=== PATIENT | male | born 1960 | race African-American/Black ===

== ENCOUNTER 2021-08-18 17:19 | Inpatient (IN) ==
[2021-08-18 19:09] LABS: Basophils # 0.1 10*3/uL (0.0-0.2); Basophils % 1.3 % (0.0-0.8); Eosinophils # 0.3 10*3/uL (0.0-0.87); Hematocrit 29.8 VOL% (42.0-52.0); Hemoglobin 9.4 GM/DL (14.0-18.0); Immature Granulocytes % 0.4 %; Immature Granulocytes Absolute 0.03 #; Lymphocytes # 1.5 10*3/uL (1.4-4.0); Lymphocytes % 17.3 % (21.2-54.2); Mean Corpuscular HGB Conc 31.5 GM/DL (32-36); Mean Corpuscular Volume 89.5 FL (87-102); Mean Platelet Volume 10.1 FL (9.6-12.0); Monocytes # 0.4 10*3/uL (0.11-0.8); Monocytes % 4.6 % (1.7-12.7); Neutrophils % 72.4 % (38.7-73.9); Platelet Count 320 T/CUMM (130-400); Red Blood Count 3.33 MC/CUMM (3.8-5.5); Red Cell Distribution Width 13.7 % (9.3-17.3); White Blood Count 8.5 T/CUMM (4-12)
[2021-08-18] MEDS ORDERED: PROMETHAZINE INJ 25 MG in SODIUM CHLORIDE 0.9% 50 ML IV STA (19:12)
[2021-08-18] MEDS ORDERED: SODIUM CHLORIDE 0.9% 1,000 ML IV STA (19:12)
[2021-08-18] MEDS ORDERED: PROMETHAZINE 25 MG/1 ML VIAL ONE (19:12)
[2021-08-18 19:28] LABS: Alanine Aminotransferase 10 U/L (16-61); Albumin 2.9 G/DL (3.4-5.0); Alkaline Phosphatase 57 U/L (45-117); Aspartate Amino Transferase 11 U/L (0-37); Bilirubin,Total < 0.39 MG/DL (0.20-1.00); Blood Urea Nitrogen 91 MG/DL (7-18); Carbon Dioxide 27 MMOL/L (21-32); Chloride 105 MMOL/L (98-107); Estimated Glom Filtration Rate 16 ML/MIN; Glucose 87 MG/DL (74-106); Osmolality,Calculated 303.5 MOS/KG (273-304); Potassium 4.1 MMOL/L (3.5-5.1); Sodium 139 MMOL/L (136-145); Total Protein 6.5 G/DL (6.4-8.2)
[2021-08-18] MEDS ORDERED: ONDANSETRON 4 MG/2 ML VIAL ONE (21:44)
[2021-08-18] MEDS ORDERED: ONDANSETRON 4 MG/2 ML VIAL IV STA (21:44)
[2021-08-18] MEDS ORDERED: ZALEPLON 5 MG CAPSULE PO PRN (22:47)
[2021-08-18] MEDS ORDERED: MORPHINE 2 MG/1 ML SYRINGE IV PRN (22:47)
[2021-08-18] MEDS ORDERED: GLUCAGON 1 MG VIAL IM PRN ×2 (22:47)
[2021-08-18] MEDS ORDERED: guaiFENesin/DM ER 600-30 MG TABLET PO PRN (22:47)
[2021-08-18] MEDS ORDERED: DEXTROSE 10% 250 ML BAG IV PRN (22:47)
[2021-08-18] MEDS ORDERED: diphenhydrAMINE CAP 25 MG CAPSULE PO PRN (22:47)
[2021-08-18] MEDS ORDERED: DEXTROSE 50% 25 GM/50 ML VIAL IV PRN (22:47)
[2021-08-18] MEDS ORDERED: hydrALAZINE 20 MG/1 ML VIAL IV PRN (22:47)
[2021-08-18] MEDS ORDERED: NICOTINE 21 MG/24 HR PATCH TRANSDERM PRN (22:47)
[2021-08-19] MEDS: SODIUM CHLORIDE 0.9% 1,000 ML IV SCH ×2 (00:06→15:38)
[2021-08-19] MEDS: HEPARIN 5,000 UNIT/1 ML VIAL SUBCUT SCH ×3 (00:06→21:33)
[2021-08-19] MEDS: cefTRIAXone 1,000 MG in SODIUM CHLORIDE 0.9% 100 ML IV SCH ×2 (00:07→23:09)
[2021-08-19 03:56] LABS: Hepatitis B Core IgM Quant 0.07 Index; Hepatitis B Surface Ag Quant < 0.10 Index; Hepatitis B Surface Ag Result Non-Reactive (NonReactive); Hepatitis C Virus Ab Quant 0.15 Index; Hepatitis C Virus Ab Result Non-Reactive (NonReactive)
[2021-08-19] MEDS: ONDANSETRON 4 MG/2 ML VIAL IV PRN ×3 (05:23→23:11)
[2021-08-19 05:39] LABS: Basophils # 0.1 10*3/uL (0.0-0.2); Basophils % 0.8 % (0.0-0.8); Eosinophils # 0.3 10*3/uL (0.0-0.87); Eosinophils % 3.3 % (0.00-10.9); Hematocrit 28.8 VOL% (42.0-52.0); Hemoglobin 8.7 GM/DL (14.0-18.0); Immature Granulocytes % 0.5 %; Immature Granulocytes Absolute 0.04 #; Lymphocytes # 1.3 10*3/uL (1.4-4.0); Mean Corpuscular HGB Conc 30.2 GM/DL (32-36); Mean Corpuscular Volume 91.7 FL (87-102); Mean Platelet Volume 10.3 FL (9.6-12.0); Monocytes # 0.3 10*3/uL (0.11-0.8); Monocytes % 4.1 % (1.7-12.7); Neutrophils % 74.3 % (38.7-73.9); Platelet Count 322 T/CUMM (130-400); Red Blood Count 3.14 MC/CUMM (3.8-5.5); Red Cell Distribution Width 13.7 % (9.3-17.3); White Blood Count 7.5 T/CUMM (4-12)
[2021-08-19 05:55] LABS: Alanine Aminotransferase < 9 U/L (16-61); Albumin 2.6 G/DL (3.4-5.0); Alkaline Phosphatase 51 U/L (45-117); Aspartate Amino Transferase 11 U/L (0-37); Bilirubin,Total < 0.39 MG/DL (0.20-1.00); Blood Urea Nitrogen 91 MG/DL (7-18); Calcium 7.8 MG/DL (8.5-10.1); Carbon Dioxide 25 MMOL/L (21-32); Chloride 107 MMOL/L (98-107); Estimated Glom Filtration Rate 17 ML/MIN; Glucose 83 MG/DL (74-106); Osmolality,Calculated 307.3 MOS/KG (273-304); Potassium 3.9 MMOL/L (3.5-5.1); Sodium 141 MMOL/L (136-145); Total Protein 5.9 G/DL (6.4-8.2)
[2021-08-19] MEDS: PANTOPRAZOLE 40 MG TABLET PO SCH (09:10)
[2021-08-19] MEDS ORDERED: ALUMINUM/MAGNES/SIMETH MAX STR 30 ML UDCUP PO PRN (13:18)
[2021-08-20 05:04] LABS: Basophils % 0.4 % (0.0-0.8); Eosinophils # 0.1 10*3/uL (0.0-0.87); Eosinophils % 1.1 % (0.00-10.9); Hematocrit 26.7 VOL% (42.0-52.0); Hemoglobin 8.1 GM/DL (14.0-18.0); Immature Granulocytes % 0.4 %; Immature Granulocytes Absolute 0.04 #; Lymphocytes # 1.4 10*3/uL (1.4-4.0); Lymphocytes % 13.3 % (21.2-54.2); Mean Corpuscular HGB Conc 30.3 GM/DL (32-36); Mean Corpuscular Volume 91.1 FL (87-102); Mean Platelet Volume 10.4 FL (9.6-12.0); Monocytes # 0.5 10*3/uL (0.11-0.8); Monocytes % 4.7 % (1.7-12.7); Neutrophils % 80.1 % (38.7-73.9); Platelet Count 281 T/CUMM (130-400); Red Blood Count 2.93 MC/CUMM (3.8-5.5); Red Cell Distribution Width 13.6 % (9.3-17.3); White Blood Count 10.2 T/CUMM (4-12)
[2021-08-20 05:24] LABS: Alanine Aminotransferase < 9 U/L (16-61); Albumin 2.5 G/DL (3.4-5.0); Alkaline Phosphatase 47 U/L (45-117); Aspartate Amino Transferase 11 U/L (0-37); Bilirubin,Total < 0.39 MG/DL (0.20-1.00); Blood Urea Nitrogen 93 MG/DL (7-18); Calcium 7.4 MG/DL (8.5-10.1); Carbon Dioxide 21 MMOL/L (21-32); Chloride 110 MMOL/L (98-107); Estimated Glom Filtration Rate 15 ML/MIN; Glucose 76 MG/DL (74-106); Osmolality,Calculated 313.8 MOS/KG (273-304); Sodium 144 MMOL/L (136-145); Total Protein 5.6 G/DL (6.4-8.2)
[2021-08-20] MEDS: SODIUM CHLORIDE 0.9% 1,000 ML IV SCH (08:23)
[2021-08-20] MEDS: PANTOPRAZOLE 40 MG TABLET PO SCH ×2 (09:03→20:56)
[2021-08-20] MEDS: HEPARIN 5,000 UNIT/1 ML VIAL SUBCUT SCH ×2 (09:03→20:56)
[2021-08-20 10:10] LABS: INR 1.1; PT Patient Result 12.2 SECS (10.5-12.0)
[2021-08-20] MEDS: ONDANSETRON 4 MG/2 ML VIAL IV PRN (16:44)
[2021-08-20] MEDS: cefTRIAXone 1,000 MG in SODIUM CHLORIDE 0.9% 100 ML IV SCH (22:10)
[2021-08-21] MEDS: SODIUM CHLORIDE 0.9% 1,000 ML IV SCH ×3 (02:26→22:50)
[2021-08-21 06:11] LABS: Basophils # 0.1 10*3/uL (0.0-0.2); Basophils % 0.7 % (0.0-0.8); Eosinophils # 0.2 10*3/uL (0.0-0.87); Eosinophils % 2.3 % (0.00-10.9); Hematocrit 26.5 VOL% (42.0-52.0); Lymphocytes # 1.5 10*3/uL (1.4-4.0); Lymphocytes % 17.1 % (21.2-54.2); Mean Corpuscular HGB Conc 30.2 GM/DL (32-36); Mean Corpuscular Volume 91.1 FL (87-102); Mean Platelet Volume 10.5 FL (9.6-12.0); Monocytes # 0.5 10*3/uL (0.11-0.8); Monocytes % 5.8 % (1.7-12.7); Neutrophils % 73.5 % (38.7-73.9); Platelet Count 282 T/CUMM (130-400); Red Blood Count 2.91 MC/CUMM (3.8-5.5); Red Cell Distribution Width 13.9 % (9.3-17.3); White Blood Count 8.9 T/CUMM (4-12)
[2021-08-21 06:23] LABS: PT Patient Result 11.7 SECS (10.5-12.0)
[2021-08-21 06:35] LABS: Alanine Aminotransferase < 9 U/L (16-61); Albumin 2.4 G/DL (3.4-5.0); Alkaline Phosphatase 44 U/L (45-117); Aspartate Amino Transferase 10 U/L (0-37); Bilirubin,Total < 0.39 MG/DL (0.20-1.00); Blood Urea Nitrogen 92 MG/DL (7-18); Calcium 7.5 MG/DL (8.5-10.1); Carbon Dioxide 22 MMOL/L (21-32); Chloride 112 MMOL/L (98-107); Estimated Glom Filtration Rate 16 ML/MIN; Glucose 75 MG/DL (74-106); Osmolality,Calculated 314.7 MOS/KG (273-304); Sodium 145 MMOL/L (136-145); Total Protein 5.6 G/DL (6.4-8.2)
[2021-08-21] MEDS: HEPARIN 5,000 UNIT/1 ML VIAL SUBCUT SCH ×2 (08:57→21:09)
[2021-08-21] MEDS: PANTOPRAZOLE 40 MG TABLET PO SCH ×2 (09:24→21:08)
[2021-08-21 15:05] LABS: Hematocrit 29.8 VOL% (42.0-52.0)
[2021-08-21] MEDS: cefTRIAXone 1,000 MG in SODIUM CHLORIDE 0.9% 100 ML IV SCH (22:50)
[2021-08-22 05:21] LABS: Basophils # 0.1 10*3/uL (0.0-0.2); Basophils % 0.9 % (0.0-0.8); Eosinophils # 0.4 10*3/uL (0.0-0.87); Eosinophils % 5.3 % (0.00-10.9); Hemoglobin 8.5 GM/DL (14.0-18.0); Immature Granulocytes % 0.4 %; Immature Granulocytes Absolute 0.03 #; Lymphocytes # 1.5 10*3/uL (1.4-4.0); Mean Corpuscular HGB Conc 30.4 GM/DL (32-36); Mean Corpuscular Volume 92.4 FL (87-102); Mean Platelet Volume 10.3 FL (9.6-12.0); Monocytes # 0.4 10*3/uL (0.11-0.8); Monocytes % 5.6 % (1.7-12.7); Neutrophils % 68.8 % (38.7-73.9); Platelet Count 279 T/CUMM (130-400); Red Blood Count 3.03 MC/CUMM (3.8-5.5); Red Cell Distribution Width 13.8 % (9.3-17.3); White Blood Count 7.8 T/CUMM (4-12)
[2021-08-22 05:32] LABS: INR 1.1; PT Patient Result 11.9 SECS (10.5-12.0)
[2021-08-22 05:46] LABS: Alanine Aminotransferase 9 U/L (16-61); Albumin 2.3 G/DL (3.4-5.0); Alkaline Phosphatase 44 U/L (45-117); Aspartate Amino Transferase 9 U/L (0-37); Bilirubin,Total < 0.39 MG/DL (0.20-1.00); Blood Urea Nitrogen 85 MG/DL (7-18); Calcium 7.6 MG/DL (8.5-10.1); Carbon Dioxide 21 MMOL/L (21-32); Chloride 112 MMOL/L (98-107); Estimated Glom Filtration Rate 18 ML/MIN; Glucose 75 MG/DL (74-106); Osmolality,Calculated 312.7 MOS/KG (273-304); Sodium 145 MMOL/L (136-145); Total Protein 5.5 G/DL (6.4-8.2)
[2021-08-22] MEDS: ONDANSETRON 4 MG/2 ML VIAL IV PRN (05:53)
[2021-08-22] MEDS: HEPARIN 5,000 UNIT/1 ML VIAL SUBCUT SCH ×2 (08:09→20:55)
[2021-08-22] MEDS ORDERED: DIAZEPAM 5 MG TABLET PO ONE (13:09)
[2021-08-22] MEDS: PANTOPRAZOLE 40 MG TABLET PO SCH ×2 (13:14→20:55)
[2021-08-22 16:40] LABS: Neutrophils,Peritoneal Fluid 35 %; RBC,Peritoneal Fluid 28 T/CUMM
[2021-08-22] MEDS: SODIUM CHLORIDE 0.9% 1,000 ML IV SCH (18:26)
[2021-08-22] MEDS: cefTRIAXone 1,000 MG in SODIUM CHLORIDE 0.9% 100 ML IV SCH (23:11)
[2021-08-23] MEDS: SODIUM CHLORIDE 0.9% 1,000 ML IV SCH ×2 (04:01→13:33)
[2021-08-23 05:04] LABS: Basophils % 0.5 % (0.0-0.8); Eosinophils # 0.4 10*3/uL (0.0-0.87); Eosinophils % 4.7 % (0.00-10.9); Hemoglobin 8.7 GM/DL (14.0-18.0); Immature Granulocytes % 0.4 %; Immature Granulocytes Absolute 0.03 #; Lymphocytes # 1.4 10*3/uL (1.4-4.0); Lymphocytes % 16.6 % (21.2-54.2); Mean Corpuscular HGB Conc 31.1 GM/DL (32-36); Mean Corpuscular Volume 89.5 FL (87-102); Mean Platelet Volume 9.9 FL (9.6-12.0); Monocytes # 0.5 10*3/uL (0.11-0.8); Monocytes % 5.7 % (1.7-12.7); Neutrophils % 72.1 % (38.7-73.9); Platelet Count 280 T/CUMM (130-400); Red Blood Count 3.13 MC/CUMM (3.8-5.5); Red Cell Distribution Width 13.6 % (9.3-17.3); White Blood Count 8.5 T/CUMM (4-12)
[2021-08-23 05:21] LABS: Calcium 7.3 MG/DL (8.5-10.1); Osmolality,Calculated 311.1 MOS/KG (273-304); Potassium 3.7 MMOL/L (3.5-5.1)
[2021-08-23] MEDS ORDERED: LOPERAMIDE 2 MG CAPSULE PO ONE (05:25)
[2021-08-23] MEDS: HEPARIN 5,000 UNIT/1 ML VIAL SUBCUT SCH (09:39)
[2021-08-23] MEDS: PANTOPRAZOLE 40 MG TABLET PO SCH ×2 (09:39→22:24)
[2021-08-23] MEDS: cefTRIAXone 1,000 MG in SODIUM CHLORIDE 0.9% 100 ML IV SCH (22:25)
[2021-08-24 04:58] LABS: Basophils # 0.1 10*3/uL (0.0-0.2); Basophils % 0.7 % (0.0-0.8); Eosinophils # 0.5 10*3/uL (0.0-0.87); Hematocrit 28.4 VOL% (42.0-52.0); Hemoglobin 8.6 GM/DL (14.0-18.0); Immature Granulocytes % 0.7 %; Immature Granulocytes Absolute 0.05 #; Lymphocytes # 1.8 10*3/uL (1.4-4.0); Mean Corpuscular HGB Conc 30.3 GM/DL (32-36); Mean Platelet Volume 10.3 FL (9.6-12.0); Monocytes # 0.5 10*3/uL (0.11-0.8); Monocytes % 6.4 % (1.7-12.7); Neutrophils % 60.2 % (38.7-73.9); Platelet Count 278 T/CUMM (130-400); Red Blood Count 3.12 MC/CUMM (3.8-5.5); Red Cell Distribution Width 13.8 % (9.3-17.3); White Blood Count 7.3 T/CUMM (4-12)
[2021-08-24 05:19] LABS: Calcium 7.3 MG/DL (8.5-10.1); Osmolality,Calculated 300.4 MOS/KG (273-304); Potassium 3.6 MMOL/L (3.5-5.1)
[2021-08-24] MEDS: LACTATED RINGERS 1,000 ML IV SCH (11:15)
[2021-08-24] MEDS ORDERED: BISACODYL 5 MG TABLET PO ONE (12:00)
[2021-08-24] MEDS: SODIUM CHLORIDE 0.9% 1,000 ML IV SCH ×2 (12:11→13:55)
[2021-08-24] MEDS ORDERED: propofoL 200 MG/20 ML VIAL IV ONE (13:03)
[2021-08-24] MEDS ORDERED: LIDOCAINE 2% 5 ML VIAL ONE (13:03)
[2021-08-24] MEDS: PANTOPRAZOLE 40 MG TABLET PO SCH ×2 (14:00→21:58)
[2021-08-24] MEDS ORDERED: POLYETHYLENE GLYCOL POWDER 255 GM BOTTLE PO ONE (18:00)
[2021-08-24] MEDS ORDERED: MAGNESIUM CITRATE 300 ML BOTTLE PO ONE (21:00)
[2021-08-25] MEDS: cefTRIAXone 1,000 MG in SODIUM CHLORIDE 0.9% 100 ML IV SCH (00:28)
[2021-08-25 04:23] LABS: Basophils # 0.1 10*3/uL (0.0-0.2); Basophils % 1.1 % (0.0-0.8); Eosinophils # 0.5 10*3/uL (0.0-0.87); Eosinophils % 6.3 % (0.00-10.9); Immature Granulocytes % 0.6 %; Immature Granulocytes Absolute 0.04 #; Lymphocytes # 1.8 10*3/uL (1.4-4.0); Lymphocytes % 25.3 % (21.2-54.2); Mean Corpuscular HGB Conc 30.8 GM/DL (32-36); Monocytes # 0.5 10*3/uL (0.11-0.8); Monocytes % 6.3 % (1.7-12.7); Neutrophils % 60.4 % (38.7-73.9); Platelet Count 259 T/CUMM (130-400); Red Blood Count 2.89 MC/CUMM (3.8-5.5); Red Cell Distribution Width 13.7 % (9.3-17.3); White Blood Count 7.3 T/CUMM (4-12)
[2021-08-25 04:36] LABS: Osmolality,Calculated 296.4 MOS/KG (273-304); Potassium 3.9 MMOL/L (3.5-5.1)
[2021-08-25 04:40] LABS: INR 1.1; PT Patient Result 11.8 SECS (10.5-12.0)
[2021-08-25] MEDS ORDERED: LACTATED RINGERS 1,000 ML IV SCH (08:00)
[2021-08-25] MEDS: PANTOPRAZOLE 40 MG TABLET PO SCH (09:37)
[2021-08-25] MEDS: LACTATED RINGERS 1,000 ML IV SCH (11:25)
[2021-08-25 16:42] VITALS: BP 129/81
== END 2021-08-25 18:31 | disposition home or self-care (01) | DRG 392 ==
LOC: N.ED 17:19 → SUATTDRO 22:47 → N.EDINP 22:47 → N.TELES 08-19 16:18
PROVIDERS: ADMIT Internal Medicine; ATTEND Internal Medicine

== ENCOUNTER 2021-09-13 06:40 | Inpatient (IN) ==
[2021-09-13 08:00] LABS: Basophils % 0.1 % (0.0-0.8); Eosinophils # 0.1 10*3/uL (0.0-0.87); Eosinophils % 0.9 % (0.00-10.9); Hematocrit 31.8 VOL% (42.0-52.0); Hemoglobin 9.6 GM/DL (14.0-18.0); Immature Granulocytes % 0.6 %; Immature Granulocytes Absolute 0.04 #; Lymphocytes # 0.9 10*3/uL (1.4-4.0); Lymphocytes % 13.5 % (21.2-54.2); Mean Corpuscular HGB Conc 30.2 GM/DL (32-36); Mean Corpuscular Volume 91.9 FL (87-102); Monocytes # 0.3 10*3/uL (0.11-0.8); Neutrophils % 79.9 % (38.7-73.9); Platelet Count 401 T/CUMM (130-400); Red Blood Count 3.46 MC/CUMM (3.8-5.5); Red Cell Distribution Width 15.4 % (9.3-17.3); White Blood Count 6.8 T/CUMM (4-12)
[2021-09-13 08:09] LABS: Mucus,Urine Occasional /LPF (Occasional); RBC,Urine 4152 /HPF (0-4)
[2021-09-13 08:10] LABS: Glucose,Urine (UA) Negative (Negative); Protein,Urine 100 mg/dL (Negative); Urine Appearance Cloudy (Clear); Urine Color Brown (Yellow)
[2021-09-13 08:11] LABS: Bilirubin,Urine Moderate mg/dL (Negative); Blood, Urine Large mg/dL (Negative); Ketones,Urine 15 mg/dL (Negative); Nitrite,Urine Negative (Negative); Urine Urobilinogen 0.2 eU/dL (<2.0)
[2021-09-13 08:14] LABS: PT Patient Result 11.4 SECS (10.5-12.0)
[2021-09-13 08:20] LABS: Alanine Aminotransferase < 9 U/L (16-61); Albumin 2.1 G/DL (3.4-5.0); Alkaline Phosphatase 41 U/L (45-117); Aspartate Amino Transferase 11 U/L (0-37); Bilirubin,Total < 0.39 MG/DL (0.20-1.00); Blood Urea Nitrogen 106 MG/DL (7-18); Calcium 7.9 MG/DL (8.5-10.1); Carbon Dioxide 20 MMOL/L (21-32); Chloride 111 MMOL/L (98-107); Estimated Glom Filtration Rate 14 ML/MIN; Glucose 80 MG/DL (74-106); Osmolality,Calculated 314.1 MOS/KG (273-304); Potassium 5.4 MMOL/L (3.5-5.1); Sodium 142 MMOL/L (136-145); Total Protein 5.3 G/DL (6.4-8.2)
[2021-09-13] MEDS ORDERED: SODIUM CHLORIDE 0.9% 500 ML IV STA (09:14)
[2021-09-13] MEDS ORDERED: GLUCAGON 1 MG VIAL IM PRN (10:22)
[2021-09-13] MEDS ORDERED: ACETAMINOPHEN 325 MG TABLET PO PRN (10:22)
[2021-09-13] MEDS ORDERED: DEXTROSE 10% 25 GM/250 ML BAG IV PRN (10:22)
[2021-09-13] MEDS ORDERED: ONDANSETRON 4 MG/2 ML VIAL IV PRN (10:22)
[2021-09-13] MEDS ORDERED: SODIUM CHLORIDE 0.9% 1,000 ML IV STA (10:35)
[2021-09-13] MEDS ORDERED: ALBUMIN 25% 12.5 GM/50 ML VIAL IV ONE ×2 (12:45→12:48)
[2021-09-13] MEDS: INSULIN LISPRO 100 UNIT/ML SUBCUT SCH ×3 (13:47→22:42)
[2021-09-13] MEDS: cefTRIAXone 2,000 MG in SODIUM CHLORIDE 0.9% 100 ML IV SCH (14:16)
[2021-09-13 14:25] LABS: Neutrophils,Peritoneal Fluid 15 %
[2021-09-13] MEDS: SODIUM CHLORIDE 0.9% 1,000 ML IV SCH (14:25)
[2021-09-13 14:33] LABS: RBC,Peritoneal Fluid 1127 T/CUMM
[2021-09-13 17:21] LABS: Hemoglobin 9.7 GM/DL (14.0-18.0)
[2021-09-13 17:45] LABS: Calcium 7.4 MG/DL (8.5-10.1); Osmolality,Calculated 318.8 MOS/KG (273-304); Potassium 5.1 MMOL/L (3.5-5.1)
[2021-09-13 19:00] LABS: Hematocrit 32.6 VOL% (42.0-52.0); Hemoglobin 9.9 GM/DL (14.0-18.0)
[2021-09-13] MEDS: TOPIRAMATE 25 MG TABLET PO SCH (20:44)
[2021-09-13] MEDS: ATORVASTATIN 40 MG TABLET PO SCH (20:44)
[2021-09-14 00:52] LABS: Hematocrit 28.9 VOL% (42.0-52.0); Hemoglobin 8.7 GM/DL (14.0-18.0)
[2021-09-14] MEDS: SODIUM CHLORIDE 0.9% 1,000 ML IV SCH ×2 (01:06→14:25)
[2021-09-14 06:14] LABS: Basophils % 0.1 % (0.0-0.8); Eosinophils # 0.1 10*3/uL (0.0-0.87); Eosinophils % 1.5 % (0.00-10.9); Hematocrit 29.9 VOL% (42.0-52.0); Hemoglobin 9.1 GM/DL (14.0-18.0); Immature Granulocytes % 0.6 %; Immature Granulocytes Absolute 0.04 #; Lymphocytes % 15.2 % (21.2-54.2); Mean Corpuscular HGB Conc 30.4 GM/DL (32-36); Mean Platelet Volume 10.4 FL (9.6-12.0); Monocytes # 0.4 10*3/uL (0.11-0.8); Monocytes % 5.8 % (1.7-12.7); Neutrophils % 76.8 % (38.7-73.9); Platelet Count 351 T/CUMM (130-400); Red Blood Count 3.25 MC/CUMM (3.8-5.5); Red Cell Distribution Width 15.5 % (9.3-17.3); White Blood Count 6.8 T/CUMM (4-12)
[2021-09-14 06:33] LABS: Calcium 7.3 MG/DL (8.5-10.1); Osmolality,Calculated 318.7 MOS/KG (273-304); Potassium 5.3 MMOL/L (3.5-5.1)
[2021-09-14] MEDS: NICOTINE 21 MG/24 HR PATCH TRANSDERM SCH (08:19)
[2021-09-14] MEDS: TOPIRAMATE 25 MG TABLET PO SCH ×3 (08:20→20:35)
[2021-09-14] MEDS: BISACODYL 5 MG TABLET PO SCH (08:20)
[2021-09-14] MEDS: ASCORBIC ACID 500 MG TABLET PO SCH (08:20)
[2021-09-14] MEDS: FERROUS SULFATE 325 MG TABLET PO SCH (08:20)
[2021-09-14] MEDS ORDERED: SODIUM POLYSTYRENE SULFATE 15 GM/60 ML BOTTLE PO STA (08:45)
[2021-09-14] MEDS: INSULIN LISPRO 100 UNIT/ML SUBCUT SCH ×4 (09:06→20:02)
[2021-09-14] MEDS: cefTRIAXone 2,000 MG in SODIUM CHLORIDE 0.9% 100 ML IV SCH (10:35)
[2021-09-14] MEDS: PANTOPRAZOLE 40 MG VIAL IV SCH (10:35)
[2021-09-14] MEDS: ATORVASTATIN 40 MG TABLET PO SCH (20:35)
[2021-09-15] MEDS: SODIUM CHLORIDE 0.9% 1,000 ML IV SCH ×2 (04:09→19:38)
[2021-09-15 05:48] LABS: Basophils % 0.3 % (0.0-0.8); Eosinophils # 0.2 10*3/uL (0.0-0.87); Eosinophils % 1.9 % (0.00-10.9); Hematocrit 30.5 VOL% (42.0-52.0); Hemoglobin 9.3 GM/DL (14.0-18.0); Immature Granulocytes % 0.4 %; Immature Granulocytes Absolute 0.03 #; Lymphocytes # 1.1 10*3/uL (1.4-4.0); Lymphocytes % 13.4 % (21.2-54.2); Mean Corpuscular HGB Conc 30.5 GM/DL (32-36); Mean Corpuscular Volume 92.4 FL (87-102); Mean Platelet Volume 9.9 FL (9.6-12.0); Monocytes # 0.5 10*3/uL (0.11-0.8); Monocytes % 6.2 % (1.7-12.7); Neutrophils % 77.8 % (38.7-73.9); Platelet Count 326 T/CUMM (130-400); Red Cell Distribution Width 15.4 % (9.3-17.3); White Blood Count 7.9 T/CUMM (4-12)
[2021-09-15 06:09] LABS: Alanine Aminotransferase < 9 U/L (16-61); Albumin 1.8 G/DL (3.4-5.0); Alkaline Phosphatase 41 U/L (45-117); Aspartate Amino Transferase 10 U/L (0-37); Bilirubin,Total < 0.39 MG/DL (0.20-1.00); Blood Urea Nitrogen 95 MG/DL (7-18); Calcium 7.5 MG/DL (8.5-10.1); Carbon Dioxide 19 MMOL/L (21-32); Chloride 117 MMOL/L (98-107); Glucose 111 MG/DL (74-106); Osmolality,Calculated 317.7 MOS/KG (273-304); Potassium 4.4 MMOL/L (3.5-5.1); Sodium 145 MMOL/L (136-145); Total Protein 4.5 G/DL (6.4-8.2)
[2021-09-15] MEDS: INSULIN LISPRO 100 UNIT/ML SUBCUT SCH ×4 (07:15→20:25)
[2021-09-15] MEDS ORDERED: fentaNYL 100 MCG/2 ML VIAL ONE (09:03)
[2021-09-15] MEDS ORDERED: LIDOCAINE 1%/EPI INJ 20 ML VIAL ONE (09:06)
[2021-09-15] MEDS ORDERED: BUPIVACAINE MPF 0.25% 30 ML VIAL ONE (09:06)
[2021-09-15] MEDS ORDERED: TISSUE ADHESIVE 1 EACH APPLICATOR TOP ONE (09:06)
[2021-09-15] MEDS: BISACODYL 5 MG TABLET PO SCH (09:20)
[2021-09-15] MEDS: FERROUS SULFATE 325 MG TABLET PO SCH (09:20)
[2021-09-15] MEDS: ASCORBIC ACID 500 MG TABLET PO SCH (09:21)
[2021-09-15] MEDS: TOPIRAMATE 25 MG TABLET PO SCH ×4 (09:21→20:56)
[2021-09-15] MEDS ORDERED: PHENYLEPHRINE 1 MG/10 ML SYRINGE IV ONE (09:43)
[2021-09-15] MEDS ORDERED: PHENYLEPHRINE 10 MG/1 ML VIAL IV ONE (09:53)
[2021-09-15] MEDS ORDERED: INDOCYANINE GREEN 25 MG VIAL IV ONE (10:08)
[2021-09-15] MEDS ORDERED: DESFLURANE 1 UNIT/15 MINUTE INH ONE (10:17)
[2021-09-15] MEDS ORDERED: ROCURONIUM 50 MG/5 ML VIAL IV ONE (10:17)
[2021-09-15] MEDS ORDERED: ETOMIDATE 40 MG/20 ML VIAL IV ONE (10:17)
[2021-09-15] MEDS ORDERED: SUCCINYLCHOLINE 200 MG/10 ML VIAL ONE (10:17)
[2021-09-15] MEDS ORDERED: LIDOCAINE 2% 5 ML VIAL ONE (10:17)
[2021-09-15] MEDS ORDERED: ONDANSETRON 4 MG/2 ML VIAL ONE (10:18)
[2021-09-15] MEDS ORDERED: SUGAMMADEX 200 MG/2 ML VIAL IV ONE (10:37)
[2021-09-15] MEDS ORDERED: HYDROmorphone 1 MG/1 ML SYRINGE ONE (11:46)
[2021-09-15] MEDS ORDERED: ONDANSETRON 4 MG/2 ML VIAL IV PRN (11:46)
[2021-09-15] MEDS ORDERED: HYDROmorphone 1 MG/1 ML SYRINGE IV PRN (11:46)
[2021-09-15] MEDS: cefTRIAXone 2,000 MG in SODIUM CHLORIDE 0.9% 100 ML IV SCH (14:33)
[2021-09-15] MEDS: NICOTINE 21 MG/24 HR PATCH TRANSDERM SCH (14:34)
[2021-09-15] MEDS: PANTOPRAZOLE 40 MG VIAL IV SCH (14:36)
[2021-09-15] MEDS: HYDROmorphone 1 MG/1 ML SYRINGE IV PRN (18:32)
[2021-09-15] MEDS: ATORVASTATIN 40 MG TABLET PO SCH (20:56)
[2021-09-16 05:35] LABS: Basophils % 0.4 % (0.0-0.8); Eosinophils # 0.2 10*3/uL (0.0-0.87); Eosinophils % 1.8 % (0.00-10.9); Hematocrit 33.2 VOL% (42.0-52.0); Hemoglobin 9.8 GM/DL (14.0-18.0); Immature Granulocytes % 0.4 %; Immature Granulocytes Absolute 0.04 #; Lymphocytes # 1.3 10*3/uL (1.4-4.0); Lymphocytes % 12.5 % (21.2-54.2); Mean Corpuscular HGB Conc 29.5 GM/DL (32-36); Mean Platelet Volume 10.8 FL (9.6-12.0); Monocytes # 0.6 10*3/uL (0.11-0.8); Monocytes % 5.7 % (1.7-12.7); Neutrophils % 79.2 % (38.7-73.9); Platelet Count 286 T/CUMM (130-400); Red Blood Count 3.57 MC/CUMM (3.8-5.5); Red Cell Distribution Width 15.6 % (9.3-17.3)
[2021-09-16 05:54] LABS: Alanine Aminotransferase < 6 U/L (16-61); Albumin 1.7 G/DL (3.4-5.0); Alkaline Phosphatase 38 U/L (45-117); Aspartate Amino Transferase 10 U/L (0-37); Bilirubin,Total < 0.39 MG/DL (0.20-1.00); Blood Urea Nitrogen 83 MG/DL (7-18); Calcium 7.2 MG/DL (8.5-10.1); Carbon Dioxide 19 MMOL/L (21-32); Chloride 120 MMOL/L (98-107); Glucose 67 MG/DL (74-106); Osmolality,Calculated 316.3 MOS/KG (273-304); Potassium 4.4 MMOL/L (3.5-5.1); Sodium 148 MMOL/L (136-145); Total Protein 4.2 G/DL (6.4-8.2)
[2021-09-16] MEDS: ASCORBIC ACID 500 MG TABLET PO SCH (08:18)
[2021-09-16] MEDS: FERROUS SULFATE 325 MG TABLET PO SCH (08:19)
[2021-09-16] MEDS: TOPIRAMATE 25 MG TABLET PO SCH ×3 (08:19→20:56)
[2021-09-16] MEDS: PANTOPRAZOLE 40 MG VIAL IV SCH (08:19)
[2021-09-16] MEDS: BISACODYL 5 MG TABLET PO SCH (08:19)
[2021-09-16] MEDS: NICOTINE 21 MG/24 HR PATCH TRANSDERM SCH (08:20)
[2021-09-16] MEDS: HYDROmorphone 1 MG/1 ML SYRINGE IV PRN ×3 (08:21→23:19)
[2021-09-16] MEDS: INSULIN LISPRO 100 UNIT/ML SUBCUT SCH ×4 (08:33→20:16)
[2021-09-16] MEDS ORDERED: LACTATED RINGERS 1,000 ML IV SCH (11:00)
[2021-09-16] MEDS: cefTRIAXone 2,000 MG in SODIUM CHLORIDE 0.9% 100 ML IV SCH (11:27)
[2021-09-16] MEDS: SODIUM CHLORIDE 0.9% 1,000 ML IV SCH ×2 (18:25→19:46)
[2021-09-16] MEDS: ATORVASTATIN 40 MG TABLET PO SCH (20:56)
[2021-09-17 05:13] LABS: Basophils # 0.1 10*3/uL (0.0-0.2); Basophils % 0.5 % (0.0-0.8); Eosinophils # 0.3 10*3/uL (0.0-0.87); Eosinophils % 2.3 % (0.00-10.9); Hematocrit 34.3 VOL% (42.0-52.0); Hemoglobin 10.1 GM/DL (14.0-18.0); Immature Granulocytes % 0.4 %; Immature Granulocytes Absolute 0.05 #; Lymphocytes # 1.1 10*3/uL (1.4-4.0); Lymphocytes % 10.1 % (21.2-54.2); Mean Corpuscular HGB Conc 29.4 GM/DL (32-36); Mean Corpuscular Volume 93.7 FL (87-102); Mean Platelet Volume 10.4 FL (9.6-12.0); Monocytes # 0.4 10*3/uL (0.11-0.8); Monocytes % 3.7 % (1.7-12.7); Platelet Count 320 T/CUMM (130-400); Red Blood Count 3.66 MC/CUMM (3.8-5.5); Red Cell Distribution Width 15.9 % (9.3-17.3); White Blood Count 11.3 T/CUMM (4-12)
[2021-09-17] MEDS: SODIUM CHLORIDE 0.9% 1,000 ML IV SCH (05:33)
[2021-09-17 05:40] LABS: Alanine Aminotransferase < 6 U/L (16-61); Albumin 1.7 G/DL (3.4-5.0); Alkaline Phosphatase 37 U/L (45-117); Aspartate Amino Transferase 11 U/L (0-37); Bilirubin,Total < 0.39 MG/DL (0.20-1.00); Blood Urea Nitrogen 75 MG/DL (7-18); Calcium 7.4 MG/DL (8.5-10.1); Carbon Dioxide 18 MMOL/L (21-32); Chloride 119 MMOL/L (98-107); Glucose 60 MG/DL (74-106); Osmolality,Calculated 311.4 MOS/KG (273-304); Potassium 4.3 MMOL/L (3.5-5.1); Sodium 147 MMOL/L (136-145); Total Protein 4.4 G/DL (6.4-8.2)
[2021-09-17] MEDS: PANTOPRAZOLE 40 MG VIAL IV SCH (08:19)
[2021-09-17] MEDS: FERROUS SULFATE 325 MG TABLET PO SCH (08:19)
[2021-09-17] MEDS: TOPIRAMATE 25 MG TABLET PO SCH ×3 (08:20→20:55)
[2021-09-17] MEDS: NICOTINE 21 MG/24 HR PATCH TRANSDERM SCH (08:20)
[2021-09-17] MEDS: BISACODYL 5 MG TABLET PO SCH (08:20)
[2021-09-17] MEDS: HYDROmorphone 1 MG/1 ML SYRINGE IV PRN ×2 (08:20→17:38)
[2021-09-17] MEDS: ASCORBIC ACID 500 MG TABLET PO SCH (08:20)
[2021-09-17] MEDS: INSULIN LISPRO 100 UNIT/ML SUBCUT SCH ×4 (08:26→20:58)
[2021-09-17] MEDS: cefTRIAXone 2,000 MG in SODIUM CHLORIDE 0.9% 100 ML IV SCH (11:28)
[2021-09-17] MEDS: SODIUM CHLORIDE 0.45% 1,000 ML IV SCH (18:40)
[2021-09-17] MEDS: ATORVASTATIN 40 MG TABLET PO SCH (20:55)
[2021-09-18] MEDS: SODIUM CHLORIDE 0.45% 1,000 ML IV SCH (03:52)
[2021-09-18] MEDS: HYDROmorphone 1 MG/1 ML SYRINGE IV PRN ×2 (05:36→18:47)
[2021-09-18 05:53] LABS: Basophils % 0.3 % (0.0-0.8); Eosinophils # 0.3 10*3/uL (0.0-0.87); Eosinophils % 2.8 % (0.00-10.9); Hematocrit 34.7 VOL% (42.0-52.0); Hemoglobin 10.3 GM/DL (14.0-18.0); Immature Granulocytes % 0.6 %; Immature Granulocytes Absolute 0.07 #; Lymphocytes % 8.5 % (21.2-54.2); Mean Corpuscular HGB Conc 29.7 GM/DL (32-36); Mean Platelet Volume 10.8 FL (9.6-12.0); Monocytes # 0.4 10*3/uL (0.11-0.8); Monocytes % 3.6 % (1.7-12.7); Neutrophils % 84.2 % (38.7-73.9); Platelet Count 350 T/CUMM (130-400); Red Blood Count 3.73 MC/CUMM (3.8-5.5); Red Cell Distribution Width 15.8 % (9.3-17.3); White Blood Count 11.2 T/CUMM (4-12)
[2021-09-18 06:14] LABS: Alanine Aminotransferase < 6 U/L (16-61); Albumin 1.7 G/DL (3.4-5.0); Alkaline Phosphatase 42 U/L (45-117); Aspartate Amino Transferase 10 U/L (0-37); Bilirubin,Total < 0.39 MG/DL (0.20-1.00); Blood Urea Nitrogen 80 MG/DL (7-18); Calcium 7.5 MG/DL (8.5-10.1); Carbon Dioxide 16 MMOL/L (21-32); Chloride 117 MMOL/L (98-107); Glucose 74 MG/DL (74-106); Osmolality,Calculated 308.8 MOS/KG (273-304); Potassium 4.3 MMOL/L (3.5-5.1); Sodium 144 MMOL/L (136-145); Total Protein 4.3 G/DL (6.4-8.2)
[2021-09-18] MEDS: PANTOPRAZOLE 40 MG VIAL IV SCH ×2 (09:14→21:26)
[2021-09-18] MEDS: NICOTINE 21 MG/24 HR PATCH TRANSDERM SCH (09:15)
[2021-09-18] MEDS: FERROUS SULFATE 325 MG TABLET PO SCH (09:15)
[2021-09-18] MEDS: ASCORBIC ACID 500 MG TABLET PO SCH (09:15)
[2021-09-18] MEDS: TOPIRAMATE 25 MG TABLET PO SCH ×3 (09:15→21:25)
[2021-09-18] MEDS: BISACODYL 5 MG TABLET PO SCH (09:15)
[2021-09-18] MEDS: INSULIN LISPRO 100 UNIT/ML SUBCUT SCH ×4 (10:29→22:53)
[2021-09-18] MEDS: SODIUM BICARB INJ 50 MEQ in SODIUM CHLORIDE 0.45% 1,000 ML IV SCH (12:24)
[2021-09-18] MEDS: cefTRIAXone 2,000 MG in SODIUM CHLORIDE 0.9% 100 ML IV SCH (13:11)
[2021-09-18] MEDS: SUCRALFATE 1 GM/10 ML UDCUP PO SCH (18:11)
[2021-09-18] MEDS: ATORVASTATIN 40 MG TABLET PO SCH (21:25)
[2021-09-19] MEDS: SODIUM BICARB INJ 50 MEQ in SODIUM CHLORIDE 0.45% 1,000 ML IV SCH ×2 (00:55→09:21)
[2021-09-19 05:13] LABS: Basophils % 0.4 % (0.0-0.8); Eosinophils # 0.1 10*3/uL (0.0-0.87); Eosinophils % 1.3 % (0.00-10.9); Hematocrit 35.1 VOL% (42.0-52.0); Hemoglobin 10.8 GM/DL (14.0-18.0); Immature Granulocytes % 0.6 %; Immature Granulocytes Absolute 0.06 #; Lymphocytes # 0.9 10*3/uL (1.4-4.0); Lymphocytes % 8.3 % (21.2-54.2); Mean Corpuscular HGB Conc 30.8 GM/DL (32-36); Mean Corpuscular Volume 91.2 FL (87-102); Mean Platelet Volume 10.4 FL (9.6-12.0); Monocytes # 0.5 10*3/uL (0.11-0.8); Monocytes % 4.5 % (1.7-12.7); NRBC # 0.02 10*3/uL; Neutrophils % 84.9 % (38.7-73.9); Platelet Count 381 T/CUMM (130-400); Red Blood Count 3.85 MC/CUMM (3.8-5.5); Red Cell Distribution Width 15.7 % (9.3-17.3); White Blood Count 10.5 T/CUMM (4-12)
[2021-09-19 05:36] LABS: Alanine Aminotransferase < 6 U/L (16-61); Albumin 1.6 G/DL (3.4-5.0); Alkaline Phosphatase 49 U/L (45-117); Aspartate Amino Transferase 10 U/L (0-37); Bilirubin,Total < 0.39 MG/DL (0.20-1.00); Blood Urea Nitrogen 69 MG/DL (7-18); Calcium 7.5 MG/DL (8.5-10.1); Carbon Dioxide 18 MMOL/L (21-32); Chloride 116 MMOL/L (98-107); Osmolality,Calculated 301.8 MOS/KG (273-304); Potassium 4.2 MMOL/L (3.5-5.1); Sodium 144 MMOL/L (136-145); Total Protein 4.6 G/DL (6.4-8.2)
[2021-09-19 05:41] LABS: Glucose 33 MG/DL (74-106)
[2021-09-19] MEDS ORDERED: DEXTROSE 10% 250 ML BAG IV PRN (07:00)
[2021-09-19] MEDS: INSULIN LISPRO 100 UNIT/ML SUBCUT SCH ×4 (07:42→21:44)
[2021-09-19] MEDS: NICOTINE 21 MG/24 HR PATCH TRANSDERM SCH (08:22)
[2021-09-19] MEDS: BISACODYL 5 MG TABLET PO SCH (08:23)
[2021-09-19] MEDS: PANTOPRAZOLE 40 MG VIAL IV SCH ×2 (08:24→21:43)
[2021-09-19] MEDS: SUCRALFATE 1 GM/10 ML UDCUP PO SCH ×2 (08:24→15:47)
[2021-09-19] MEDS: ASCORBIC ACID 500 MG TABLET PO SCH (08:24)
[2021-09-19] MEDS: FERROUS SULFATE 325 MG TABLET PO SCH (08:24)
[2021-09-19] MEDS: TOPIRAMATE 25 MG TABLET PO SCH ×3 (08:24→21:43)
[2021-09-19] MEDS: SODIUM BICARB INJ 50 MEQ in DEXTROSE 5% NACL 0.45% 1,000 ML IV SCH ×2 (08:28→18:07)
[2021-09-19] MEDS: ATORVASTATIN 40 MG TABLET PO SCH (21:43)
[2021-09-20] MEDS: SODIUM BICARB INJ 50 MEQ in DEXTROSE 5% NACL 0.45% 1,000 ML IV SCH ×3 (05:45→22:03)
[2021-09-20] MEDS: INSULIN LISPRO 100 UNIT/ML SUBCUT SCH ×4 (08:33→21:51)
[2021-09-20 09:04] LABS: Calcium 7.7 MG/DL (8.5-10.1); Osmolality,Calculated 302.3 MOS/KG (273-304); Potassium 4.2 MMOL/L (3.5-5.1)
[2021-09-20] MEDS: FERROUS SULFATE 325 MG TABLET PO SCH (10:18)
[2021-09-20] MEDS: BISACODYL 5 MG TABLET PO SCH (10:18)
[2021-09-20] MEDS: ASCORBIC ACID 500 MG TABLET PO SCH (10:18)
[2021-09-20] MEDS: TOPIRAMATE 25 MG TABLET PO SCH ×3 (10:19→21:51)
[2021-09-20] MEDS: NICOTINE 21 MG/24 HR PATCH TRANSDERM SCH (10:22)
[2021-09-20] MEDS: PANTOPRAZOLE 40 MG VIAL IV SCH ×2 (10:24→21:50)
[2021-09-20] MEDS: SUCRALFATE 1 GM/10 ML UDCUP PO SCH ×2 (10:26→17:27)
[2021-09-20] MEDS: ATORVASTATIN 40 MG TABLET PO SCH (21:51)
[2021-09-21] MEDS: SODIUM BICARB INJ 50 MEQ in DEXTROSE 5% NACL 0.45% 1,000 ML IV SCH ×2 (03:12→13:30)
[2021-09-21 06:13] LABS: Basophils % 0.1 % (0.0-0.8); Eosinophils # 0.2 10*3/uL (0.0-0.87); Eosinophils % 1.9 % (0.00-10.9); Hematocrit 35.2 VOL% (42.0-52.0); Hemoglobin 11.1 GM/DL (14.0-18.0); Immature Granulocytes % 0.8 %; Immature Granulocytes Absolute 0.07 #; Lymphocytes # 0.9 10*3/uL (1.4-4.0); Lymphocytes % 10.3 % (21.2-54.2); Mean Corpuscular HGB Conc 31.5 GM/DL (32-36); Mean Corpuscular Volume 89.6 FL (87-102); Mean Platelet Volume 10.4 FL (9.6-12.0); Monocytes # 0.4 10*3/uL (0.11-0.8); Monocytes % 4.7 % (1.7-12.7); NRBC # 0.02 10*3/uL; Neutrophils % 82.2 % (38.7-73.9); Platelet Count 345 T/CUMM (130-400); Red Blood Count 3.93 MC/CUMM (3.8-5.5); Red Cell Distribution Width 15.8 % (9.3-17.3); White Blood Count 8.9 T/CUMM (4-12)
[2021-09-21 06:31] LABS: Calcium 7.3 MG/DL (8.5-10.1); Potassium 4.2 MMOL/L (3.5-5.1)
[2021-09-21] MEDS: INSULIN LISPRO 100 UNIT/ML SUBCUT SCH ×3 (08:08→16:37)
[2021-09-21] MEDS: SUCRALFATE 1 GM/10 ML UDCUP PO SCH ×2 (09:35→16:37)
[2021-09-21] MEDS: NICOTINE 21 MG/24 HR PATCH TRANSDERM SCH (09:35)
[2021-09-21] MEDS: BISACODYL 5 MG TABLET PO SCH (09:35)
[2021-09-21] MEDS: FERROUS SULFATE 325 MG TABLET PO SCH (09:35)
[2021-09-21] MEDS: ASCORBIC ACID 500 MG TABLET PO SCH (09:35)
[2021-09-21] MEDS: TOPIRAMATE 25 MG TABLET PO SCH ×2 (09:35→16:37)
[2021-09-21] MEDS: PANTOPRAZOLE 40 MG VIAL IV SCH (10:07)
[2021-09-21 12:43] VITALS: BP 125/80
== END 2021-09-21 17:46 | DRG 330 ==
LOC: N.ED 06:40 → SUATTDRO 10:22 → N.EDINP 10:22 → N.3E 14:25
PROVIDERS: ADMIT Internal Medicine; ATTEND Internal Medicine

== ENCOUNTER 2021-11-13 06:40 | Inpatient (IN) ==
[2021-11-13] MEDS ORDERED: ONDANSETRON 4 MG/2 ML VIAL IV STA (07:15)
[2021-11-13] MEDS ORDERED: PANTOPRAZOLE 40 MG VIAL IV STA (07:15)
[2021-11-13] MEDS ORDERED: HYDROmorphone 1 MG/1 ML SYRINGE IV STA (07:15)
[2021-11-13 07:32] LABS: Basophils # 0.1 10*3/uL (0.0-0.2); Basophils % 0.5 % (0.0-0.8); Eosinophils # 0.1 10*3/uL (0.0-0.87); Eosinophils % 0.8 % (0.00-10.9); Hematocrit 35.1 VOL% (42.0-52.0); Hemoglobin 10.9 GM/DL (14.0-18.0); Immature Granulocytes % 0.5 %; Immature Granulocytes Absolute 0.09 #; Lymphocytes # 1.1 10*3/uL (1.4-4.0); Lymphocytes % 6.4 % (21.2-54.2); Mean Corpuscular HGB Conc 31.1 GM/DL (32-36); Mean Platelet Volume 9.4 FL (9.6-12.0); Monocytes # 0.4 10*3/uL (0.11-0.8); Monocytes % 2.4 % (1.7-12.7); Neutrophils % 89.4 % (38.7-73.9); Platelet Count 442 T/CUMM (130-400); Red Cell Distribution Width 16.9 % (9.3-17.3); White Blood Count 16.8 T/CUMM (4-12)
[2021-11-13 07:59] LABS: Alanine Aminotransferase 18 U/L (16-61); Albumin 2.6 G/DL (3.4-5.0); Alkaline Phosphatase 91 U/L (45-117); Aspartate Amino Transferase 18 U/L (0-37); Bilirubin,Total < 0.39 MG/DL (0.20-1.00); Blood Urea Nitrogen 77 MG/DL (7-18); Calcium 8.5 MG/DL (8.5-10.1); Carbon Dioxide 22 MMOL/L (21-32); Chloride 113 MMOL/L (98-107); Glucose 133 MG/DL (74-106); Osmolality,Calculated 312.7 MOS/KG (273-304); Potassium 4.4 MMOL/L (3.5-5.1); Sodium 145 MMOL/L (136-145); Total Protein 6.8 G/DL (6.4-8.2)
[2021-11-13 09:29] LABS: INR 1.1; PT Patient Result 11.6 SECS (10.5-12.0); Partial Thromboplastin Time 31.9 SECS (23.7-32.9)
[2021-11-13 09:47] LABS: Bilirubin,Urine Negative (Negative); Blood, Urine Negative (Negative); Glucose,Urine (UA) Negative (Negative); Ketones,Urine Negative (Negative); Nitrite,Urine Negative (Negative); Protein,Urine 100 mg/dL (Negative); RBC,Urine 4 /HPF (0-4); Squamous Epithelial Cell,Urine Occasional /HPF (0-10); Urine Appearance Clear (Clear); Urine Color Yellow (Yellow); Urine Urobilinogen 0.2 eU/dL (<2.0)
[2021-11-13] MEDS ORDERED: GLUCAGON 1 MG VIAL IM PRN (09:53)
[2021-11-13] MEDS ORDERED: DEXTROSE 10% 250 ML BAG IV PRN (09:53)
[2021-11-13 10:35] LABS: Hepatitis B Core IgM Quant 0.13 Index; Hepatitis B Surface Ag Quant 0.16 Index; Hepatitis B Surface Ag Result Non-Reactive (NonReactive); Hepatitis C Virus Ab Quant 0.22 Index; Hepatitis C Virus Ab Result Non-Reactive (NonReactive)
[2021-11-13] MEDS: hydrALAZINE 20 MG/1 ML VIAL IV PRN (11:18)
[2021-11-13 11:54] LABS: Hematocrit 31.2 VOL% (42.0-52.0); Hemoglobin 9.7 GM/DL (14.0-18.0)
[2021-11-13] MEDS: INSULIN LISPRO 100 UNIT/ML SUBCUT SCH ×3 (12:00→21:10)
[2021-11-13] MEDS: CALCIUM CARBONATE CHEW 500 MG TABLET PO PRN ×2 (13:03→19:30)
[2021-11-13 14:16] LABS: Hemoglobin 9.4 GM/DL (14.0-18.0)
[2021-11-13] MEDS: ISOSORBIDE MONONITRATE 30 MG TABLET PO SCH (15:54)
[2021-11-13] MEDS: cefTRIAXone 1,000 MG in SODIUM CHLORIDE 0.9% 100 ML IV SCH (15:54)
[2021-11-13 18:51] LABS: Hematocrit 28.5 VOL% (42.0-52.0); Hemoglobin 8.8 GM/DL (14.0-18.0)
[2021-11-13] MEDS: ATORVASTATIN 40 MG TABLET PO SCH (21:10)
[2021-11-13] MEDS: TAMSULOSIN 0.4 MG CAPSULE PO SCH (21:10)
[2021-11-13] MEDS: carvediloL 25 MG TABLET PO SCH (21:10)
[2021-11-13] MEDS: PANTOPRAZOLE 40 MG VIAL IV SCH (21:18)
[2021-11-14 00:53] LABS: Hematocrit 26.7 VOL% (42.0-52.0); Hemoglobin 8.3 GM/DL (14.0-18.0)
[2021-11-14 04:41] LABS: Basophils # 0.1 10*3/uL (0.0-0.2); Basophils % 0.5 % (0.0-0.8); Eosinophils # 0.3 10*3/uL (0.0-0.87); Eosinophils % 2.3 % (0.00-10.9); Hematocrit 26.2 VOL% (42.0-52.0); Hemoglobin 7.8 GM/DL (14.0-18.0); Immature Granulocytes % 0.6 %; Immature Granulocytes Absolute 0.09 #; Lymphocytes # 1.5 10*3/uL (1.4-4.0); Lymphocytes % 10.2 % (21.2-54.2); Mean Corpuscular HGB Conc 29.8 GM/DL (32-36); Mean Corpuscular Volume 91.6 FL (87-102); Mean Platelet Volume 9.9 FL (9.6-12.0); Monocytes # 0.7 10*3/uL (0.11-0.8); Monocytes % 4.7 % (1.7-12.7); Neutrophils % 81.7 % (38.7-73.9); Platelet Count 387 T/CUMM (130-400); Red Blood Count 2.86 MC/CUMM (3.8-5.5); Red Cell Distribution Width 16.7 % (9.3-17.3)
[2021-11-14 05:00] LABS: Calcium 7.8 MG/DL (8.5-10.1); Osmolality,Calculated 315.3 MOS/KG (273-304); Potassium 4.3 MMOL/L (3.5-5.1)
[2021-11-14 05:01] LABS: Alanine Aminotransferase 11 U/L (16-61); Alkaline Phosphatase 64 U/L (45-117); Aspartate Amino Transferase 9 U/L (0-37); Bilirubin,Total < 0.39 MG/DL (0.20-1.00); Blood Urea Nitrogen 75 MG/DL (7-18); Calcium 7.9 MG/DL (8.5-10.1); Carbon Dioxide 24 MMOL/L (21-32); Chloride 115 MMOL/L (98-107); Glucose 89 MG/DL (74-106); Osmolality,Calculated 310.6 MOS/KG (273-304); Potassium 4.2 MMOL/L (3.5-5.1); Sodium 146 MMOL/L (136-145); Total Protein 5.1 G/DL (6.4-8.2)
[2021-11-14] MEDS: INSULIN LISPRO 100 UNIT/ML SUBCUT SCH ×4 (08:12→21:52)
[2021-11-14] MEDS ORDERED: SODIUM CHLORIDE 0.9% 1,000 ML IV SCH (09:00)
[2021-11-14] MEDS ORDERED: propofoL 200 MG/20 ML VIAL IV ONE (11:13)
[2021-11-14] MEDS ORDERED: ETOMIDATE 20 MG/10 ML VIAL IV ONE (11:13)
[2021-11-14] MEDS ORDERED: LIDOCAINE 2% 5 ML VIAL ONE (11:13)
[2021-11-14 12:32] LABS: Hematocrit 26.2 VOL% (42.0-52.0); Hemoglobin 8.1 GM/DL (14.0-18.0)
[2021-11-14] MEDS: FERROUS SULFATE 325 MG TABLET PO SCH (12:58)
[2021-11-14] MEDS: cefTRIAXone 1,000 MG in SODIUM CHLORIDE 0.9% 100 ML IV SCH (12:58)
[2021-11-14] MEDS: ASCORBIC ACID 500 MG TABLET PO SCH (12:58)
[2021-11-14] MEDS: BUMETANIDE 1 MG TABLET PO SCH (12:58)
[2021-11-14] MEDS: BISACODYL 5 MG TABLET PO SCH (12:59)
[2021-11-14] MEDS: ISOSORBIDE MONONITRATE 30 MG TABLET PO SCH (12:59)
[2021-11-14] MEDS: carvediloL 25 MG TABLET PO SCH ×2 (12:59→21:44)
[2021-11-14] MEDS: CHOLECALCIFEROL 1,000 UNIT TABLET PO SCH (12:59)
[2021-11-14] MEDS: PANTOPRAZOLE 40 MG VIAL IV SCH ×2 (13:04→21:45)
[2021-11-14] MEDS: ONDANSETRON 4 MG/2 ML VIAL IV PRN (14:24)
[2021-11-14] MEDS ORDERED: TISSUE ADHESIVE 1 EACH APPLICATOR TOP ONE (14:43)
[2021-11-14] MEDS: CALCIUM CARBONATE CHEW 500 MG TABLET PO PRN ×2 (15:04→21:53)
[2021-11-14 15:14] LABS: Total Protein,Peritoneal Fluid 3.1 G/DL
[2021-11-14 15:32] LABS: Neutrophils,Peritoneal Fluid 37 %
[2021-11-14 15:33] LABS: RBC,Peritoneal Fluid 47 T/CUMM
[2021-11-14 15:58] LABS: Hematocrit 25.3 VOL% (42.0-52.0); Hemoglobin 7.8 GM/DL (14.0-18.0)
[2021-11-14] MEDS: ATORVASTATIN 40 MG TABLET PO SCH (21:45)
[2021-11-14] MEDS: TAMSULOSIN 0.4 MG CAPSULE PO SCH (21:46)
[2021-11-15 05:19] LABS: Basophils # 0.1 10*3/uL (0.0-0.2); Basophils % 0.7 % (0.0-0.8); Eosinophils # 0.5 10*3/uL (0.0-0.87); Hematocrit 25.4 VOL% (42.0-52.0); Hemoglobin 7.7 GM/DL (14.0-18.0); Immature Granulocytes % 0.4 %; Immature Granulocytes Absolute 0.05 #; Lymphocytes # 1.8 10*3/uL (1.4-4.0); Lymphocytes % 15.4 % (21.2-54.2); Mean Corpuscular HGB Conc 30.3 GM/DL (32-36); Mean Platelet Volume 9.8 FL (9.6-12.0); Monocytes # 0.7 10*3/uL (0.11-0.8); Monocytes % 5.6 % (1.7-12.7); Neutrophils % 73.9 % (38.7-73.9); Platelet Count 343 T/CUMM (130-400); Red Blood Count 2.79 MC/CUMM (3.8-5.5); Red Cell Distribution Width 16.3 % (9.3-17.3); White Blood Count 11.9 T/CUMM (4-12)
[2021-11-15 05:42] LABS: Alanine Aminotransferase 11 U/L (16-61); Albumin 1.8 G/DL (3.4-5.0); Alkaline Phosphatase 64 U/L (45-117); Aspartate Amino Transferase 9 U/L (0-37); Bilirubin,Direct < 0.100 MG/DL (0.0-0.20); Bilirubin,Indirect 0.3 MG/DL (0.0-1.0); Bilirubin,Total < 0.39 MG/DL (0.20-1.00); Blood Urea Nitrogen 78 MG/DL (7-18); Calcium 7.6 MG/DL (8.5-10.1); Carbon Dioxide 22 MMOL/L (21-32); Chloride 113 MMOL/L (98-107); Glucose 88 MG/DL (74-106); Osmolality,Calculated 309.7 MOS/KG (273-304); Potassium 4.2 MMOL/L (3.5-5.1); Sodium 145 MMOL/L (136-145); Total Protein 4.8 G/DL (6.4-8.2)
[2021-11-15] MEDS: INSULIN LISPRO 100 UNIT/ML SUBCUT SCH ×4 (07:57→23:08)
[2021-11-15] MEDS: cefTRIAXone 1,000 MG in SODIUM CHLORIDE 0.9% 100 ML IV SCH (09:57)
[2021-11-15] MEDS: PANTOPRAZOLE 40 MG VIAL IV SCH ×2 (09:57→22:30)
[2021-11-15] MEDS: ISOSORBIDE MONONITRATE 30 MG TABLET PO SCH (10:03)
[2021-11-15] MEDS: BUMETANIDE 1 MG TABLET PO SCH (10:03)
[2021-11-15] MEDS: CHOLECALCIFEROL 1,000 UNIT TABLET PO SCH (10:04)
[2021-11-15] MEDS: ASCORBIC ACID 500 MG TABLET PO SCH (10:04)
[2021-11-15] MEDS: BISACODYL 5 MG TABLET PO SCH (10:04)
[2021-11-15] MEDS: FERROUS SULFATE 325 MG TABLET PO SCH (10:04)
[2021-11-15] MEDS: carvediloL 25 MG TABLET PO SCH ×2 (10:04→22:33)
[2021-11-15] MEDS: ALUMINUM/MAGNES/SIMETH MAX STR 30 ML UDCUP PO PRN (10:51)
[2021-11-15] MEDS: CALCIUM CARBONATE CHEW 500 MG TABLET PO PRN (10:53)
[2021-11-15] MEDS: SUCRALFATE 1 GM/10 ML UDCUP PO SCH ×3 (12:53→22:33)
[2021-11-15] MEDS ORDERED: ALBUMIN 25% 50 GM/200 ML VIAL IV ONE (13:03)
[2021-11-15] MEDS ORDERED: ALBUMIN IV ONE (15:00)
[2021-11-15] MEDS: CEFUROXIME IV SCH (17:44)
[2021-11-15] MEDS: SODIUM CHLORIDE 0.9% IV SCH (17:44)
[2021-11-15] MEDS: TAMSULOSIN 0.4 MG CAPSULE PO SCH (22:32)
[2021-11-15] MEDS: ATORVASTATIN 40 MG TABLET PO SCH (22:33)
[2021-11-16 00:43] LABS: Protein/Creatinine Ratio,Urine 0.5 RATIO
[2021-11-16] MEDS: SODIUM CHLORIDE 0.9% IV SCH ×3 (01:39→17:54)
[2021-11-16] MEDS: CEFUROXIME IV SCH ×3 (01:39→17:54)
[2021-11-16 06:33] LABS: Total Protein 4.6 G/DL (6.4-8.2)
[2021-11-16 08:24] LABS: Total Protein (Chem) 4.6 G/DL (6.4-8.3)
[2021-11-16 08:32] LABS: Albumin (SPE) 2.7 G/DL (3.2-5.3); Albumin (SPE) Rel % 59.6 %; Alpha 1 (SPE) 0.2 G/DL (0.1-0.4); Alpha 1 (SPE) Rel % 4.3 %; Alpha 2 (SPE) 0.6 G/DL (0.4-1.0); Alpha 2 (SPE) Rel % 12.2 %; Beta (SPE) 0.6 G/DL (0.5-1.1); Beta (SPE) Rel % 12.5 %; Gamma (SPE) 0.5 G/DL (0.7-1.7); Gamma (SPE) Rel % 11.4 %
[2021-11-16] MEDS ORDERED: DIAZEPAM 5 MG TABLET PO ONE (09:00)
[2021-11-16] MEDS: carvediloL 25 MG TABLET PO SCH ×2 (09:00→22:38)
[2021-11-16] MEDS: INSULIN LISPRO 100 UNIT/ML SUBCUT SCH ×4 (10:12→22:24)
[2021-11-16] MEDS: SUCRALFATE 1 GM/10 ML UDCUP PO SCH ×4 (10:13→22:38)
[2021-11-16] MEDS ORDERED: DEXTROSE 50% 25 GM/50 ML VIAL IV PRN (12:07)
[2021-11-16] MEDS ORDERED: GLUCAGON 1 MG VIAL IM PRN (12:07)
[2021-11-16] MEDS: BUMETANIDE 1 MG TABLET PO SCH (13:00)
[2021-11-16] MEDS: BISACODYL 5 MG TABLET PO SCH (13:00)
[2021-11-16] MEDS: FERROUS SULFATE 325 MG TABLET PO SCH (13:00)
[2021-11-16] MEDS: ASCORBIC ACID 500 MG TABLET PO SCH (13:01)
[2021-11-16] MEDS: ISOSORBIDE MONONITRATE 30 MG TABLET PO SCH (13:01)
[2021-11-16] MEDS: CHOLECALCIFEROL 1,000 UNIT TABLET PO SCH (13:01)
[2021-11-16] MEDS: PANTOPRAZOLE 40 MG VIAL IV SCH ×2 (13:05→22:28)
[2021-11-16] MEDS: CALCIUM CARBONATE CHEW 500 MG TABLET PO PRN (13:21)
[2021-11-16] MEDS: ALUMINUM/MAGNES/SIMETH MAX STR 30 ML UDCUP PO PRN (14:03)
[2021-11-16] MEDS ORDERED: ALUM/MAG/SIMETH/LIDO VISC 1:1 30 ML BOTTLE PO ONE (16:00)
[2021-11-16] MEDS: TAMSULOSIN 0.4 MG CAPSULE PO SCH (22:38)
[2021-11-16] MEDS: ATORVASTATIN 40 MG TABLET PO SCH (22:39)
[2021-11-17] MEDS: CEFUROXIME IV SCH (01:51)
[2021-11-17] MEDS: SODIUM CHLORIDE 0.9% IV SCH (01:51)
[2021-11-17 06:00] LABS: Basophils # 0.1 10*3/uL (0.0-0.2); Basophils % 0.6 % (0.0-0.8); Eosinophils # 0.5 10*3/uL (0.0-0.87); Eosinophils % 4.6 % (0.00-10.9); Hematocrit 23.9 VOL% (42.0-52.0); Hemoglobin 7.5 GM/DL (14.0-18.0); Immature Granulocytes % 0.5 %; Immature Granulocytes Absolute 0.05 #; Lymphocytes # 1.4 10*3/uL (1.4-4.0); Lymphocytes % 13.7 % (21.2-54.2); Mean Corpuscular HGB Conc 31.4 GM/DL (32-36); Mean Corpuscular Volume 90.2 FL (87-102); Monocytes # 0.6 10*3/uL (0.11-0.8); Monocytes % 5.8 % (1.7-12.7); Neutrophils % 74.8 % (38.7-73.9); Platelet Count 380 T/CUMM (130-400); Red Blood Count 2.65 MC/CUMM (3.8-5.5); Red Cell Distribution Width 15.8 % (9.3-17.3); White Blood Count 10.2 T/CUMM (4-12)
[2021-11-17 06:11] LABS: Calcium 7.1 MG/DL (8.5-10.1); Osmolality,Calculated 306.1 MOS/KG (273-304)
[2021-11-17] MEDS: PANTOPRAZOLE 40 MG VIAL IV SCH ×2 (08:59→21:03)
[2021-11-17] MEDS: SUCRALFATE 1 GM/10 ML UDCUP PO SCH ×4 (08:59→21:11)
[2021-11-17] MEDS: BUMETANIDE 1 MG TABLET PO SCH (08:59)
[2021-11-17] MEDS: ISOSORBIDE MONONITRATE 30 MG TABLET PO SCH (08:59)
[2021-11-17] MEDS: CHOLECALCIFEROL 1,000 UNIT TABLET PO SCH (08:59)
[2021-11-17] MEDS: BISACODYL 5 MG TABLET PO SCH (08:59)
[2021-11-17] MEDS: carvediloL 25 MG TABLET PO SCH ×2 (08:59→21:05)
[2021-11-17] MEDS: ASCORBIC ACID 500 MG TABLET PO SCH (08:59)
[2021-11-17] MEDS: FERROUS SULFATE 325 MG TABLET PO SCH (08:59)
[2021-11-17] MEDS: CEFUROXIME INJ 1,500 MG in SODIUM CHLORIDE 0.9% 100 ML IV SCH ×2 (09:05→21:01)
[2021-11-17] MEDS: CALCIUM CARBONATE CHEW 500 MG TABLET PO PRN ×2 (09:05→21:13)
[2021-11-17] MEDS: ALUMINUM/MAGNES/SIMETH MAX STR 30 ML UDCUP PO PRN ×2 (09:09→21:13)
[2021-11-17] MEDS: INSULIN LISPRO 100 UNIT/ML SUBCUT SCH ×4 (09:12→21:04)
[2021-11-17] MEDS ORDERED: ALBUMIN 25% 50 GM/200 ML VIAL IV ONE (16:00)
[2021-11-17] MEDS ORDERED: ALBUMIN 25% 25 GM/100 ML VIAL IV ONE (17:00)
[2021-11-17] MEDS: ATORVASTATIN 40 MG TABLET PO SCH (21:05)
[2021-11-17] MEDS: TAMSULOSIN 0.4 MG CAPSULE PO SCH (21:05)
[2021-11-18] MEDS: CEFUROXIME INJ 1,500 MG in SODIUM CHLORIDE 0.9% 100 ML IV SCH ×3 (02:08→16:18)
[2021-11-18 06:05] LABS: Basophils % 0.4 % (0.0-0.8); Eosinophils # 0.5 10*3/uL (0.0-0.87); Eosinophils % 5.7 % (0.00-10.9); Hemoglobin 6.9 GM/DL (14.0-18.0); Immature Granulocytes % 0.4 %; Immature Granulocytes Absolute 0.04 #; Lymphocytes # 1.3 10*3/uL (1.4-4.0); Lymphocytes % 13.6 % (21.2-54.2); Mean Corpuscular Volume 90.9 FL (87-102); Mean Platelet Volume 9.9 FL (9.6-12.0); Monocytes # 0.6 10*3/uL (0.11-0.8); Monocytes % 6.2 % (1.7-12.7); Neutrophils % 73.7 % (38.7-73.9); Platelet Count 336 T/CUMM (130-400); Red Blood Count 2.53 MC/CUMM (3.8-5.5); Red Cell Distribution Width 15.9 % (9.3-17.3); White Blood Count 9.4 T/CUMM (4-12)
[2021-11-18 06:28] LABS: Calcium 7.4 MG/DL (8.5-10.1); Osmolality,Calculated 306.8 MOS/KG (273-304); Potassium 3.9 MMOL/L (3.5-5.1)
[2021-11-18] MEDS: INSULIN LISPRO 100 UNIT/ML SUBCUT SCH ×4 (08:41→21:27)
[2021-11-18] MEDS: BISACODYL 5 MG TABLET PO SCH (09:53)
[2021-11-18] MEDS: ASCORBIC ACID 500 MG TABLET PO SCH (09:54)
[2021-11-18] MEDS: SUCRALFATE 1 GM/10 ML UDCUP PO SCH ×4 (09:54→21:27)
[2021-11-18] MEDS: ISOSORBIDE MONONITRATE 30 MG TABLET PO SCH (09:54)
[2021-11-18] MEDS: FERROUS SULFATE 325 MG TABLET PO SCH (09:54)
[2021-11-18] MEDS: carvediloL 25 MG TABLET PO SCH ×2 (09:54→21:27)
[2021-11-18] MEDS: CHOLECALCIFEROL 1,000 UNIT TABLET PO SCH (09:54)
[2021-11-18] MEDS: BUMETANIDE 1 MG TABLET PO SCH (09:54)
[2021-11-18] MEDS: PANTOPRAZOLE 40 MG VIAL IV SCH ×2 (09:55→21:27)
[2021-11-18] MEDS: CALCIUM CARBONATE CHEW 500 MG TABLET PO PRN ×2 (11:00→19:13)
[2021-11-18] MEDS: ALUMINUM/MAGNES/SIMETH MAX STR 30 ML UDCUP PO PRN ×2 (11:00→19:13)
[2021-11-18] MEDS: TAMSULOSIN 0.4 MG CAPSULE PO SCH (21:27)
[2021-11-18] MEDS: ATORVASTATIN 40 MG TABLET PO SCH (21:27)
[2021-11-18] MEDS: NYSTATIN POWDER 15 GM BOTTLE TOP SCH (21:27)
[2021-11-19] MEDS: CEFUROXIME INJ 1,500 MG in SODIUM CHLORIDE 0.9% 100 ML IV SCH ×3 (01:12→16:07)
[2021-11-19] MEDS: ACETAMINOPHEN 325 MG TABLET PO PRN (04:58)
[2021-11-19 06:08] LABS: Basophils # 0.1 10*3/uL (0.0-0.2); Basophils % 0.7 % (0.0-0.8); Eosinophils # 0.7 10*3/uL (0.0-0.87); Eosinophils % 6.3 % (0.00-10.9); Hematocrit 23.5 VOL% (42.0-52.0); Hemoglobin 7.3 GM/DL (14.0-18.0); Immature Granulocytes % 0.4 %; Immature Granulocytes Absolute 0.05 #; Lymphocytes # 1.5 10*3/uL (1.4-4.0); Mean Corpuscular HGB Conc 31.1 GM/DL (32-36); Mean Corpuscular Volume 90.7 FL (87-102); Mean Platelet Volume 10.1 FL (9.6-12.0); Monocytes # 0.8 10*3/uL (0.11-0.8); Monocytes % 6.7 % (1.7-12.7); Neutrophils % 72.9 % (38.7-73.9); Platelet Count 370 T/CUMM (130-400); Red Blood Count 2.59 MC/CUMM (3.8-5.5); Red Cell Distribution Width 16.3 % (9.3-17.3); White Blood Count 11.3 T/CUMM (4-12)
[2021-11-19 06:25] LABS: Calcium 7.9 MG/DL (8.5-10.1); Osmolality,Calculated 309.7 MOS/KG (273-304)
[2021-11-19] MEDS: SUCRALFATE 1 GM/10 ML UDCUP PO SCH ×5 (09:30→21:49)
[2021-11-19] MEDS: DOXYCYCLINE HYCLATE 100 MG CAPSULE PO SCH ×2 (09:59→21:49)
[2021-11-19] MEDS: ASCORBIC ACID 500 MG TABLET PO SCH (09:59)
[2021-11-19] MEDS: ISOSORBIDE MONONITRATE 30 MG TABLET PO SCH (09:59)
[2021-11-19] MEDS: carvediloL 25 MG TABLET PO SCH ×2 (09:59→21:49)
[2021-11-19] MEDS: BISACODYL 5 MG TABLET PO SCH (09:59)
[2021-11-19] MEDS: NYSTATIN POWDER 15 GM BOTTLE TOP SCH ×2 (10:00→21:49)
[2021-11-19] MEDS: PANTOPRAZOLE 40 MG VIAL IV SCH ×2 (10:00→21:49)
[2021-11-19] MEDS: FERROUS SULFATE 325 MG TABLET PO SCH (10:00)
[2021-11-19] MEDS: CHOLECALCIFEROL 1,000 UNIT TABLET PO SCH (10:00)
[2021-11-19] MEDS: BUMETANIDE 1 MG TABLET PO SCH (10:11)
[2021-11-19] MEDS: INSULIN LISPRO 100 UNIT/ML SUBCUT SCH ×4 (10:12→21:49)
[2021-11-19] MEDS ORDERED: oxyCODONE IR 5 MG TABLET PO PRN (13:22)
[2021-11-19] MEDS: ATORVASTATIN 40 MG TABLET PO SCH (21:49)
[2021-11-19] MEDS: TAMSULOSIN 0.4 MG CAPSULE PO SCH (21:49)
[2021-11-20] MEDS: CEFUROXIME INJ 1,500 MG in SODIUM CHLORIDE 0.9% 100 ML IV SCH ×3 (01:19→17:49)
[2021-11-20 06:17] LABS: Basophils # 0.1 10*3/uL (0.0-0.2); Basophils % 0.4 % (0.0-0.8); Eosinophils # 0.7 10*3/uL (0.0-0.87); Eosinophils % 5.7 % (0.00-10.9); Hematocrit 23.3 VOL% (42.0-52.0); Hemoglobin 7.1 GM/DL (14.0-18.0); Immature Granulocytes % 0.5 %; Immature Granulocytes Absolute 0.06 #; Lymphocytes # 1.5 10*3/uL (1.4-4.0); Lymphocytes % 12.4 % (21.2-54.2); Mean Corpuscular HGB Conc 30.5 GM/DL (32-36); Mean Corpuscular Volume 92.1 FL (87-102); Mean Platelet Volume 10.3 FL (9.6-12.0); Monocytes # 0.7 10*3/uL (0.11-0.8); Monocytes % 6.3 % (1.7-12.7); Neutrophils % 74.7 % (38.7-73.9); Platelet Count 361 T/CUMM (130-400); Red Blood Count 2.53 MC/CUMM (3.8-5.5); Red Cell Distribution Width 16.4 % (9.3-17.3); White Blood Count 11.7 T/CUMM (4-12)
[2021-11-20 06:38] LABS: Calcium 7.5 MG/DL (8.5-10.1); Osmolality,Calculated 309.7 MOS/KG (273-304); Potassium 4.1 MMOL/L (3.5-5.1)
[2021-11-20 06:50] LABS: Alanine Aminotransferase 12 U/L (16-61); Albumin 1.8 G/DL (3.4-5.0); Alkaline Phosphatase 64 U/L (45-117); Aspartate Amino Transferase 13 U/L (0-37); Bilirubin,Total < 0.39 MG/DL (0.20-1.00); Blood Urea Nitrogen 73 MG/DL (7-18); Calcium 7.5 MG/DL (8.5-10.1); Carbon Dioxide 20 MMOL/L (21-32); Chloride 113 MMOL/L (98-107); Glucose 103 MG/DL (74-106); Potassium 4.5 MMOL/L (3.5-5.1); Sodium 143 MMOL/L (136-145); Total Protein 4.8 G/DL (6.4-8.2)
[2021-11-20] MEDS: INSULIN LISPRO 100 UNIT/ML SUBCUT SCH ×4 (07:25→20:39)
[2021-11-20] MEDS: NYSTATIN POWDER 15 GM BOTTLE TOP SCH ×2 (09:25→20:39)
[2021-11-20] MEDS: SUCRALFATE 1 GM/10 ML UDCUP PO SCH ×4 (09:27→20:38)
[2021-11-20] MEDS: DOXYCYCLINE HYCLATE 100 MG CAPSULE PO SCH ×2 (09:29→20:42)
[2021-11-20] MEDS: PANTOPRAZOLE 40 MG VIAL IV SCH (09:29)
[2021-11-20] MEDS: FERROUS SULFATE 325 MG TABLET PO SCH (09:30)
[2021-11-20] MEDS: BUMETANIDE 1 MG TABLET PO SCH (09:30)
[2021-11-20] MEDS: BISACODYL 5 MG TABLET PO SCH (09:30)
[2021-11-20] MEDS: ASCORBIC ACID 500 MG TABLET PO SCH (09:30)
[2021-11-20] MEDS: CHOLECALCIFEROL 1,000 UNIT TABLET PO SCH (09:30)
[2021-11-20] MEDS: ISOSORBIDE MONONITRATE 30 MG TABLET PO SCH (09:32)
[2021-11-20] MEDS: carvediloL 25 MG TABLET PO SCH ×2 (09:32→20:38)
[2021-11-20] MEDS: CALCIUM CARBONATE CHEW 500 MG TABLET PO PRN (16:49)
[2021-11-20] MEDS: PANTOPRAZOLE 40 MG TABLET PO SCH (20:37)
[2021-11-20] MEDS: ACETAMINOPHEN 325 MG TABLET PO PRN (20:38)
[2021-11-20] MEDS: TAMSULOSIN 0.4 MG CAPSULE PO SCH (20:38)
[2021-11-20] MEDS: ATORVASTATIN 40 MG TABLET PO SCH (20:42)
[2021-11-21] MEDS: CEFUROXIME INJ 1,500 MG in SODIUM CHLORIDE 0.9% 100 ML IV SCH ×3 (01:03→17:30)
[2021-11-21 05:40] LABS: Basophils # 0.1 10*3/uL (0.0-0.2); Basophils % 0.6 % (0.0-0.8); Eosinophils # 0.7 10*3/uL (0.0-0.87); Eosinophils % 6.1 % (0.00-10.9); Hematocrit 23.7 VOL% (42.0-52.0); Hemoglobin 7.2 GM/DL (14.0-18.0); Immature Granulocytes % 0.8 %; Immature Granulocytes Absolute 0.09 #; Lymphocytes # 1.4 10*3/uL (1.4-4.0); Lymphocytes % 13.2 % (21.2-54.2); Mean Corpuscular HGB Conc 30.4 GM/DL (32-36); Mean Corpuscular Volume 91.5 FL (87-102); Mean Platelet Volume 10.2 FL (9.6-12.0); Monocytes # 0.8 10*3/uL (0.11-0.8); Monocytes % 7.6 % (1.7-12.7); Neutrophils % 71.7 % (38.7-73.9); Platelet Count 383 T/CUMM (130-400); Red Blood Count 2.59 MC/CUMM (3.8-5.5); Red Cell Distribution Width 16.6 % (9.3-17.3); White Blood Count 10.9 T/CUMM (4-12)
[2021-11-21 05:54] LABS: Calcium 7.6 MG/DL (8.5-10.1); Osmolality,Calculated 303.3 MOS/KG (273-304); Potassium 4.1 MMOL/L (3.5-5.1)
[2021-11-21 06:04] LABS: Phosphorous 1.9 MG/DL (2.5-4.9)
[2021-11-21] MEDS: INSULIN LISPRO 100 UNIT/ML SUBCUT SCH ×4 (08:03→20:53)
[2021-11-21] MEDS: SUCRALFATE 1 GM/10 ML UDCUP PO SCH ×4 (08:06→20:55)
[2021-11-21] MEDS: BUMETANIDE 1 MG TABLET PO SCH (08:36)
[2021-11-21] MEDS: DOXYCYCLINE HYCLATE 100 MG CAPSULE PO SCH ×2 (08:36→20:55)
[2021-11-21] MEDS: ASCORBIC ACID 500 MG TABLET PO SCH (08:36)
[2021-11-21] MEDS: ISOSORBIDE MONONITRATE 30 MG TABLET PO SCH (08:36)
[2021-11-21] MEDS: PANTOPRAZOLE 40 MG TABLET PO SCH ×2 (08:37→20:55)
[2021-11-21] MEDS: carvediloL 25 MG TABLET PO SCH ×2 (08:37→20:53)
[2021-11-21] MEDS: CHOLECALCIFEROL 1,000 UNIT TABLET PO SCH (08:37)
[2021-11-21] MEDS: BISACODYL 5 MG TABLET PO SCH (08:37)
[2021-11-21] MEDS: FERROUS SULFATE 325 MG TABLET PO SCH (08:37)
[2021-11-21] MEDS: NYSTATIN POWDER 15 GM BOTTLE TOP SCH ×2 (08:41→20:54)
[2021-11-21 10:21] LABS: Neutrophils,Peritoneal Fluid 67 %
[2021-11-21 10:24] LABS: RBC,Peritoneal Fluid 12119 T/CUMM
[2021-11-21] MEDS: CALCIUM CARBONATE CHEW 500 MG TABLET PO PRN (17:33)
[2021-11-21] MEDS: TAMSULOSIN 0.4 MG CAPSULE PO SCH (20:55)
[2021-11-21] MEDS: ATORVASTATIN 40 MG TABLET PO SCH (20:55)
[2021-11-22] MEDS: CEFUROXIME INJ 1,500 MG in SODIUM CHLORIDE 0.9% 100 ML IV SCH (00:35)
[2021-11-22 05:29] LABS: Basophils # 0.1 10*3/uL (0.0-0.2); Basophils % 0.6 % (0.0-0.8); Eosinophils # 0.6 10*3/uL (0.0-0.87); Eosinophils % 5.7 % (0.00-10.9); Hematocrit 22.7 VOL% (42.0-52.0); Hemoglobin 6.9 GM/DL (14.0-18.0); Immature Granulocytes % 0.8 %; Immature Granulocytes Absolute 0.08 #; Lymphocytes # 1.6 10*3/uL (1.4-4.0); Lymphocytes % 15.7 % (21.2-54.2); Mean Corpuscular HGB Conc 30.4 GM/DL (32-36); Mean Corpuscular Volume 91.5 FL (87-102); Mean Platelet Volume 10.2 FL (9.6-12.0); Monocytes # 0.9 10*3/uL (0.11-0.8); Monocytes % 8.6 % (1.7-12.7); Neutrophils % 68.6 % (38.7-73.9); Platelet Count 350 T/CUMM (130-400); Red Blood Count 2.48 MC/CUMM (3.8-5.5); Red Cell Distribution Width 16.6 % (9.3-17.3); White Blood Count 10.3 T/CUMM (4-12)
[2021-11-22 05:53] LABS: Calcium 7.4 MG/DL (8.5-10.1); Osmolality,Calculated 305.3 MOS/KG (273-304); Potassium 4.2 MMOL/L (3.5-5.1)
[2021-11-22] MEDS: DOXYCYCLINE HYCLATE 100 MG CAPSULE PO SCH ×2 (09:26→21:20)
[2021-11-22] MEDS: PANTOPRAZOLE 40 MG TABLET PO SCH ×2 (09:27→21:21)
[2021-11-22] MEDS: ASCORBIC ACID 500 MG TABLET PO SCH (09:27)
[2021-11-22] MEDS: SUCRALFATE 1 GM/10 ML UDCUP PO SCH ×4 (09:27→21:21)
[2021-11-22] MEDS: BISACODYL 5 MG TABLET PO SCH (09:27)
[2021-11-22] MEDS: BUMETANIDE 1 MG TABLET PO SCH (09:27)
[2021-11-22] MEDS: FERROUS SULFATE 325 MG TABLET PO SCH (09:28)
[2021-11-22] MEDS: carvediloL 25 MG TABLET PO SCH ×2 (09:28→21:20)
[2021-11-22] MEDS: ISOSORBIDE MONONITRATE 30 MG TABLET PO SCH (09:28)
[2021-11-22] MEDS: CHOLECALCIFEROL 1,000 UNIT TABLET PO SCH (09:28)
[2021-11-22] MEDS: NYSTATIN POWDER 15 GM BOTTLE TOP SCH ×2 (09:52→21:22)
[2021-11-22] MEDS: INSULIN LISPRO 100 UNIT/ML SUBCUT SCH ×4 (09:56→21:26)
[2021-11-22] MEDS: ATORVASTATIN 40 MG TABLET PO SCH (21:20)
[2021-11-22] MEDS: TAMSULOSIN 0.4 MG CAPSULE PO SCH (21:20)
[2021-11-23 06:00] LABS: Basophils # 0.1 10*3/uL (0.0-0.2); Basophils % 0.5 % (0.0-0.8); Eosinophils # 0.6 10*3/uL (0.0-0.87); Eosinophils % 4.9 % (0.00-10.9); Hematocrit 22.8 VOL% (42.0-52.0); Hemoglobin 6.8 GM/DL (14.0-18.0); Immature Granulocytes % 1.1 %; Immature Granulocytes Absolute 0.12 #; Lymphocytes # 1.7 10*3/uL (1.4-4.0); Lymphocytes % 15.4 % (21.2-54.2); Mean Corpuscular HGB Conc 29.8 GM/DL (32-36); Mean Corpuscular Volume 91.9 FL (87-102); Mean Platelet Volume 10.2 FL (9.6-12.0); Monocytes % 9.1 % (1.7-12.7); Platelet Count 396 T/CUMM (130-400); Red Blood Count 2.48 MC/CUMM (3.8-5.5); Red Cell Distribution Width 16.8 % (9.3-17.3); White Blood Count 11.3 T/CUMM (4-12)
[2021-11-23 06:21] LABS: Calcium 7.7 MG/DL (8.5-10.1); Osmolality,Calculated 306.3 MOS/KG (273-304); Osmolality,Calculated 310.1 MOS/KG (273-304); Phosphorous 1.9 MG/DL (2.5-4.9); Potassium 4.4 MMOL/L (3.5-5.1); Potassium 4.7 MMOL/L (3.5-5.1)
[2021-11-23] MEDS: INSULIN LISPRO 100 UNIT/ML SUBCUT SCH ×4 (07:59→23:28)
[2021-11-23] MEDS: DOXYCYCLINE HYCLATE 100 MG CAPSULE PO SCH ×2 (08:55→20:54)
[2021-11-23] MEDS: ASCORBIC ACID 500 MG TABLET PO SCH (08:56)
[2021-11-23] MEDS: BUMETANIDE 1 MG TABLET PO SCH (08:56)
[2021-11-23] MEDS: PANTOPRAZOLE 40 MG TABLET PO SCH ×2 (08:56→20:55)
[2021-11-23] MEDS: carvediloL 25 MG TABLET PO SCH ×2 (08:56→20:55)
[2021-11-23] MEDS: FERROUS SULFATE 325 MG TABLET PO SCH (08:56)
[2021-11-23] MEDS: ISOSORBIDE MONONITRATE 30 MG TABLET PO SCH (08:56)
[2021-11-23] MEDS: BISACODYL 5 MG TABLET PO SCH (08:56)
[2021-11-23] MEDS: CHOLECALCIFEROL 1,000 UNIT TABLET PO SCH (08:56)
[2021-11-23] MEDS: SUCRALFATE 1 GM/10 ML UDCUP PO SCH ×4 (08:57→20:55)
[2021-11-23] MEDS: NYSTATIN POWDER 15 GM BOTTLE TOP SCH ×2 (08:57→20:58)
[2021-11-23] MEDS ORDERED: SODIUM CHLORIDE 0.9% 1,000 ML IV PRN (09:28)
[2021-11-23] MEDS: POTASSIUM PHOS/SOD PHOS POWDER 250 MG PACK PO SCH ×2 (11:29→15:50)
[2021-11-23] MEDS ORDERED: FUROSEMIDE 20 MG/2 ML VIAL IV ONE ×2 (13:00→15:00)
[2021-11-23 15:03] LABS: % Iron Saturation 20.6 % (18-50)
[2021-11-23 15:22] LABS: Folate 7.17 NG/ML (5.38-24.0)
[2021-11-23 19:55] LABS: Hematocrit 28.6 VOL% (42.0-52.0); Hemoglobin 8.8 GM/DL (14.0-18.0)
[2021-11-23] MEDS: ATORVASTATIN 40 MG TABLET PO SCH (20:54)
[2021-11-23] MEDS: TAMSULOSIN 0.4 MG CAPSULE PO SCH (20:55)
[2021-11-24 06:07] LABS: Basophils # 0.1 10*3/uL (0.0-0.2); Basophils % 0.8 % (0.0-0.8); Eosinophils # 0.6 10*3/uL (0.0-0.87); Eosinophils % 5.5 % (0.00-10.9); Hematocrit 28.9 VOL% (42.0-52.0); Immature Granulocytes % 0.7 %; Immature Granulocytes Absolute 0.07 #; Lymphocytes # 1.8 10*3/uL (1.4-4.0); Lymphocytes % 17.1 % (21.2-54.2); Mean Corpuscular HGB Conc 31.1 GM/DL (32-36); Mean Corpuscular Volume 91.7 FL (87-102); Monocytes # 0.9 10*3/uL (0.11-0.8); Monocytes % 8.2 % (1.7-12.7); Neutrophils % 67.7 % (38.7-73.9); Platelet Count 369 T/CUMM (130-400); Red Blood Count 3.15 MC/CUMM (3.8-5.5); Red Cell Distribution Width 16.2 % (9.3-17.3); White Blood Count 10.6 T/CUMM (4-12)
[2021-11-24 06:24] LABS: Calcium 7.8 MG/DL (8.5-10.1); Osmolality,Calculated 303.4 MOS/KG (273-304); Potassium 4.3 MMOL/L (3.5-5.1)
[2021-11-24] MEDS: INSULIN LISPRO 100 UNIT/ML SUBCUT SCH ×4 (07:38→22:09)
[2021-11-24] MEDS: SUCRALFATE 1 GM/10 ML UDCUP PO SCH ×4 (07:53→22:08)
[2021-11-24] MEDS: POTASSIUM PHOS/SOD PHOS POWDER 250 MG PACK PO SCH ×3 (07:53→16:37)
[2021-11-24] MEDS: BISACODYL 5 MG TABLET PO SCH (09:45)
[2021-11-24] MEDS: CHOLECALCIFEROL 1,000 UNIT TABLET PO SCH (09:45)
[2021-11-24] MEDS: ASCORBIC ACID 500 MG TABLET PO SCH (09:45)
[2021-11-24] MEDS: FERROUS SULFATE 325 MG TABLET PO SCH (09:45)
[2021-11-24] MEDS: DOXYCYCLINE HYCLATE 100 MG CAPSULE PO SCH ×2 (09:46→22:08)
[2021-11-24] MEDS: PANTOPRAZOLE 40 MG TABLET PO SCH ×2 (09:46→22:09)
[2021-11-24] MEDS: NYSTATIN POWDER 15 GM BOTTLE TOP SCH ×2 (09:46→22:07)
[2021-11-24] MEDS: carvediloL 25 MG TABLET PO SCH ×2 (09:46→22:08)
[2021-11-24] MEDS: ISOSORBIDE MONONITRATE 30 MG TABLET PO SCH (09:46)
[2021-11-24] MEDS: ATORVASTATIN 40 MG TABLET PO SCH (22:09)
[2021-11-24] MEDS: TAMSULOSIN 0.4 MG CAPSULE PO SCH (22:09)
[2021-11-25 04:50] LABS: Basophils # 0.1 10*3/uL (0.0-0.2); Basophils % 0.9 % (0.0-0.8); Eosinophils # 0.5 10*3/uL (0.0-0.87); Hematocrit 28.9 VOL% (42.0-52.0); Immature Granulocytes % 0.8 %; Immature Granulocytes Absolute 0.09 #; Lymphocytes # 2.2 10*3/uL (1.4-4.0); Lymphocytes % 18.5 % (21.2-54.2); Mean Corpuscular HGB Conc 31.1 GM/DL (32-36); Mean Corpuscular Volume 92.6 FL (87-102); Monocytes % 8.7 % (1.7-12.7); Neutrophils % 67.1 % (38.7-73.9); Platelet Count 358 T/CUMM (130-400); Red Blood Count 3.12 MC/CUMM (3.8-5.5); Red Cell Distribution Width 16.3 % (9.3-17.3); White Blood Count 11.7 T/CUMM (4-12)
[2021-11-25 05:13] LABS: Calcium 7.7 MG/DL (8.5-10.1); Osmolality,Calculated 306.4 MOS/KG (273-304); Potassium 4.3 MMOL/L (3.5-5.1)
[2021-11-25] MEDS: POTASSIUM PHOS/SOD PHOS POWDER 250 MG PACK PO SCH (07:56)
[2021-11-25] MEDS: SUCRALFATE 1 GM/10 ML UDCUP PO SCH ×4 (07:56→22:16)
[2021-11-25] MEDS: INSULIN LISPRO 100 UNIT/ML SUBCUT SCH ×4 (07:56→22:28)
[2021-11-25] MEDS: BISACODYL 5 MG TABLET PO SCH (09:28)
[2021-11-25] MEDS: ASCORBIC ACID 500 MG TABLET PO SCH (09:28)
[2021-11-25] MEDS: carvediloL 25 MG TABLET PO SCH ×2 (09:28→22:16)
[2021-11-25] MEDS: DOXYCYCLINE HYCLATE 100 MG CAPSULE PO SCH ×2 (09:28→22:16)
[2021-11-25] MEDS: ISOSORBIDE MONONITRATE 30 MG TABLET PO SCH (09:28)
[2021-11-25] MEDS: PANTOPRAZOLE 40 MG TABLET PO SCH ×2 (09:29→22:15)
[2021-11-25] MEDS: CHOLECALCIFEROL 1,000 UNIT TABLET PO SCH (09:29)
[2021-11-25] MEDS: NYSTATIN POWDER 15 GM BOTTLE TOP SCH ×2 (09:32→22:17)
[2021-11-25] MEDS: FERROUS SULFATE 325 MG TABLET PO SCH (09:32)
[2021-11-25] MEDS: TAMSULOSIN 0.4 MG CAPSULE PO SCH (22:15)
[2021-11-25] MEDS: ATORVASTATIN 40 MG TABLET PO SCH (22:16)
[2021-11-26 05:47] LABS: Basophils # 0.1 10*3/uL (0.0-0.2); Basophils % 0.7 % (0.0-0.8); Eosinophils # 0.4 10*3/uL (0.0-0.87); Eosinophils % 3.6 % (0.00-10.9); Hematocrit 27.8 VOL% (42.0-52.0); Hemoglobin 8.7 GM/DL (14.0-18.0); Immature Granulocytes % 0.8 %; Immature Granulocytes Absolute 0.08 #; Lymphocytes # 1.9 10*3/uL (1.4-4.0); Lymphocytes % 18.4 % (21.2-54.2); Mean Corpuscular HGB Conc 31.3 GM/DL (32-36); Mean Platelet Volume 9.8 FL (9.6-12.0); Monocytes # 0.9 10*3/uL (0.11-0.8); Monocytes % 8.5 % (1.7-12.7); Platelet Count 351 T/CUMM (130-400); Red Blood Count 2.99 MC/CUMM (3.8-5.5); Red Cell Distribution Width 16.1 % (9.3-17.3); White Blood Count 10.3 T/CUMM (4-12)
[2021-11-26 06:12] LABS: Calcium 8.2 MG/DL (8.5-10.1); Osmolality,Calculated 302.5 MOS/KG (273-304); Potassium 4.5 MMOL/L (3.5-5.1)
[2021-11-26] MEDS: SUCRALFATE 1 GM/10 ML UDCUP PO SCH ×4 (07:59→22:03)
[2021-11-26] MEDS: INSULIN LISPRO 100 UNIT/ML SUBCUT SCH ×4 (08:09→22:05)
[2021-11-26] MEDS: ASCORBIC ACID 500 MG TABLET PO SCH (09:04)
[2021-11-26] MEDS: ISOSORBIDE MONONITRATE 30 MG TABLET PO SCH (09:04)
[2021-11-26] MEDS: CHOLECALCIFEROL 1,000 UNIT TABLET PO SCH (09:04)
[2021-11-26] MEDS: PANTOPRAZOLE 40 MG TABLET PO SCH ×2 (09:04→22:04)
[2021-11-26] MEDS: BISACODYL 5 MG TABLET PO SCH (09:04)
[2021-11-26] MEDS: carvediloL 25 MG TABLET PO SCH ×2 (09:05→22:04)
[2021-11-26] MEDS: FERROUS SULFATE 325 MG TABLET PO SCH (09:05)
[2021-11-26] MEDS: DOXYCYCLINE HYCLATE 100 MG CAPSULE PO SCH ×2 (09:05→22:04)
[2021-11-26] MEDS: NYSTATIN POWDER 15 GM BOTTLE TOP SCH ×2 (09:05→22:06)
[2021-11-26] MEDS ORDERED: BISACODYL 5 MG TABLET PO ONE (12:00)
[2021-11-26] MEDS ORDERED: POLYETHYLENE GLYCOL POWDER 255 GM BOTTLE PO ONE (18:00)
[2021-11-26] MEDS ORDERED: oxyCODONE IR 5 MG TABLET PO PRN (18:49)
[2021-11-26] MEDS: TAMSULOSIN 0.4 MG CAPSULE PO SCH (22:04)
[2021-11-26] MEDS: ATORVASTATIN 40 MG TABLET PO SCH (22:04)
[2021-11-27] MEDS ORDERED: SODIUM CHLORIDE 0.9% 1,000 ML IV SCH (06:30)
[2021-11-27] MEDS: INSULIN LISPRO 100 UNIT/ML SUBCUT SCH ×4 (07:30→21:58)
[2021-11-27 08:10] LABS: Basophils # 0.1 10*3/uL (0.0-0.2); Basophils % 0.9 % (0.0-0.8); Eosinophils # 0.4 10*3/uL (0.0-0.87); Hematocrit 31.8 VOL% (42.0-52.0); Hemoglobin 9.9 GM/DL (14.0-18.0); Immature Granulocytes % 0.6 %; Immature Granulocytes Absolute 0.07 #; Lymphocytes # 1.8 10*3/uL (1.4-4.0); Lymphocytes % 16.8 % (21.2-54.2); Mean Corpuscular HGB Conc 31.1 GM/DL (32-36); Mean Corpuscular Volume 91.6 FL (87-102); Mean Platelet Volume 9.6 FL (9.6-12.0); Monocytes # 0.8 10*3/uL (0.11-0.8); Monocytes % 6.9 % (1.7-12.7); Neutrophils % 70.8 % (38.7-73.9); Platelet Count 380 T/CUMM (130-400); Red Blood Count 3.47 MC/CUMM (3.8-5.5); White Blood Count 10.8 T/CUMM (4-12)
[2021-11-27 08:33] LABS: Calcium 8.5 MG/DL (8.5-10.1); Osmolality,Calculated 302.5 MOS/KG (273-304); Potassium 4.9 MMOL/L (3.5-5.1)
[2021-11-27] MEDS: carvediloL 25 MG TABLET PO SCH ×2 (09:30→21:02)
[2021-11-27] MEDS: FERROUS SULFATE 325 MG TABLET PO SCH (09:30)
[2021-11-27] MEDS: NYSTATIN POWDER 15 GM BOTTLE TOP SCH ×2 (09:30→21:03)
[2021-11-27] MEDS: ISOSORBIDE MONONITRATE 30 MG TABLET PO SCH (09:30)
[2021-11-27] MEDS: ASCORBIC ACID 500 MG TABLET PO SCH (09:30)
[2021-11-27] MEDS: PANTOPRAZOLE 40 MG TABLET PO SCH ×2 (09:30→21:02)
[2021-11-27] MEDS: CHOLECALCIFEROL 1,000 UNIT TABLET PO SCH (09:30)
[2021-11-27] MEDS: SUCRALFATE 1 GM/10 ML UDCUP PO SCH ×4 (09:35→21:02)
[2021-11-27] MEDS: ONDANSETRON 4 MG/2 ML VIAL IV PRN (11:23)
[2021-11-27] MEDS: DOXYCYCLINE HYCLATE 100 MG CAPSULE PO SCH ×2 (11:30→21:02)
[2021-11-27] MEDS: BISACODYL 5 MG TABLET PO SCH (11:30)
[2021-11-27] MEDS: ATORVASTATIN 40 MG TABLET PO SCH (21:01)
[2021-11-27] MEDS: TAMSULOSIN 0.4 MG CAPSULE PO SCH (21:02)
[2021-11-28 06:24] LABS: Calcium 8.2 MG/DL (8.5-10.1); Osmolality,Calculated 305.3 MOS/KG (273-304); Potassium 4.8 MMOL/L (3.5-5.1)
[2021-11-28] MEDS ORDERED: SODIUM CHLORIDE 0.9% 1,000 ML IV SCH (06:30)
[2021-11-28 07:54] LABS: Basophils # 0.1 10*3/uL (0.0-0.2); Basophils % 0.8 % (0.0-0.8); Eosinophils # 0.4 10*3/uL (0.0-0.87); Eosinophils % 4.1 % (0.00-10.9); Hematocrit 31.2 VOL% (42.0-52.0); Hemoglobin 9.7 GM/DL (14.0-18.0); Immature Granulocytes % 0.6 %; Immature Granulocytes Absolute 0.06 #; Lymphocytes # 1.4 10*3/uL (1.4-4.0); Lymphocytes % 13.6 % (21.2-54.2); Mean Corpuscular HGB Conc 31.1 GM/DL (32-36); Mean Corpuscular Volume 92.3 FL (87-102); Mean Platelet Volume 9.9 FL (9.6-12.0); Monocytes # 0.6 10*3/uL (0.11-0.8); Neutrophils % 74.9 % (38.7-73.9); Platelet Count 390 T/CUMM (130-400); Red Blood Count 3.38 MC/CUMM (3.8-5.5); Red Cell Distribution Width 15.9 % (9.3-17.3); White Blood Count 10.6 T/CUMM (4-12)
[2021-11-28] MEDS: INSULIN LISPRO 100 UNIT/ML SUBCUT SCH ×4 (08:00→21:17)
[2021-11-28] MEDS: SUCRALFATE 1 GM/10 ML UDCUP PO SCH ×4 (08:00→21:04)
[2021-11-28] MEDS: carvediloL 25 MG TABLET PO SCH ×2 (09:00→21:04)
[2021-11-28 09:38] LABS: PT Patient Result 11.4 SECS (10.5-12.0)
[2021-11-28] MEDS ORDERED: POLYETHYLENE GLYCOL POWDER 255 GM BOTTLE PO ONE (13:00)
[2021-11-28] MEDS: NYSTATIN POWDER 15 GM BOTTLE TOP SCH ×2 (14:28→21:57)
[2021-11-28] MEDS: PANTOPRAZOLE 40 MG TABLET PO SCH ×2 (14:28→21:04)
[2021-11-28] MEDS: ASCORBIC ACID 500 MG TABLET PO SCH (14:28)
[2021-11-28] MEDS: DOXYCYCLINE HYCLATE 100 MG CAPSULE PO SCH ×2 (14:28→21:04)
[2021-11-28] MEDS: ISOSORBIDE MONONITRATE 30 MG TABLET PO SCH (14:28)
[2021-11-28] MEDS: BISACODYL 5 MG TABLET PO SCH (14:28)
[2021-11-28] MEDS: FERROUS SULFATE 325 MG TABLET PO SCH (14:28)
[2021-11-28] MEDS: CHOLECALCIFEROL 1,000 UNIT TABLET PO SCH (14:29)
[2021-11-28] MEDS: ONDANSETRON 4 MG/2 ML VIAL IV PRN (19:39)
[2021-11-28] MEDS: ATORVASTATIN 40 MG TABLET PO SCH (21:04)
[2021-11-28] MEDS: TAMSULOSIN 0.4 MG CAPSULE PO SCH (21:04)
[2021-11-29] MEDS ORDERED: SODIUM CHLORIDE 0.9% 1,000 ML IV SCH (06:00)
[2021-11-29 06:20] LABS: Basophils # 0.1 10*3/uL (0.0-0.2); Basophils % 0.7 % (0.0-0.8); Eosinophils # 0.5 10*3/uL (0.0-0.87); Eosinophils % 4.9 % (0.00-10.9); Hemoglobin 9.7 GM/DL (14.0-18.0); Immature Granulocytes % 0.4 %; Immature Granulocytes Absolute 0.04 #; Lymphocytes # 1.4 10*3/uL (1.4-4.0); Lymphocytes % 13.3 % (21.2-54.2); Mean Corpuscular HGB Conc 31.3 GM/DL (32-36); Mean Corpuscular Volume 91.7 FL (87-102); Mean Platelet Volume 9.6 FL (9.6-12.0); Monocytes # 0.7 10*3/uL (0.11-0.8); Monocytes % 6.8 % (1.7-12.7); Neutrophils % 73.9 % (38.7-73.9); Platelet Count 378 T/CUMM (130-400); Red Blood Count 3.38 MC/CUMM (3.8-5.5); Red Cell Distribution Width 15.2 % (9.3-17.3); White Blood Count 10.4 T/CUMM (4-12)
[2021-11-29 06:34] LABS: Calcium 8.2 MG/DL (8.5-10.1); Osmolality,Calculated 305.3 MOS/KG (273-304); Potassium 4.9 MMOL/L (3.5-5.1)
[2021-11-29] MEDS: ISOSORBIDE MONONITRATE 30 MG TABLET PO SCH (10:07)
[2021-11-29] MEDS: ASCORBIC ACID 500 MG TABLET PO SCH (10:07)
[2021-11-29] MEDS: DOXYCYCLINE HYCLATE 100 MG CAPSULE PO SCH (10:07)
[2021-11-29] MEDS: FERROUS SULFATE 325 MG TABLET PO SCH (10:07)
[2021-11-29] MEDS: CHOLECALCIFEROL 1,000 UNIT TABLET PO SCH (10:07)
[2021-11-29] MEDS: PANTOPRAZOLE 40 MG TABLET PO SCH ×2 (10:08→22:48)
[2021-11-29] MEDS: carvediloL 25 MG TABLET PO SCH ×2 (10:08→22:48)
[2021-11-29] MEDS: SUCRALFATE 1 GM/10 ML UDCUP PO SCH ×4 (10:08→22:47)
[2021-11-29] MEDS: BISACODYL 5 MG TABLET PO SCH (10:08)
[2021-11-29] MEDS: NYSTATIN POWDER 15 GM BOTTLE TOP SCH ×2 (10:09→22:49)
[2021-11-29] MEDS: INSULIN LISPRO 100 UNIT/ML SUBCUT SCH ×4 (10:10→20:34)
[2021-11-29] MEDS ORDERED: POLYETHYLENE GLYCOL POWDER 255 GM BOTTLE PO ONE (11:00)
[2021-11-29] MEDS: TAMSULOSIN 0.4 MG CAPSULE PO SCH (22:47)
[2021-11-29] MEDS: ATORVASTATIN 40 MG TABLET PO SCH (22:48)
[2021-11-30 07:01] LABS: Basophils # 0.1 10*3/uL (0.0-0.2); Basophils % 0.9 % (0.0-0.8); Eosinophils # 0.4 10*3/uL (0.0-0.87); Eosinophils % 4.7 % (0.00-10.9); Hematocrit 29.3 VOL% (42.0-52.0); Hemoglobin 9.1 GM/DL (14.0-18.0); Immature Granulocytes % 0.4 %; Immature Granulocytes Absolute 0.04 #; Lymphocytes # 1.5 10*3/uL (1.4-4.0); Lymphocytes % 15.8 % (21.2-54.2); Mean Corpuscular HGB Conc 31.1 GM/DL (32-36); Mean Corpuscular Volume 92.1 FL (87-102); Mean Platelet Volume 9.8 FL (9.6-12.0); Monocytes # 0.7 10*3/uL (0.11-0.8); Monocytes % 7.3 % (1.7-12.7); Neutrophils % 70.9 % (38.7-73.9); Platelet Count 342 T/CUMM (130-400); Red Blood Count 3.18 MC/CUMM (3.8-5.5); Red Cell Distribution Width 14.9 % (9.3-17.3); White Blood Count 9.3 T/CUMM (4-12)
[2021-11-30 07:15] LABS: Calcium 7.9 MG/DL (8.5-10.1); Osmolality,Calculated 300.5 MOS/KG (273-304); Potassium 4.9 MMOL/L (3.5-5.1)
[2021-11-30] MEDS ORDERED: SODIUM BICARB INJ 100 MEQ in DEXTROSE 5% 1,000 ML IV SCH (07:30)
[2021-11-30] MEDS: INSULIN LISPRO 100 UNIT/ML SUBCUT SCH ×4 (09:36→20:03)
[2021-11-30] MEDS ORDERED: DEXTROSE 50% 25 GM/50 ML VIAL IV PRN (11:13)
[2021-11-30] MEDS: SUCRALFATE 1 GM/10 ML UDCUP PO SCH ×3 (11:22→20:03)
[2021-11-30] MEDS: carvediloL 25 MG TABLET PO SCH ×2 (11:23→20:03)
[2021-11-30] MEDS: FERROUS SULFATE 325 MG TABLET PO SCH (11:23)
[2021-11-30] MEDS: NYSTATIN POWDER 15 GM BOTTLE TOP SCH ×2 (11:23→20:03)
[2021-11-30] MEDS: PANTOPRAZOLE 40 MG TABLET PO SCH ×2 (11:23→20:03)
[2021-11-30] MEDS: ASCORBIC ACID 500 MG TABLET PO SCH (11:23)
[2021-11-30] MEDS: ISOSORBIDE MONONITRATE 30 MG TABLET PO SCH (11:23)
[2021-11-30] MEDS: BISACODYL 5 MG TABLET PO SCH (11:23)
[2021-11-30] MEDS: CHOLECALCIFEROL 1,000 UNIT TABLET PO SCH (11:23)
[2021-11-30] MEDS: SODIUM BICARBONATE 650 MG TABLET PO SCH ×2 (11:26→20:03)
[2021-11-30] MEDS: ATORVASTATIN 40 MG TABLET PO SCH (20:02)
[2021-11-30] MEDS: TAMSULOSIN 0.4 MG CAPSULE PO SCH (20:02)
[2021-12-01 06:25] LABS: Basophils # 0.1 10*3/uL (0.0-0.2); Basophils % 0.8 % (0.0-0.8); Eosinophils # 0.5 10*3/uL (0.0-0.87); Eosinophils % 5.1 % (0.00-10.9); Hematocrit 30.8 VOL% (42.0-52.0); Hemoglobin 9.6 GM/DL (14.0-18.0); Immature Granulocytes % 0.3 %; Immature Granulocytes Absolute 0.03 #; Lymphocytes # 1.5 10*3/uL (1.4-4.0); Lymphocytes % 15.9 % (21.2-54.2); Mean Corpuscular HGB Conc 31.2 GM/DL (32-36); Mean Corpuscular Volume 90.9 FL (87-102); Mean Platelet Volume 9.7 FL (9.6-12.0); Monocytes # 0.6 10*3/uL (0.11-0.8); Monocytes % 6.6 % (1.7-12.7); Neutrophils % 71.3 % (38.7-73.9); Platelet Count 362 T/CUMM (130-400); Red Blood Count 3.39 MC/CUMM (3.8-5.5); Red Cell Distribution Width 14.8 % (9.3-17.3); White Blood Count 9.2 T/CUMM (4-12)
[2021-12-01 06:36] LABS: Osmolality,Calculated 308.7 MOS/KG (273-304); Potassium 4.6 MMOL/L (3.5-5.1)
[2021-12-01] MEDS: FERROUS SULFATE 325 MG TABLET PO SCH (08:56)
[2021-12-01] MEDS: CHOLECALCIFEROL 1,000 UNIT TABLET PO SCH (08:56)
[2021-12-01] MEDS: ASCORBIC ACID 500 MG TABLET PO SCH (08:56)
[2021-12-01] MEDS: SUCRALFATE 1 GM/10 ML UDCUP PO SCH ×4 (08:56→21:38)
[2021-12-01] MEDS: INSULIN LISPRO 100 UNIT/ML SUBCUT SCH ×4 (08:56→21:38)
[2021-12-01] MEDS: PANTOPRAZOLE 40 MG TABLET PO SCH ×2 (08:56→21:42)
[2021-12-01] MEDS: SODIUM BICARBONATE 650 MG TABLET PO SCH ×2 (08:56→21:39)
[2021-12-01] MEDS: BISACODYL 5 MG TABLET PO SCH (08:57)
[2021-12-01] MEDS: NYSTATIN POWDER 15 GM BOTTLE TOP SCH ×2 (08:57→22:55)
[2021-12-01] MEDS: ISOSORBIDE MONONITRATE 30 MG TABLET PO SCH (08:57)
[2021-12-01] MEDS: carvediloL 25 MG TABLET PO SCH ×2 (08:57→21:38)
[2021-12-01] MEDS: TAMSULOSIN 0.4 MG CAPSULE PO SCH (21:38)
[2021-12-01] MEDS: ATORVASTATIN 40 MG TABLET PO SCH (21:38)
[2021-12-02] MEDS ORDERED: BUPIVACAINE MPF 0.25% 10 ML VIAL ONE (06:21)
[2021-12-02] MEDS ORDERED: HEPARIN 5,000 UNIT/1 ML VIAL ONE (06:21)
[2021-12-02] MEDS ORDERED: LIDOCAINE 1%/EPI INJ 20 ML VIAL ONE (06:22)
[2021-12-02] MEDS ORDERED: propofoL 200 MG/20 ML VIAL IV ONE (06:24)
[2021-12-02] MEDS ORDERED: SODIUM CHLORIDE 0.9% 100 ML IV ONE (06:24)
[2021-12-02] MEDS ORDERED: LIDOCAINE 2% 5 ML VIAL ONE (06:24)
[2021-12-02 06:26] LABS: Calcium 7.6 MG/DL (8.5-10.1); Osmolality,Calculated 307.7 MOS/KG (273-304); Potassium 4.7 MMOL/L (3.5-5.1)
[2021-12-02] MEDS ORDERED: MIDAZOLAM 2 MG/2 ML VIAL ONE (08:05)
[2021-12-02] MEDS ORDERED: PHENYLEPHRINE 10 MG/1 ML VIAL IV ONE (08:19)
[2021-12-02] MEDS ORDERED: PHENYLEPHRINE 1 MG/10 ML SYRINGE IV ONE (08:19)
[2021-12-02] MEDS ORDERED: PHENYLEPHRINE DRIP 40 MG/250 ML PREMIX IV ONE (08:37)
[2021-12-02] MEDS ORDERED: SODIUM BICARBONATE 50 MEQ/50 ML VIAL IV ONE ×2 (08:51→10:51)
[2021-12-02 08:58] LABS: Arterial Base Excess iSTAT -6 MMOL/L (-2.5-2.5); Arterial Bicarbonate iSTAT 20.4 MMOL/L (20-26); Arterial O2 Saturation iSTAT 100 % (95-100); Arterial PCO2 iSTAT 46 MM HG (35-48); Arterial PO2 iSTAT 203 MM HG (80-95); Arterial Total CO2 iSTAT 22 MMO/L (23-27); Arterial pH iSTAT 7.257 (7.35-7.45)
[2021-12-02] MEDS: MIDAZOLAM 100 MG in SODIUM CHLORIDE 0.9% 80 ML IV PRN ×2 (09:00→19:39)
[2021-12-02] MEDS: PHENYLEPHRINE DRIP 40 MG/250 ML PREMIX IV PRN ×4 (09:01→15:58)
[2021-12-02] MEDS ORDERED: ALBUMIN 25% 25 GM/100 ML VIAL IV ONE (09:11)
[2021-12-02] MEDS: SUCRALFATE 1 GM/10 ML UDCUP PO SCH ×4 (09:38→20:27)
[2021-12-02] MEDS: INSULIN LISPRO 100 UNIT/ML SUBCUT SCH ×4 (09:39→20:45)
[2021-12-02] MEDS: fentaNYL INJ 1,250 MCG in SODIUM CHLORIDE 0.9% 225 ML IV PRN ×4 (10:06→22:27)
[2021-12-02] MEDS: SODIUM BICARBONATE 650 MG TABLET PO SCH ×3 (10:08→20:27)
[2021-12-02] MEDS: carvediloL 25 MG TABLET PO SCH ×2 (10:08→11:52)
[2021-12-02] MEDS: BISACODYL 5 MG TABLET PO SCH ×2 (10:09→11:54)
[2021-12-02] MEDS: FERROUS SULFATE 325 MG TABLET PO SCH ×2 (10:09→11:54)
[2021-12-02] MEDS: ISOSORBIDE MONONITRATE 30 MG TABLET PO SCH ×2 (10:09→10:17)
[2021-12-02] MEDS: CHOLECALCIFEROL 1,000 UNIT TABLET PO SCH ×2 (10:09→11:55)
[2021-12-02] MEDS: ASCORBIC ACID 500 MG TABLET PO SCH ×2 (10:09→11:55)
[2021-12-02] MEDS: PANTOPRAZOLE 40 MG TABLET PO SCH ×2 (10:09→11:55)
[2021-12-02] MEDS ORDERED: SODIUM BICARBONATE 50 MEQ/50 ML SYRINGE IV ONE (10:29)
[2021-12-02] MEDS ORDERED: NOREPINEPHRINE 4 MG/4 ML VIAL IV ONE (10:32)
[2021-12-02] MEDS ORDERED: SODIUM CHLORIDE 0.9% 500 ML IV ONE ×2 (10:35→10:50)
[2021-12-02 10:49] LABS: Arterial Base Excess iSTAT -6 MMOL/L (-2.5-2.5); Arterial Bicarbonate iSTAT 20.9 MMOL/L (20-26); Arterial O2 Saturation iSTAT 86 % (95-100); Arterial PCO2 iSTAT 46 MM HG (35-48); Arterial PO2 iSTAT 59 MM HG (80-95); Arterial Total CO2 iSTAT 22 MMO/L (23-27); Arterial pH iSTAT 7.264 (7.35-7.45)
[2021-12-02] MEDS ORDERED: CISATRACURIUM 10 MG/5 ML VIAL IV ONE (10:49)
[2021-12-02] MEDS: NOREPINEPHRINE 8 MG in SODIUM CHLORIDE 0.9% 242 ML IV PRN ×2 (10:50→16:32)
[2021-12-02 10:51] LABS: Basophils # 0.1 10*3/uL (0.0-0.2); Basophils % 0.6 % (0.0-0.8); Eosinophils # 0.3 10*3/uL (0.0-0.87); Eosinophils % 3.7 % (0.00-10.9); Hematocrit 27.9 VOL% (42.0-52.0); Hemoglobin 8.7 GM/DL (14.0-18.0); Immature Granulocytes % 0.3 %; Immature Granulocytes Absolute 0.03 #; Lymphocytes # 1.3 10*3/uL (1.4-4.0); Lymphocytes % 14.2 % (21.2-54.2); Mean Corpuscular HGB Conc 31.2 GM/DL (32-36); Mean Corpuscular Volume 91.2 FL (87-102); Mean Platelet Volume 10.1 FL (9.6-12.0); Monocytes # 0.6 10*3/uL (0.11-0.8); Monocytes % 6.5 % (1.7-12.7); Neutrophils % 74.7 % (38.7-73.9); Platelet Count 323 T/CUMM (130-400); Red Blood Count 3.06 MC/CUMM (3.8-5.5); Red Cell Distribution Width 14.9 % (9.3-17.3); White Blood Count 8.9 T/CUMM (4-12)
[2021-12-02 11:05] LABS: Alanine Aminotransferase 24 U/L (16-61); Alkaline Phosphatase 99 U/L (45-117); Aspartate Amino Transferase 14 U/L (0-37); Bilirubin,Total < 0.39 MG/DL (0.20-1.00); Blood Urea Nitrogen 102 MG/DL (7-18); Calcium 7.8 MG/DL (8.5-10.1); Carbon Dioxide 18 MMOL/L (21-32); Chloride 110 MMOL/L (98-107); Glucose 124 MG/DL (74-106); Osmolality,Calculated 311.4 MOS/KG (273-304); Potassium 4.8 MMOL/L (3.5-5.1); Sodium 140 MMOL/L (136-145)
[2021-12-02] MEDS: CISATRACURIUM 200 MG in SODIUM CHLORIDE 0.9% 180 ML IV PRN ×2 (11:08→23:40)
[2021-12-02] MEDS: NYSTATIN POWDER 15 GM BOTTLE TOP SCH ×2 (11:36→20:56)
[2021-12-02] MEDS: PIPERACILLIN/TAZOBACTAM 3,375 MG in SODIUM CHLORIDE 0.9% 100 ML IV SCH ×2 (12:09→22:57)
[2021-12-02 12:58] LABS: Basophils % 1.7 % (0.0-0.8); Eosinophils # 0.1 10*3/uL (0.0-0.87); Hematocrit 36.7 VOL% (42.0-52.0); Hemoglobin 11.3 GM/DL (14.0-18.0); Lymphocytes # 0.4 10*3/uL (1.4-4.0); Mean Corpuscular HGB Conc 30.8 GM/DL (32-36); Mean Corpuscular Volume 91.8 FL (87-102); Mean Platelet Volume 10.1 FL (9.6-12.0); Monocytes % 0.8 % (1.7-12.7); Neutrophils % 57.5 % (38.7-73.9); Platelet Count 343 T/CUMM (130-400); Red Cell Distribution Width 14.9 % (9.3-17.3); White Blood Count 1.2 T/CUMM (4-12)
[2021-12-02 13:07] LABS: INR 1.1; PT Patient Result 11.6 SECS (10.1-12.1); Partial Thromboplastin Time 38.7 SECS (23.7-32.9)
[2021-12-02 13:13] LABS: Alanine Aminotransferase 17 U/L (16-61); Albumin 1.8 G/DL (3.4-5.0); Alkaline Phosphatase 84 U/L (45-117); Aspartate Amino Transferase 13 U/L (0-37); Bilirubin,Total < 0.39 MG/DL (0.20-1.00); Blood Urea Nitrogen 95 MG/DL (7-18); Calcium 7.3 MG/DL (8.5-10.1); Carbon Dioxide 22 MMOL/L (21-32); Chloride 113 MMOL/L (98-107); Glucose 156 MG/DL (74-106); Osmolality,Calculated 312.3 MOS/KG (273-304); Potassium 4.5 MMOL/L (3.5-5.1); Sodium 141 MMOL/L (136-145); Total Protein 4.5 G/DL (6.4-8.2)
[2021-12-02 13:23] LABS: Band Neutrophils 4 % (0-10); Eosinophils 3 % (0-10); Lymphocytes 23 % (20-55); Platelet Estimate Normal; Total Cells Counted 100
[2021-12-02 13:24] LABS: Burr Cells Slight; Tear Drop Cells Slight
[2021-12-02 13:25] LABS: Acanthocytes Few
[2021-12-02 13:32] LABS: Basophils % 0.8 % (0.0-0.8); Eosinophils % 1.7 % (0.00-10.9); Hematocrit 37.7 VOL% (42.0-52.0); Hemoglobin 11.9 GM/DL (14.0-18.0); Lymphocytes # 0.3 10*3/uL (1.4-4.0); Lymphocytes % 24.8 % (21.2-54.2); Mean Corpuscular HGB Conc 31.6 GM/DL (32-36); Mean Corpuscular Volume 89.3 FL (87-102); Mean Platelet Volume 9.5 FL (9.6-12.0); Monocytes % 1.7 % (1.7-12.7); Platelet Count 329 T/CUMM (130-400); Red Blood Count 4.22 MC/CUMM (3.8-5.5); White Blood Count 1.2 T/CUMM (4-12)
[2021-12-02] MEDS ORDERED: VANCOMYCIN INJ 500 MG in SODIUM CHLORIDE 0.9% 100 ML IV PRN (13:56)
[2021-12-02] MEDS ORDERED: VANCOMYCIN INJ 1,000 MG in SODIUM CHLORIDE 0.9% 250 ML IV SCH (14:00)
[2021-12-02 14:15] LABS: Band Neutrophils 6 % (0-10); Eosinophils 2 % (0-10); Lymphocytes 21 % (20-55); Total Cells Counted 100
[2021-12-02 14:17] LABS: ABG Base Excess -7.1 MMOL/L (-2.5-2.5); ABG HCO3 18.6 MMOL/L (20-26); ABG Oxygen Saturation 90.7 % (95-100); ABG PCO2 38.6 MM HG (35-48); ABG PH 7.298 (7.35-7.45); ABG PO2 64.5 MM HG (80-95)
[2021-12-02 14:17] LABS: Acanthocytes Few; Atypical Lymphocytes Few; Burr Cells 1+; Tear Drop Cells Slight
[2021-12-02 14:18] LABS: Ovalocytes Slight; Platelet Estimate Adequate
[2021-12-02] MEDS ORDERED: HEPARIN 10,000 UNIT/10 ML VIAL IV SCH (14:45)
[2021-12-02] MEDS ORDERED: VANCOMYCIN INJ 2,000 MG in SODIUM CHLORIDE 0.9% 500 ML IV ONE (18:00)
[2021-12-02] MEDS: ALBUTEROL/IPRATROPIUM 3 ML NEB RESP TX SCH (18:56)
[2021-12-02] MEDS: PANTOPRAZOLE 40 MG VIAL IV SCH (20:27)
[2021-12-02] MEDS: ATORVASTATIN 40 MG TABLET PO SCH (20:27)
[2021-12-02] MEDS: TAMSULOSIN 0.4 MG CAPSULE PO SCH (20:27)
[2021-12-02] MEDS: NOREPINEPHRINE 16 MG in SODIUM CHLORIDE 0.9% 234 ML IV PRN (21:55)
[2021-12-03] MEDS: ALBUTEROL/IPRATROPIUM 3 ML NEB RESP TX SCH ×4 (00:15→19:00)
[2021-12-03] MEDS: fentaNYL INJ 1,250 MCG in SODIUM CHLORIDE 0.9% 225 ML IV PRN ×4 (03:15→20:12)
[2021-12-03 04:02] LABS: ABG Base Excess -6.5 MMOL/L (-2.5-2.5); ABG HCO3 19.1 MMOL/L (20-26); ABG Oxygen Saturation 98.2 % (95-100); ABG PCO2 33.6 MM HG (35-48); ABG PH 7.346 (7.35-7.45); ABG TCO2 16.8 MMOL/L (23-27)
[2021-12-03 04:08] LABS: Eosinophils % 0.5 % (0.00-10.9); Hematocrit 30.5 VOL% (42.0-52.0); Hemoglobin 9.7 GM/DL (14.0-18.0); Immature Granulocytes % 0.9 %; Immature Granulocytes Absolute 0.02 #; Lymphocytes # 0.2 10*3/uL (1.4-4.0); Lymphocytes % 10.6 % (21.2-54.2); Mean Corpuscular HGB Conc 31.8 GM/DL (32-36); Mean Corpuscular Volume 88.4 FL (87-102); Mean Platelet Volume 9.9 FL (9.6-12.0); Monocytes # 0.1 10*3/uL (0.11-0.8); Monocytes % 5.6 % (1.7-12.7); Neutrophils % 82.4 % (38.7-73.9); Platelet Count 241 T/CUMM (130-400); Red Blood Count 3.45 MC/CUMM (3.8-5.5); Red Cell Distribution Width 14.9 % (9.3-17.3); White Blood Count 2.2 T/CUMM (4-12)
[2021-12-03 04:35] LABS: Band Neutrophils 8 % (0-10); Eosinophils 2 % (0-10); Lymphocytes 11 % (20-55); Total Cells Counted 100
[2021-12-03 04:36] LABS: Platelet Estimate Normal
[2021-12-03 04:37] LABS: Burr Cells 1+
[2021-12-03 04:38] LABS: Acanthocytes Few; Ovalocytes Slight; Tear Drop Cells Slight
[2021-12-03 04:39] LABS: Alanine Aminotransferase 18 U/L (16-61); Albumin 1.9 G/DL (3.4-5.0); Alkaline Phosphatase 52 U/L (45-117); Aspartate Amino Transferase 20 U/L (0-37); Bilirubin,Total < 0.39 MG/DL (0.20-1.00); Blood Urea Nitrogen 88 MG/DL (7-18); Calcium 6.8 MG/DL (8.5-10.1); Carbon Dioxide 20 MMOL/L (21-32); Chloride 114 MMOL/L (98-107); Glucose 123 MG/DL (74-106); Osmolality,Calculated 313.8 MOS/KG (273-304); Potassium 4.5 MMOL/L (3.5-5.1); Sodium 144 MMOL/L (136-145); Total Protein 4.2 G/DL (6.4-8.2)
[2021-12-03] MEDS: MIDAZOLAM 100 MG in SODIUM CHLORIDE 0.9% 80 ML IV PRN (08:05)
[2021-12-03] MEDS: PANTOPRAZOLE 40 MG VIAL IV SCH ×2 (08:38→21:09)
[2021-12-03] MEDS: SUCRALFATE 1 GM/10 ML UDCUP PO SCH ×4 (08:39→21:09)
[2021-12-03] MEDS: SODIUM BICARBONATE 650 MG TABLET PO SCH ×2 (08:39→21:09)
[2021-12-03] MEDS: ASCORBIC ACID 500 MG TABLET PO SCH (08:39)
[2021-12-03] MEDS: FERROUS SULFATE 325 MG TABLET PO SCH (08:39)
[2021-12-03] MEDS: BISACODYL 5 MG TABLET PO SCH (08:39)
[2021-12-03] MEDS: CHOLECALCIFEROL 1,000 UNIT TABLET PO SCH (08:39)
[2021-12-03] MEDS: NYSTATIN POWDER 15 GM BOTTLE TOP SCH ×2 (08:40→21:09)
[2021-12-03] MEDS: INSULIN LISPRO 100 UNIT/ML SUBCUT SCH ×4 (08:44→21:35)
[2021-12-03] MEDS: PIPERACILLIN/TAZOBACTAM 3,375 MG in SODIUM CHLORIDE 0.9% 100 ML IV SCH ×2 (10:54→22:59)
[2021-12-03] MEDS: TAMSULOSIN 0.4 MG CAPSULE PO SCH (21:09)
[2021-12-03] MEDS: ATORVASTATIN 40 MG TABLET PO SCH (21:09)
[2021-12-03] MEDS: NOREPINEPHRINE 16 MG in SODIUM CHLORIDE 0.9% 234 ML IV PRN (23:17)
[2021-12-04 03:57] LABS: ABG HCO3 17.2 MMOL/L (20-26); ABG Oxygen Saturation 98.8 % (95-100); ABG PCO2 41.6 MM HG (35-48); ABG PH 7.243 (7.35-7.45); ABG TCO2 16.8 MMOL/L (23-27)
[2021-12-04 04:04] LABS: Basophils % 0.1 % (0.0-0.8); Eosinophils % 0.4 % (0.00-10.9); Hemoglobin 9.4 GM/DL (14.0-18.0); Immature Granulocytes % 2.2 %; Immature Granulocytes Absolute 0.15 #; Lymphocytes # 0.3 10*3/uL (1.4-4.0); Lymphocytes % 3.9 % (21.2-54.2); Mean Corpuscular HGB Conc 31.3 GM/DL (32-36); Mean Corpuscular Volume 90.6 FL (87-102); Mean Platelet Volume 10.1 FL (9.6-12.0); Monocytes # 0.2 10*3/uL (0.11-0.8); Monocytes % 2.4 % (1.7-12.7); Platelet Count 209 T/CUMM (130-400); Red Blood Count 3.31 MC/CUMM (3.8-5.5); Red Cell Distribution Width 15.2 % (9.3-17.3); White Blood Count 6.7 T/CUMM (4-12)
[2021-12-04 04:17] LABS: Alanine Aminotransferase 95 U/L (16-61); Alkaline Phosphatase 46 U/L (45-117); Aspartate Amino Transferase 116 U/L (0-37); Bilirubin,Total < 0.39 MG/DL (0.20-1.00); Blood Urea Nitrogen 92 MG/DL (7-18); Calcium 7.2 MG/DL (8.5-10.1); Carbon Dioxide 18 MMOL/L (21-32); Chloride 113 MMOL/L (98-107); Glucose 79 MG/DL (74-106); Osmolality,Calculated 312.8 MOS/KG (273-304); Sodium 144 MMOL/L (136-145); Total Protein 5.3 G/DL (6.4-8.2)
[2021-12-04 04:20] LABS: Calcium 7.3 MG/DL (8.5-10.1); Osmolality,Calculated 312.8 MOS/KG (273-304); Potassium 5.1 MMOL/L (3.5-5.1)
[2021-12-04 04:25] LABS: Band Neutrophils 9 % (0-10); Eosinophils 1 % (0-10); Lymphocytes 7 % (20-55); Total Cells Counted 100
[2021-12-04 04:26] LABS: Acanthocytes Few; Hypochromia 1+; Microcytosis 1+; Polychromasia Slight
[2021-12-04 04:27] LABS: Burr Cells Few; Platelet Estimate Normal
[2021-12-04] MEDS: ALBUTEROL/IPRATROPIUM 3 ML NEB RESP TX SCH ×4 (07:21→19:40)
[2021-12-04] MEDS: PANTOPRAZOLE 40 MG VIAL IV SCH ×2 (08:15→20:50)
[2021-12-04] MEDS: SODIUM BICARBONATE 650 MG TABLET PO SCH ×2 (08:20→20:49)
[2021-12-04] MEDS: SUCRALFATE 1 GM/10 ML UDCUP PO SCH ×4 (08:20→20:49)
[2021-12-04] MEDS: ASCORBIC ACID 500 MG TABLET PO SCH (08:20)
[2021-12-04] MEDS: CHOLECALCIFEROL 1,000 UNIT TABLET PO SCH (08:20)
[2021-12-04] MEDS: FERROUS SULFATE 325 MG TABLET PO SCH (08:20)
[2021-12-04] MEDS: MIDAZOLAM 100 MG in SODIUM CHLORIDE 0.9% 80 ML IV PRN (08:35)
[2021-12-04] MEDS: BISACODYL 5 MG TABLET PO SCH (09:01)
[2021-12-04] MEDS: fentaNYL INJ 1,250 MCG in SODIUM CHLORIDE 0.9% 225 ML IV PRN (09:30)
[2021-12-04] MEDS: NYSTATIN POWDER 15 GM BOTTLE TOP SCH ×2 (09:45→20:49)
[2021-12-04] MEDS: NOREPINEPHRINE 16 MG in SODIUM CHLORIDE 0.9% 234 ML IV PRN (12:00)
[2021-12-04] MEDS: PIPERACILLIN/TAZOBACTAM 3,375 MG in SODIUM CHLORIDE 0.9% 100 ML IV SCH ×2 (12:00→22:59)
[2021-12-04] MEDS: INSULIN LISPRO 100 UNIT/ML SUBCUT SCH ×2 (12:00→17:55)
[2021-12-04] MEDS ORDERED: VANCOMYCIN INJ 500 MG in SODIUM CHLORIDE 0.9% 100 ML IV ONE (17:00)
[2021-12-04] MEDS: TAMSULOSIN 0.4 MG CAPSULE PO SCH (20:49)
[2021-12-04] MEDS: ATORVASTATIN 40 MG TABLET PO SCH (20:49)
[2021-12-04] MEDS: MORPHINE 2 MG/1 ML SYRINGE IV PRN (22:42)
[2021-12-05] MEDS: INSULIN LISPRO 100 UNIT/ML SUBCUT SCH ×4 (00:25→18:00)
[2021-12-05] MEDS: ALBUTEROL/IPRATROPIUM 3 ML NEB RESP TX SCH ×4 (01:16→19:04)
[2021-12-05] MEDS: fentaNYL INJ 1,250 MCG in SODIUM CHLORIDE 0.9% 225 ML IV PRN ×2 (01:26→16:55)
[2021-12-05 03:50] LABS: ABG Base Excess -3.2 MMOL/L (-2.5-2.5); ABG HCO3 21.7 MMOL/L (20-26); ABG PH 7.343 (7.35-7.45); ABG PO2 71.6 MM HG (80-95); ABG TCO2 20.6 MMOL/L (23-27); Basophils % 0.4 % (0.0-0.8); Eosinophils # 0.2 10*3/uL (0.0-0.87); Eosinophils % 2.2 % (0.00-10.9); Hematocrit 25.9 VOL% (42.0-52.0); Hemoglobin 8.2 GM/DL (14.0-18.0); Immature Granulocytes % 1.6 %; Immature Granulocytes Absolute 0.17 #; Lymphocytes # 0.4 10*3/uL (1.4-4.0); Mean Corpuscular HGB Conc 31.7 GM/DL (32-36); Mean Corpuscular Volume 90.6 FL (87-102); Mean Platelet Volume 10.7 FL (9.6-12.0); Monocytes # 0.3 10*3/uL (0.11-0.8); Monocytes % 2.3 % (1.7-12.7); Neutrophils % 89.5 % (38.7-73.9); Platelet Count 186 T/CUMM (130-400); Red Blood Count 2.86 MC/CUMM (3.8-5.5); Red Cell Distribution Width 15.7 % (9.3-17.3); White Blood Count 10.7 T/CUMM (4-12)
[2021-12-05 04:03] LABS: Calcium 7.1 MG/DL (8.5-10.1); Osmolality,Calculated 292.5 MOS/KG (273-304); Potassium 4.4 MMOL/L (3.5-5.1)
[2021-12-05 04:09] LABS: Band Neutrophils 3 % (0-10); Eosinophils 1 % (0-10); Hypochromia Slight; Lymphocytes 5 % (20-55); Platelet Estimate Adequate; Total Cells Counted 100
[2021-12-05 04:10] LABS: Microcytosis Slight
[2021-12-05] MEDS: NOREPINEPHRINE 16 MG in SODIUM CHLORIDE 0.9% 234 ML IV PRN ×2 (04:41→21:20)
[2021-12-05] MEDS: CHOLECALCIFEROL 1,000 UNIT TABLET PO SCH (07:50)
[2021-12-05] MEDS: SODIUM BICARBONATE 650 MG TABLET PO SCH ×2 (07:50→20:30)
[2021-12-05] MEDS: ASCORBIC ACID 500 MG TABLET PO SCH (07:50)
[2021-12-05] MEDS: FERROUS SULFATE 325 MG TABLET PO SCH (07:50)
[2021-12-05] MEDS: SUCRALFATE 1 GM/10 ML UDCUP PO SCH ×4 (07:50→20:30)
[2021-12-05] MEDS: PANTOPRAZOLE 40 MG VIAL IV SCH ×2 (07:50→20:32)
[2021-12-05] MEDS ORDERED: INSULIN LISPRO 100 UNIT/ML SUBCUT SCH (08:00)
[2021-12-05] MEDS: NYSTATIN POWDER 15 GM BOTTLE TOP SCH ×2 (08:00→20:30)
[2021-12-05] MEDS: BISACODYL 5 MG TABLET PO SCH (08:00)
[2021-12-05] MEDS: PIPERACILLIN/TAZOBACTAM 3,375 MG in SODIUM CHLORIDE 0.9% 100 ML IV SCH ×2 (12:40→22:38)
[2021-12-05] MEDS: MIDAZOLAM 100 MG in SODIUM CHLORIDE 0.9% 80 ML IV PRN (18:15)
[2021-12-05] MEDS: TAMSULOSIN 0.4 MG CAPSULE PO SCH (20:30)
[2021-12-05] MEDS: ATORVASTATIN 40 MG TABLET PO SCH (20:30)
[2021-12-06] MEDS: ALBUTEROL/IPRATROPIUM 3 ML NEB RESP TX SCH ×5 (00:10→23:50)
[2021-12-06] MEDS: INSULIN LISPRO 100 UNIT/ML SUBCUT SCH ×4 (00:24→17:44)
[2021-12-06 03:23] LABS: ABG Base Excess 1.4 MMOL/L (-2.5-2.5); ABG HCO3 25.6 MMOL/L (20-26); ABG Oxygen Saturation 91.3 % (95-100); ABG PCO2 38.9 MM HG (35-48); ABG PH 7.429 (7.35-7.45); ABG PO2 59.6 MM HG (80-95); ABG TCO2 23.5 MMOL/L (23-27); Basophils # 0.1 10*3/uL (0.0-0.2); Basophils % 0.5 % (0.0-0.8); Eosinophils # 0.2 10*3/uL (0.0-0.87); Eosinophils % 2.1 % (0.00-10.9); Hematocrit 22.8 VOL% (42.0-52.0); Hemoglobin 7.2 GM/DL (14.0-18.0); Immature Granulocytes % 0.8 %; Immature Granulocytes Absolute 0.09 #; Lymphocytes # 0.6 10*3/uL (1.4-4.0); Lymphocytes % 5.3 % (21.2-54.2); Mean Corpuscular HGB Conc 31.6 GM/DL (32-36); Mean Corpuscular Volume 89.4 FL (87-102); Mean Platelet Volume 11.1 FL (9.6-12.0); Monocytes # 0.3 10*3/uL (0.11-0.8); Monocytes % 2.8 % (1.7-12.7); Neutrophils % 88.5 % (38.7-73.9); Platelet Count 166 T/CUMM (130-400); Red Blood Count 2.55 MC/CUMM (3.8-5.5); Red Cell Distribution Width 15.9 % (9.3-17.3); White Blood Count 11.5 T/CUMM (4-12)
[2021-12-06 03:43] LABS: Calcium 7.6 MG/DL (8.5-10.1); Osmolality,Calculated 294.3 MOS/KG (273-304); Potassium 4.2 MMOL/L (3.5-5.1)
[2021-12-06 03:46] LABS: Eosinophils 4 % (0-10); Hypochromia Slight; Lymphocytes 4 % (20-55); Microcytosis Slight; Ovalocytes Slight; Platelet Estimate Adequate; Total Cells Counted 100
[2021-12-06] MEDS ORDERED: MEROPENEM 500 MG in SODIUM CHLORIDE 0.9% 100 ML IV SCH (08:00)
[2021-12-06] MEDS: SUCRALFATE 1 GM/10 ML UDCUP PO SCH ×4 (08:38→20:06)
[2021-12-06] MEDS: CHOLECALCIFEROL 1,000 UNIT TABLET PO SCH (08:39)
[2021-12-06] MEDS: PANTOPRAZOLE 40 MG VIAL IV SCH ×2 (08:39→20:07)
[2021-12-06] MEDS: FERROUS SULFATE 325 MG TABLET PO SCH (08:39)
[2021-12-06] MEDS: ASCORBIC ACID 500 MG TABLET PO SCH (08:39)
[2021-12-06] MEDS: SODIUM BICARBONATE 650 MG TABLET PO SCH ×2 (08:39→20:07)
[2021-12-06] MEDS: NYSTATIN POWDER 15 GM BOTTLE TOP SCH ×2 (08:39→20:07)
[2021-12-06] MEDS: MEROPENEM 500 MG in SODIUM CHLORIDE 0.9% 100 ML IV SCH (08:40)
[2021-12-06] MEDS: BISACODYL 5 MG TABLET PO SCH (08:40)
[2021-12-06] MEDS ORDERED: VANCOMYCIN INJ 500 MG in SODIUM CHLORIDE 0.9% 100 ML IV ONE ×2 (09:00→17:00)
[2021-12-06] MEDS: fentaNYL INJ 1,250 MCG in SODIUM CHLORIDE 0.9% 225 ML IV PRN (17:46)
[2021-12-06] MEDS: ATORVASTATIN 40 MG TABLET PO SCH (20:06)
[2021-12-06] MEDS: TAMSULOSIN 0.4 MG CAPSULE PO SCH (20:07)
[2021-12-07] MEDS: INSULIN LISPRO 100 UNIT/ML SUBCUT SCH ×5 (00:21→23:19)
[2021-12-07 03:30] LABS: ABG Base Excess 3.8 MMOL/L (-2.5-2.5); ABG HCO3 27.8 MMOL/L (20-26); ABG Oxygen Saturation 96.7 % (95-100); ABG PCO2 36.7 MM HG (35-48); ABG PO2 83.4 MM HG (80-95); ABG TCO2 24.6 MMOL/L (23-27); Basophils % 0.3 % (0.0-0.8); Eosinophils # 0.4 10*3/uL (0.0-0.87); Eosinophils % 4.8 % (0.00-10.9); Hematocrit 22.1 VOL% (42.0-52.0); Hemoglobin 7.2 GM/DL (14.0-18.0); Immature Granulocytes % 2.2 %; Immature Granulocytes Absolute 0.19 #; Lymphocytes # 0.7 10*3/uL (1.4-4.0); Lymphocytes % 8.3 % (21.2-54.2); Mean Corpuscular HGB Conc 32.6 GM/DL (32-36); Mean Corpuscular Volume 86.7 FL (87-102); Mean Platelet Volume 10.8 FL (9.6-12.0); Monocytes # 0.3 10*3/uL (0.11-0.8); Neutrophils % 81.4 % (38.7-73.9); Platelet Count 147 T/CUMM (130-400); Red Blood Count 2.55 MC/CUMM (3.8-5.5); Red Cell Distribution Width 15.8 % (9.3-17.3); White Blood Count 8.6 T/CUMM (4-12)
[2021-12-07 03:44] LABS: Calcium 7.7 MG/DL (8.5-10.1); Osmolality,Calculated 288.4 MOS/KG (273-304); Potassium 3.9 MMOL/L (3.5-5.1)
[2021-12-07 04:07] LABS: Eosinophils 9 % (0-10); Lymphocytes 4 % (20-55); Platelet Estimate Adequate; Total Cells Counted 100
[2021-12-07] MEDS: fentaNYL INJ 1,250 MCG in SODIUM CHLORIDE 0.9% 225 ML IV PRN ×2 (06:00→18:22)
[2021-12-07] MEDS: ALBUTEROL/IPRATROPIUM 3 ML NEB RESP TX SCH ×3 (07:05→20:06)
[2021-12-07] MEDS: SUCRALFATE 1 GM/10 ML UDCUP PO SCH ×4 (08:38→20:09)
[2021-12-07] MEDS: FERROUS SULFATE 325 MG TABLET PO SCH (08:38)
[2021-12-07] MEDS: CHOLECALCIFEROL 1,000 UNIT TABLET PO SCH (08:38)
[2021-12-07] MEDS: SODIUM BICARBONATE 650 MG TABLET PO SCH ×2 (08:38→20:09)
[2021-12-07] MEDS: ASCORBIC ACID 500 MG TABLET PO SCH (08:38)
[2021-12-07] MEDS: PANTOPRAZOLE 40 MG VIAL IV SCH ×2 (08:38→20:10)
[2021-12-07] MEDS: BISACODYL 5 MG TABLET PO SCH (08:39)
[2021-12-07] MEDS: NYSTATIN POWDER 15 GM BOTTLE TOP SCH ×2 (08:39→20:10)
[2021-12-07] MEDS: MEROPENEM 500 MG in SODIUM CHLORIDE 0.9% 100 ML IV SCH (08:39)
[2021-12-07] MEDS ORDERED: DEXTROSE 50% 25 GM/50 ML SYRINGE IV ONE ×2 (11:28→13:57)
[2021-12-07] MEDS: DEXTROSE 50% 25 GM/50 ML SYRINGE IV PRN ×2 (11:30→17:35)
[2021-12-07] MEDS ORDERED: DEXTROSE 50% 25 GM/50 ML VIAL IV PRN ×2 (11:30→16:13)
[2021-12-07] MEDS ORDERED: VANCOMYCIN INJ 500 MG in SODIUM CHLORIDE 0.9% 100 ML IV ONE ×2 (17:00→19:00)
[2021-12-07] MEDS: ATORVASTATIN 40 MG TABLET PO SCH (20:09)
[2021-12-07] MEDS: TAMSULOSIN 0.4 MG CAPSULE PO SCH (20:10)
[2021-12-07] MEDS: ACETAMINOPHEN 325 MG TABLET PO PRN (20:14)
[2021-12-08] MEDS: fentaNYL INJ 1,250 MCG in SODIUM CHLORIDE 0.9% 225 ML IV PRN ×4 (00:31→20:35)
[2021-12-08] MEDS: ALBUTEROL/IPRATROPIUM 3 ML NEB RESP TX SCH ×5 (00:37→23:31)
[2021-12-08] MEDS: MIDAZOLAM 100 MG in SODIUM CHLORIDE 0.9% 80 ML IV PRN (02:14)
[2021-12-08 03:41] LABS: ABG Base Excess 3.5 MMOL/L (-2.5-2.5); ABG HCO3 27.3 MMOL/L (20-26); ABG Oxygen Saturation 88.9 % (95-100); ABG PCO2 48.2 MM HG (35-48); ABG PH 7.391 (7.35-7.45); ABG PO2 57.5 MM HG (80-95); ABG TCO2 26.1 MMOL/L (23-27)
[2021-12-08 03:42] LABS: Basophils % 0.3 % (0.0-0.8); Eosinophils # 0.4 10*3/uL (0.0-0.87); Eosinophils % 5.4 % (0.00-10.9); Hematocrit 22.5 VOL% (42.0-52.0); Hemoglobin 7.2 GM/DL (14.0-18.0); Immature Granulocytes % 0.3 %; Immature Granulocytes Absolute 0.02 #; Lymphocytes # 0.6 10*3/uL (1.4-4.0); Lymphocytes % 7.9 % (21.2-54.2); Mean Corpuscular Volume 88.2 FL (87-102); Mean Platelet Volume 11.7 FL (9.6-12.0); Monocytes # 0.3 10*3/uL (0.11-0.8); Monocytes % 3.9 % (1.7-12.7); Neutrophils % 82.2 % (38.7-73.9); Platelet Count 131 T/CUMM (130-400); Red Blood Count 2.55 MC/CUMM (3.8-5.5); Red Cell Distribution Width 15.9 % (9.3-17.3); White Blood Count 7.2 T/CUMM (4-12)
[2021-12-08 04:02] LABS: Calcium 7.8 MG/DL (8.5-10.1); Osmolality,Calculated 289.3 MOS/KG (273-304); Potassium 3.3 MMOL/L (3.5-5.1)
[2021-12-08 04:04] LABS: Eosinophils 7 % (0-10); Hypochromia Slight; Lymphocytes 6 % (20-55); Microcytosis Slight; Platelet Estimate Normal; Total Cells Counted 100
[2021-12-08] MEDS: INSULIN LISPRO 100 UNIT/ML SUBCUT SCH ×4 (05:46→23:32)
[2021-12-08] MEDS: PANTOPRAZOLE 40 MG VIAL IV SCH ×2 (09:00→20:28)
[2021-12-08] MEDS: BISACODYL 5 MG TABLET PO SCH (09:00)
[2021-12-08] MEDS: MEROPENEM 500 MG in SODIUM CHLORIDE 0.9% 100 ML IV SCH (09:05)
[2021-12-08] MEDS: FLUCONAZOLE INJ 200 MG/100 ML PREMIX IV SCH (09:05)
[2021-12-08] MEDS: CHOLECALCIFEROL 1,000 UNIT TABLET PO SCH (09:10)
[2021-12-08] MEDS: FERROUS SULFATE 325 MG TABLET PO SCH (09:10)
[2021-12-08] MEDS: ASCORBIC ACID 500 MG TABLET PO SCH (09:10)
[2021-12-08] MEDS: SODIUM BICARBONATE 650 MG TABLET PO SCH ×2 (09:10→20:28)
[2021-12-08] MEDS: SUCRALFATE 1 GM/10 ML UDCUP PO SCH ×4 (09:10→20:28)
[2021-12-08] MEDS: NYSTATIN POWDER 15 GM BOTTLE TOP SCH ×2 (09:20→20:28)
[2021-12-08] MEDS ORDERED: VANCOMYCIN INJ 500 MG in SODIUM CHLORIDE 0.9% 100 ML IV ONE ×2 (17:00→17:30)
[2021-12-08] MEDS ORDERED: EPOETIN ALFA-EPBX 10,000 UNIT/ML VIAL IV SCH (19:00)
[2021-12-08] MEDS: ATORVASTATIN 40 MG TABLET PO SCH (20:28)
[2021-12-08] MEDS: TAMSULOSIN 0.4 MG CAPSULE PO SCH (20:28)
[2021-12-08 23:28] LABS: Basophils % 0.1 % (0.0-0.8); Eosinophils # 0.4 10*3/uL (0.0-0.87); Eosinophils % 4.5 % (0.00-10.9); Hematocrit 22.3 VOL% (42.0-52.0); Immature Granulocytes % 0.4 %; Immature Granulocytes Absolute 0.04 #; Lymphocytes # 0.6 10*3/uL (1.4-4.0); Lymphocytes % 6.6 % (21.2-54.2); Mean Corpuscular HGB Conc 31.4 GM/DL (32-36); Mean Corpuscular Volume 89.6 FL (87-102); Mean Platelet Volume 10.8 FL (9.6-12.0); Monocytes # 0.3 10*3/uL (0.11-0.8); Monocytes % 3.2 % (1.7-12.7); Neutrophils % 85.2 % (38.7-73.9); Platelet Count 128 T/CUMM (130-400); Red Blood Count 2.49 MC/CUMM (3.8-5.5); Red Cell Distribution Width 16.4 % (9.3-17.3); White Blood Count 9.1 T/CUMM (4-12)
[2021-12-08 23:42] LABS: Alanine Aminotransferase 40 U/L (16-61); Albumin 1.4 G/DL (3.4-5.0); Alkaline Phosphatase 165 U/L (45-117); Aspartate Amino Transferase 35 U/L (0-37); Bilirubin,Total < 0.39 MG/DL (0.20-1.00); Blood Urea Nitrogen 26 MG/DL (7-18); Calcium 7.7 MG/DL (8.5-10.1); Carbon Dioxide 28 MMOL/L (21-32); Chloride 106 MMOL/L (98-107); Glucose 138 MG/DL (74-106); Osmolality,Calculated 287.3 MOS/KG (273-304); Potassium 3.3 MMOL/L (3.5-5.1); Sodium 141 MMOL/L (136-145); Total Protein 5.1 G/DL (6.4-8.2)
[2021-12-09 01:34] LABS: Eosinophils 6 % (0-10); Lymphocytes 6 % (20-55); Nucleated Red Blood Cells 1 (0-5); Total Cells Counted 100
[2021-12-09 01:35] LABS: Platelet Estimate Adequate
[2021-12-09 01:36] LABS: Hypochromia Slight; Microcytosis Slight
[2021-12-09] MEDS ORDERED: SODIUM CHLORIDE 0.9% 250 ML IV ONE (01:36)
[2021-12-09] MEDS: fentaNYL INJ 1,250 MCG in SODIUM CHLORIDE 0.9% 225 ML IV PRN ×3 (03:41→20:08)
[2021-12-09 03:43] LABS: ABG Base Excess 4.6 MMOL/L (-2.5-2.5); ABG HCO3 28.5 MMOL/L (20-26); ABG Oxygen Saturation 90.9 % (95-100); ABG PCO2 50.4 MM HG (35-48); ABG PH 7.387 (7.35-7.45); ABG TCO2 28.6 MMOL/L (23-27)
[2021-12-09 03:49] LABS: Basophils % 0.2 % (0.0-0.8); Eosinophils # 0.5 10*3/uL (0.0-0.87); Eosinophils % 5.2 % (0.00-10.9); Hematocrit 22.5 VOL% (42.0-52.0); Immature Granulocytes % 0.5 %; Immature Granulocytes Absolute 0.05 #; Lymphocytes # 0.6 10*3/uL (1.4-4.0); Lymphocytes % 6.8 % (21.2-54.2); Mean Corpuscular HGB Conc 31.1 GM/DL (32-36); Mean Corpuscular Volume 89.3 FL (87-102); Mean Platelet Volume 11.6 FL (9.6-12.0); Monocytes # 0.5 10*3/uL (0.11-0.8); Monocytes % 4.8 % (1.7-12.7); NRBC # 0.03 10*3/uL; Neutrophils % 82.5 % (38.7-73.9); Platelet Count 132 T/CUMM (130-400); Red Blood Count 2.52 MC/CUMM (3.8-5.5); Red Cell Distribution Width 16.4 % (9.3-17.3); White Blood Count 9.5 T/CUMM (4-12)
[2021-12-09 04:01] LABS: Calcium 7.8 MG/DL (8.5-10.1); Osmolality,Calculated 287.1 MOS/KG (273-304); Potassium 3.4 MMOL/L (3.5-5.1)
[2021-12-09 04:12] LABS: Band Neutrophils 5 % (0-10); Eosinophils 7 % (0-10); Hypochromia 1+; Lymphocytes 5 % (20-55); Nucleated Red Blood Cells 1 (0-5); Total Cells Counted 100
[2021-12-09 04:13] LABS: Acanthocytes Few; Microcytosis 1+
[2021-12-09 04:14] LABS: Platelet Estimate Adequate
[2021-12-09] MEDS: INSULIN LISPRO 100 UNIT/ML SUBCUT SCH ×4 (05:59→23:18)
[2021-12-09] MEDS: ALBUTEROL/IPRATROPIUM 3 ML NEB RESP TX SCH ×4 (07:15→23:37)
[2021-12-09] MEDS: NYSTATIN POWDER 15 GM BOTTLE TOP SCH ×2 (08:15→20:09)
[2021-12-09] MEDS: BISACODYL 5 MG TABLET PO SCH (09:00)
[2021-12-09] MEDS: PANTOPRAZOLE 40 MG VIAL IV SCH ×2 (09:05→20:09)
[2021-12-09] MEDS: MEROPENEM 500 MG in SODIUM CHLORIDE 0.9% 100 ML IV SCH (09:05)
[2021-12-09] MEDS: FLUCONAZOLE INJ 200 MG/100 ML PREMIX IV SCH (09:05)
[2021-12-09] MEDS: FERROUS SULFATE 325 MG TABLET PO SCH (09:10)
[2021-12-09] MEDS: CHOLECALCIFEROL 1,000 UNIT TABLET PO SCH (09:10)
[2021-12-09] MEDS: SUCRALFATE 1 GM/10 ML UDCUP PO SCH ×4 (09:10→20:09)
[2021-12-09] MEDS: ASCORBIC ACID 500 MG TABLET PO SCH (09:10)
[2021-12-09] MEDS: SODIUM BICARBONATE 650 MG TABLET PO SCH ×2 (09:10→20:09)
[2021-12-09] MEDS: DOCUSATE SODIUM 100 MG/10 ML UDCUP PO SCH ×2 (11:50→20:09)
[2021-12-09] MEDS ORDERED: VANCOMYCIN INJ 500 MG in SODIUM CHLORIDE 0.9% 100 ML IV ONE (17:00)
[2021-12-09] MEDS: TAMSULOSIN 0.4 MG CAPSULE PO SCH (20:09)
[2021-12-09] MEDS: ATORVASTATIN 40 MG TABLET PO SCH (20:09)
[2021-12-10] MEDS: fentaNYL INJ 1,250 MCG in SODIUM CHLORIDE 0.9% 225 ML IV PRN ×3 (03:51→20:15)
[2021-12-10] MEDS: ACETAMINOPHEN 325 MG TABLET PO PRN (03:52)
[2021-12-10 03:57] LABS: Basophils % 0.2 % (0.0-0.8); Eosinophils # 0.4 10*3/uL (0.0-0.87); Eosinophils % 2.9 % (0.00-10.9); Hematocrit 25.7 VOL% (42.0-52.0); Hemoglobin 8.2 GM/DL (14.0-18.0); Immature Granulocytes % 0.7 %; Lymphocytes # 0.8 10*3/uL (1.4-4.0); Mean Corpuscular HGB Conc 31.9 GM/DL (32-36); Mean Corpuscular Volume 88.6 FL (87-102); Mean Platelet Volume 12.2 FL (9.6-12.0); Monocytes # 0.5 10*3/uL (0.11-0.8); Monocytes % 3.7 % (1.7-12.7); NRBC # 0.05 10*3/uL; Neutrophils % 86.5 % (38.7-73.9); Platelet Count 140 T/CUMM (130-400); Red Cell Distribution Width 16.4 % (9.3-17.3); White Blood Count 13.6 T/CUMM (4-12)
[2021-12-10 04:03] LABS: ABG Base Excess 5.8 MMOL/L (-2.5-2.5); ABG HCO3 29.6 MMOL/L (20-26); ABG Oxygen Saturation 95.1 % (95-100); ABG PO2 68.8 MM HG (80-95); ABG TCO2 28.3 MMOL/L (23-27)
[2021-12-10 04:10] LABS: Calcium 7.7 MG/DL (8.5-10.1); Osmolality,Calculated 289.3 MOS/KG (273-304); Potassium 3.3 MMOL/L (3.5-5.1)
[2021-12-10 04:16] LABS: Band Neutrophils 1 % (0-10); Eosinophils 7 % (0-10); Lymphocytes 4 % (20-55); Nucleated Red Blood Cells 2 (0-5); Total Cells Counted 100
[2021-12-10 04:17] LABS: Hypochromia Slight; Microcytosis 1+; Target Cells Slight
[2021-12-10 04:18] LABS: Platelet Estimate Adequate
[2021-12-10] MEDS: INSULIN LISPRO 100 UNIT/ML SUBCUT SCH ×3 (05:34→18:38)
[2021-12-10] MEDS: ALBUTEROL/IPRATROPIUM 3 ML NEB RESP TX SCH ×3 (07:00→19:35)
[2021-12-10] MEDS: MEROPENEM 500 MG in SODIUM CHLORIDE 0.9% 100 ML IV SCH (07:32)
[2021-12-10] MEDS: SUCRALFATE 1 GM/10 ML UDCUP PO SCH ×4 (07:32→21:02)
[2021-12-10] MEDS: FLUCONAZOLE INJ 200 MG/100 ML PREMIX IV SCH (07:32)
[2021-12-10] MEDS: DOCUSATE SODIUM 100 MG/10 ML UDCUP PO SCH ×2 (08:40→21:02)
[2021-12-10] MEDS: ASCORBIC ACID 500 MG TABLET PO SCH (08:40)
[2021-12-10] MEDS: FERROUS SULFATE 325 MG TABLET PO SCH (08:40)
[2021-12-10] MEDS: SODIUM BICARBONATE 650 MG TABLET PO SCH ×2 (08:41→21:02)
[2021-12-10] MEDS: CHOLECALCIFEROL 1,000 UNIT TABLET PO SCH (08:41)
[2021-12-10] MEDS: NYSTATIN POWDER 15 GM BOTTLE TOP SCH (08:41)
[2021-12-10] MEDS: PANTOPRAZOLE 40 MG VIAL IV SCH ×2 (08:42→20:59)
[2021-12-10] MEDS: MIDAZOLAM 100 MG in SODIUM CHLORIDE 0.9% 80 ML IV PRN (15:40)
[2021-12-10] MEDS: ATORVASTATIN 40 MG TABLET PO SCH (21:02)
[2021-12-10] MEDS: TAMSULOSIN 0.4 MG CAPSULE PO SCH (21:02)
[2021-12-11] MEDS: ALBUTEROL/IPRATROPIUM 3 ML NEB RESP TX SCH ×4 (00:13→18:46)
[2021-12-11] MEDS: INSULIN LISPRO 100 UNIT/ML SUBCUT SCH ×5 (00:34→23:56)
[2021-12-11] MEDS: NYSTATIN POWDER 15 GM BOTTLE TOP SCH ×3 (00:39→21:01)
[2021-12-11 04:34] LABS: ABG Oxygen Saturation 98.6 % (95-100); ABG PCO2 49.1 MM HG (35-48); ABG PH 7.388 (7.35-7.45); ABG TCO2 27.7 MMOL/L (23-27)
[2021-12-11 04:39] LABS: Basophils % 0.3 % (0.0-0.8); Eosinophils # 0.3 10*3/uL (0.0-0.87); Eosinophils % 1.7 % (0.00-10.9); Hemoglobin 7.8 GM/DL (14.0-18.0); Immature Granulocytes % 0.7 %; Immature Granulocytes Absolute 0.11 #; Lymphocytes # 0.8 10*3/uL (1.4-4.0); Lymphocytes % 5.3 % (21.2-54.2); Mean Corpuscular HGB Conc 31.2 GM/DL (32-36); Mean Corpuscular Volume 90.6 FL (87-102); Mean Platelet Volume 12.1 FL (9.6-12.0); Monocytes # 0.7 10*3/uL (0.11-0.8); Monocytes % 4.5 % (1.7-12.7); NRBC # 0.04 10*3/uL; Neutrophils % 87.5 % (38.7-73.9); Platelet Count 154 T/CUMM (130-400); Red Blood Count 2.76 MC/CUMM (3.8-5.5); Red Cell Distribution Width 16.9 % (9.3-17.3); White Blood Count 14.9 T/CUMM (4-12)
[2021-12-11 04:51] LABS: Calcium 7.7 MG/DL (8.5-10.1); Osmolality,Calculated 292.1 MOS/KG (273-304); Potassium 3.5 MMOL/L (3.5-5.1)
[2021-12-11 05:07] LABS: Hypochromia 1+; Lymphocytes 1 % (20-55); Microcytosis 1+; Total Cells Counted 100
[2021-12-11 05:08] LABS: Platelet Estimate Adequate
[2021-12-11] MEDS: fentaNYL INJ 1,250 MCG in SODIUM CHLORIDE 0.9% 225 ML IV PRN ×3 (06:01→23:43)
[2021-12-11] MEDS: SODIUM BICARBONATE 650 MG TABLET PO SCH ×2 (08:21→21:01)
[2021-12-11] MEDS: DOCUSATE SODIUM 100 MG/10 ML UDCUP PO SCH ×2 (08:21→21:01)
[2021-12-11] MEDS: PANTOPRAZOLE 40 MG VIAL IV SCH ×2 (08:21→21:05)
[2021-12-11] MEDS: SUCRALFATE 1 GM/10 ML UDCUP PO SCH ×4 (08:21→21:01)
[2021-12-11] MEDS: FERROUS SULFATE 325 MG TABLET PO SCH (08:22)
[2021-12-11] MEDS: FLUCONAZOLE INJ 200 MG/100 ML PREMIX IV SCH (08:22)
[2021-12-11] MEDS: MEROPENEM 500 MG in SODIUM CHLORIDE 0.9% 100 ML IV SCH (08:22)
[2021-12-11] MEDS: CHOLECALCIFEROL 1,000 UNIT TABLET PO SCH (08:22)
[2021-12-11] MEDS: ASCORBIC ACID 500 MG TABLET PO SCH (08:22)
[2021-12-11] MEDS ORDERED: MORPHINE 2 MG/1 ML SYRINGE IV ONE (09:30)
[2021-12-11] MEDS ORDERED: MIDAZOLAM 2 MG/2 ML VIAL IV ONE (09:30)
[2021-12-11] MEDS ORDERED: METOPROLOL TARTRATE 5 MG/5 ML VIAL IV ONE (09:59)
[2021-12-11] MEDS: MORPHINE 2 MG/1 ML SYRINGE IV PRN (15:10)
[2021-12-11] MEDS: ACETAMINOPHEN 325 MG TABLET PO PRN (16:50)
[2021-12-11] MEDS: ATORVASTATIN 40 MG TABLET PO SCH (21:02)
[2021-12-11] MEDS: TAMSULOSIN 0.4 MG CAPSULE PO SCH (21:02)
[2021-12-12] MEDS: ALBUTEROL/IPRATROPIUM 3 ML NEB RESP TX SCH ×4 (00:32→18:49)
[2021-12-12] MEDS: INSULIN LISPRO 100 UNIT/ML SUBCUT SCH ×3 (05:45→18:24)
[2021-12-12 06:00] LABS: ABG Base Excess 4.6 MMOL/L (-2.5-2.5); ABG HCO3 28.6 MMOL/L (20-26); ABG Oxygen Saturation 98.4 % (95-100); ABG PCO2 45.8 MM HG (35-48); ABG PH 7.419 (7.35-7.45); ABG TCO2 27.5 MMOL/L (23-27)
[2021-12-12 06:03] LABS: Basophils # 0.1 10*3/uL (0.0-0.2); Basophils % 0.3 % (0.0-0.8); Eosinophils # 0.4 10*3/uL (0.0-0.87); Eosinophils % 2.7 % (0.00-10.9); Hematocrit 26.2 VOL% (42.0-52.0); Hemoglobin 8.2 GM/DL (14.0-18.0); Immature Granulocytes % 1.8 %; Immature Granulocytes Absolute 0.28 #; Lymphocytes # 0.7 10*3/uL (1.4-4.0); Lymphocytes % 4.6 % (21.2-54.2); Mean Corpuscular HGB Conc 31.3 GM/DL (32-36); Mean Platelet Volume 11.9 FL (9.6-12.0); Monocytes # 0.7 10*3/uL (0.11-0.8); Monocytes % 4.3 % (1.7-12.7); NRBC # 0.16 10*3/uL; Neutrophils % 86.3 % (38.7-73.9); Platelet Count 208 T/CUMM (130-400); Red Blood Count 2.91 MC/CUMM (3.8-5.5)
[2021-12-12 06:16] LABS: Calcium 7.7 MG/DL (8.5-10.1); Osmolality,Calculated 290.3 MOS/KG (273-304); Potassium 3.5 MMOL/L (3.5-5.1)
[2021-12-12 06:21] LABS: Band Neutrophils 1 % (0-10); Eosinophils 4 % (0-10); Hypochromia Slight; Lymphocytes 3 % (20-55); Myelocytes 1 %; Total Cells Counted 100
[2021-12-12 06:22] LABS: Microcytosis 1+; Platelet Estimate Normal
[2021-12-12] MEDS: MIDAZOLAM 100 MG in SODIUM CHLORIDE 0.9% 80 ML IV PRN (08:01)
[2021-12-12] MEDS: fentaNYL INJ 1,250 MCG in SODIUM CHLORIDE 0.9% 225 ML IV PRN ×2 (08:47→17:56)
[2021-12-12] MEDS: SODIUM BICARBONATE 650 MG TABLET PO SCH ×2 (08:56→20:40)
[2021-12-12] MEDS: NYSTATIN POWDER 15 GM BOTTLE TOP SCH ×2 (08:56→20:42)
[2021-12-12] MEDS: ASCORBIC ACID 500 MG TABLET PO SCH (08:56)
[2021-12-12] MEDS: DOCUSATE SODIUM 100 MG/10 ML UDCUP PO SCH ×2 (08:56→20:40)
[2021-12-12] MEDS: SUCRALFATE 1 GM/10 ML UDCUP PO SCH ×4 (08:56→20:40)
[2021-12-12] MEDS: CHOLECALCIFEROL 1,000 UNIT TABLET PO SCH (08:56)
[2021-12-12] MEDS: FERROUS SULFATE 325 MG TABLET PO SCH (08:56)
[2021-12-12] MEDS ORDERED: VANCOMYCIN INJ 500 MG in SODIUM CHLORIDE 0.9% 100 ML IV ONE ×2 (09:00→21:00)
[2021-12-12] MEDS: FLUCONAZOLE INJ 200 MG/100 ML PREMIX IV SCH (09:08)
[2021-12-12] MEDS: PANTOPRAZOLE 40 MG VIAL IV SCH ×2 (09:09→20:39)
[2021-12-12] MEDS: MEROPENEM 500 MG in SODIUM CHLORIDE 0.9% 100 ML IV SCH (09:10)
[2021-12-12] MEDS: cefTRIAXone 1,000 MG in SODIUM CHLORIDE 0.9% 100 ML IV SCH (12:22)
[2021-12-12] MEDS: ACETAMINOPHEN 325 MG TABLET PO PRN (15:40)
[2021-12-12] MEDS: ATORVASTATIN 40 MG TABLET PO SCH (20:41)
[2021-12-12] MEDS: TAMSULOSIN 0.4 MG CAPSULE PO SCH (20:42)
[2021-12-13] MEDS: INSULIN LISPRO 100 UNIT/ML SUBCUT SCH ×4 (00:25→19:00)
[2021-12-13] MEDS: ALBUTEROL/IPRATROPIUM 3 ML NEB RESP TX SCH ×4 (00:31→20:18)
[2021-12-13] MEDS: fentaNYL INJ 1,250 MCG in SODIUM CHLORIDE 0.9% 225 ML IV PRN ×3 (03:14→21:06)
[2021-12-13 04:50] LABS: ABG Base Excess 4.4 MMOL/L (-2.5-2.5); ABG HCO3 28.4 MMOL/L (20-26); ABG Oxygen Saturation 97.8 % (95-100); ABG PCO2 49.7 MM HG (35-48); ABG PO2 96.9 MM HG (80-95); ABG TCO2 28.1 MMOL/L (23-27)
[2021-12-13 04:56] LABS: Basophils # 0.1 10*3/uL (0.0-0.2); Basophils % 0.5 % (0.0-0.8); Eosinophils # 0.4 10*3/uL (0.0-0.87); Eosinophils % 2.8 % (0.00-10.9); Hematocrit 25.8 VOL% (42.0-52.0); Immature Granulocytes % 1.8 %; Immature Granulocytes Absolute 0.26 #; Lymphocytes # 0.8 10*3/uL (1.4-4.0); Lymphocytes % 5.5 % (21.2-54.2); Mean Corpuscular Volume 90.5 FL (87-102); Mean Platelet Volume 11.7 FL (9.6-12.0); Monocytes # 0.8 10*3/uL (0.11-0.8); Monocytes % 5.7 % (1.7-12.7); NRBC # 0.23 10*3/uL; Neutrophils % 83.7 % (38.7-73.9); Platelet Count 262 T/CUMM (130-400); Red Blood Count 2.85 MC/CUMM (3.8-5.5); Red Cell Distribution Width 16.9 % (9.3-17.3); White Blood Count 14.2 T/CUMM (4-12)
[2021-12-13 05:13] LABS: Calcium 7.6 MG/DL (8.5-10.1); Osmolality,Calculated 287.3 MOS/KG (273-304); Potassium 3.4 MMOL/L (3.5-5.1)
[2021-12-13 05:20] LABS: Hypochromia Slight; Lymphocytes 4 % (20-55); Microcytosis Slight; Platelet Estimate Adequate; Total Cells Counted 100
[2021-12-13 06:09] VITALS: BP 119/45
[2021-12-13] MEDS: SUCRALFATE 1 GM/10 ML UDCUP PO SCH ×4 (09:25→21:23)
[2021-12-13] MEDS: DOCUSATE SODIUM 100 MG/10 ML UDCUP PO SCH ×2 (09:26→21:23)
[2021-12-13] MEDS: SODIUM BICARBONATE 650 MG TABLET PO SCH ×2 (09:26→21:23)
[2021-12-13] MEDS: FERROUS SULFATE 325 MG TABLET PO SCH (09:26)
[2021-12-13] MEDS: CHOLECALCIFEROL 1,000 UNIT TABLET PO SCH (09:26)
[2021-12-13] MEDS: ASCORBIC ACID 500 MG TABLET PO SCH (09:27)
[2021-12-13] MEDS: FLUCONAZOLE INJ 200 MG/100 ML PREMIX IV SCH (09:29)
[2021-12-13] MEDS: PANTOPRAZOLE 40 MG VIAL IV SCH ×2 (09:29→21:21)
[2021-12-13] MEDS: NYSTATIN POWDER 15 GM BOTTLE TOP SCH ×2 (09:33→21:39)
[2021-12-13 10:06] LABS: Hepatitis B Core IgM Quant < 0.05 Index; Hepatitis B Surface Ag Quant < 0.10 Index; Hepatitis B Surface Ag Result Non-Reactive (NonReactive); Hepatitis C Virus Ab Quant 0.15 Index; Hepatitis C Virus Ab Result Non-Reactive (NonReactive)
[2021-12-13] MEDS: cefTRIAXone 1,000 MG in SODIUM CHLORIDE 0.9% 100 ML IV SCH (15:00)
[2021-12-13] MEDS: HEPARIN 5,000 UNIT/1 ML VIAL SUBCUT SCH (15:01)
[2021-12-13] MEDS: carvediloL 12.5 MG TABLET PO SCH ×2 (15:01→21:23)
[2021-12-13] MEDS ORDERED: VANCOMYCIN INJ 500 MG in SODIUM CHLORIDE 0.9% 100 ML IV ONE (17:00)
[2021-12-13] MEDS: ATORVASTATIN 40 MG TABLET PO SCH (21:23)
[2021-12-13] MEDS: TAMSULOSIN 0.4 MG CAPSULE PO SCH (21:24)
[2021-12-14] MEDS: INSULIN LISPRO 100 UNIT/ML SUBCUT SCH ×5 (00:27→23:38)
[2021-12-14] MEDS: ALBUTEROL/IPRATROPIUM 3 ML NEB RESP TX SCH ×4 (01:03→19:10)
[2021-12-14] MEDS: HEPARIN 5,000 UNIT/1 ML VIAL SUBCUT SCH ×2 (03:10→14:00)
[2021-12-14 04:39] LABS: Basophils # 0.1 10*3/uL (0.0-0.2); Basophils % 0.4 % (0.0-0.8); Eosinophils # 0.5 10*3/uL (0.0-0.87); Eosinophils % 3.6 % (0.00-10.9); Hematocrit 25.4 VOL% (42.0-52.0); Hemoglobin 7.8 GM/DL (14.0-18.0); Immature Granulocytes % 2.7 %; Immature Granulocytes Absolute 0.38 #; Mean Corpuscular HGB Conc 30.7 GM/DL (32-36); Mean Corpuscular Volume 91.7 FL (87-102); Mean Platelet Volume 11.4 FL (9.6-12.0); Monocytes # 0.9 10*3/uL (0.11-0.8); NRBC # 0.26 10*3/uL; Neutrophils % 80.3 % (38.7-73.9); Platelet Count 326 T/CUMM (130-400); Red Blood Count 2.77 MC/CUMM (3.8-5.5); Red Cell Distribution Width 16.9 % (9.3-17.3); White Blood Count 14.2 T/CUMM (4-12)
[2021-12-14 04:41] LABS: ABG Base Excess 4.7 MMOL/L (-2.5-2.5); ABG HCO3 28.7 MMOL/L (20-26); ABG Oxygen Saturation 97.8 % (95-100); ABG PCO2 48.2 MM HG (35-48); ABG PH 7.404 (7.35-7.45); ABG PO2 93.8 MM HG (80-95); ABG TCO2 28.1 MMOL/L (23-27)
[2021-12-14 04:57] LABS: Band Neutrophils 1 % (0-10); Eosinophils 6 % (0-10); Hypochromia Slight; Lymphocytes 7 % (20-55); Microcytosis Slight; Nucleated Red Blood Cells 3 /100 WBC (0-5); Platelet Estimate Adequate; Total Cells Counted 100
[2021-12-14 05:00] LABS: Calcium 7.8 MG/DL (8.5-10.1); Osmolality,Calculated 288.4 MOS/KG (273-304); Potassium 3.5 MMOL/L (3.5-5.1)
[2021-12-14] MEDS: MIDAZOLAM 100 MG in SODIUM CHLORIDE 0.9% 80 ML IV PRN (07:57)
[2021-12-14] MEDS: fentaNYL INJ 1,250 MCG in SODIUM CHLORIDE 0.9% 225 ML IV PRN (07:57)
[2021-12-14] MEDS: CHOLECALCIFEROL 1,000 UNIT TABLET PO SCH (09:36)
[2021-12-14] MEDS: ASCORBIC ACID 500 MG TABLET PO SCH (09:36)
[2021-12-14] MEDS: FERROUS SULFATE 325 MG TABLET PO SCH (09:37)
[2021-12-14] MEDS: SUCRALFATE 1 GM/10 ML UDCUP PO SCH ×4 (09:37→20:48)
[2021-12-14] MEDS: DOCUSATE SODIUM 100 MG/10 ML UDCUP PO SCH ×2 (09:37→20:48)
[2021-12-14] MEDS: SODIUM BICARBONATE 650 MG TABLET PO SCH ×2 (09:37→20:48)
[2021-12-14] MEDS: methylPREDNISolone SOD SUC 40 MG/1 ML VIAL IV SCH ×3 (09:39→23:46)
[2021-12-14] MEDS: PANTOPRAZOLE 40 MG VIAL IV SCH ×2 (09:40→20:47)
[2021-12-14] MEDS: FLUCONAZOLE INJ 200 MG/100 ML PREMIX IV SCH (09:40)
[2021-12-14] MEDS: NYSTATIN POWDER 15 GM BOTTLE TOP SCH ×2 (09:41→20:49)
[2021-12-14] MEDS: carvediloL 12.5 MG TABLET PO SCH ×2 (11:07→20:48)
[2021-12-14] MEDS: cefTRIAXone 1,000 MG in SODIUM CHLORIDE 0.9% 100 ML IV SCH (11:22)
[2021-12-14] MEDS ORDERED: VANCOMYCIN INJ 500 MG in SODIUM CHLORIDE 0.9% 100 ML IV ONE (17:00)
[2021-12-14] MEDS: TAMSULOSIN 0.4 MG CAPSULE PO SCH (20:48)
[2021-12-14] MEDS: ATORVASTATIN 40 MG TABLET PO SCH (20:48)
[2021-12-15] MEDS: ALBUTEROL/IPRATROPIUM 3 ML NEB RESP TX SCH ×4 (00:15→19:45)
[2021-12-15] MEDS: HEPARIN 5,000 UNIT/1 ML VIAL SUBCUT SCH ×2 (02:19→14:14)
[2021-12-15 04:02] LABS: Arterial Base Excess iSTAT 5 MMOL/L (-2.5-2.5); Arterial Bicarbonate iSTAT 29.4 MMOL/L (20-26); Arterial O2 Saturation iSTAT 99 % (95-100); Arterial PCO2 iSTAT 42 MM HG (35-48); Arterial PO2 iSTAT 114 MM HG (80-95); Arterial Total CO2 iSTAT 31 MMO/L (23-27); Arterial pH iSTAT 7.451 (7.35-7.45)
[2021-12-15 04:40] LABS: Basophils % 0.2 % (0.0-0.8); Hematocrit 25.9 VOL% (42.0-52.0); Hemoglobin 8.1 GM/DL (14.0-18.0); Immature Granulocytes % 3.3 %; Immature Granulocytes Absolute 0.58 #; Lymphocytes # 0.8 10*3/uL (1.4-4.0); Lymphocytes % 4.5 % (21.2-54.2); Mean Corpuscular HGB Conc 31.3 GM/DL (32-36); Mean Corpuscular Volume 89.6 FL (87-102); Mean Platelet Volume 11.6 FL (9.6-12.0); Monocytes # 0.3 10*3/uL (0.11-0.8); Monocytes % 1.7 % (1.7-12.7); Neutrophils % 90.3 % (38.7-73.9); Platelet Count 432 T/CUMM (130-400); Red Blood Count 2.89 MC/CUMM (3.8-5.5); Red Cell Distribution Width 16.8 % (9.3-17.3); White Blood Count 17.8 T/CUMM (4-12)
[2021-12-15 05:01] LABS: Hypochromia Slight; Lymphocytes 2 % (20-55); Microcytosis Slight; Nucleated Red Blood Cells 1 /100 WBC (0-5); Platelet Estimate Adequate; Total Cells Counted 100
[2021-12-15 05:25] LABS: Osmolality,Calculated 291.7 MOS/KG (273-304)
[2021-12-15] MEDS: INSULIN LISPRO 100 UNIT/ML SUBCUT SCH ×4 (05:53→23:32)
[2021-12-15] MEDS: FERROUS SULFATE 325 MG TABLET PO SCH (08:02)
[2021-12-15] MEDS: ASCORBIC ACID 500 MG TABLET PO SCH (08:02)
[2021-12-15] MEDS: CHOLECALCIFEROL 1,000 UNIT TABLET PO SCH (08:02)
[2021-12-15] MEDS: DOCUSATE SODIUM 100 MG/10 ML UDCUP PO SCH ×2 (08:02→21:49)
[2021-12-15] MEDS: PANTOPRAZOLE 40 MG VIAL IV SCH ×2 (08:02→21:47)
[2021-12-15] MEDS: SODIUM BICARBONATE 650 MG TABLET PO SCH ×2 (08:02→21:47)
[2021-12-15] MEDS: carvediloL 12.5 MG TABLET PO SCH ×2 (08:03→21:48)
[2021-12-15] MEDS: SUCRALFATE 1 GM/10 ML UDCUP PO SCH ×2 (08:03→12:11)
[2021-12-15] MEDS: FLUCONAZOLE INJ 200 MG/100 ML PREMIX IV SCH (08:03)
[2021-12-15] MEDS: methylPREDNISolone SOD SUC 40 MG/1 ML VIAL IV SCH ×3 (08:05→23:34)
[2021-12-15] MEDS: fentaNYL INJ 1,250 MCG in SODIUM CHLORIDE 0.9% 225 ML IV PRN (08:05)
[2021-12-15] MEDS: NYSTATIN POWDER 15 GM BOTTLE TOP SCH ×2 (08:15→21:52)
[2021-12-15] MEDS: INSULIN GLARGINE 100 UNIT/ML SUBCUT SCH (09:27)
[2021-12-15] MEDS ORDERED: POTASSIUM PHOSPHATE 30 MMOL in SODIUM CHLORIDE 0.9% 250 ML IV ONE (11:00)
[2021-12-15] MEDS: cefTRIAXone 1,000 MG in SODIUM CHLORIDE 0.9% 100 ML IV SCH (12:11)
[2021-12-15] MEDS ORDERED: VANCOMYCIN INJ 500 MG in SODIUM CHLORIDE 0.9% 100 ML IV ONE (17:00)
[2021-12-15] MEDS: TAMSULOSIN 0.4 MG CAPSULE PO SCH (21:48)
[2021-12-15] MEDS: ATORVASTATIN 40 MG TABLET PO SCH (21:48)
[2021-12-15] MEDS: ZINC OXIDE 16% PASTE 57 GM TUBE TOP SCH (21:49)
[2021-12-16] MEDS: ALBUTEROL/IPRATROPIUM 3 ML NEB RESP TX SCH ×4 (00:20→18:52)
[2021-12-16 03:59] LABS: Arterial Base Excess iSTAT 4 MMOL/L (-2.5-2.5); Arterial Bicarbonate iSTAT 26.9 MMOL/L (20-26); Arterial O2 Saturation iSTAT 94 % (95-100); Arterial PCO2 iSTAT 32 MM HG (35-48); Arterial PO2 iSTAT 61 MM HG (80-95); Arterial Total CO2 iSTAT 28 MMO/L (23-27); Arterial pH iSTAT 7.528 (7.35-7.45)
[2021-12-16 04:57] LABS: Basophils % 0.2 % (0.0-0.8); Hematocrit 26.9 VOL% (42.0-52.0); Hemoglobin 8.3 GM/DL (14.0-18.0); Immature Granulocytes % 2.7 %; Immature Granulocytes Absolute 0.65 #; Lymphocytes # 1.2 10*3/uL (1.4-4.0); Lymphocytes % 4.9 % (21.2-54.2); Mean Corpuscular HGB Conc 30.9 GM/DL (32-36); Mean Corpuscular Volume 88.5 FL (87-102); Mean Platelet Volume 11.1 FL (9.6-12.0); Monocytes # 0.6 10*3/uL (0.11-0.8); Monocytes % 2.5 % (1.7-12.7); NRBC # 0.64 10*3/uL; Neutrophils % 89.7 % (38.7-73.9); Platelet Count 551 T/CUMM (130-400); Red Blood Count 3.04 MC/CUMM (3.8-5.5); Red Cell Distribution Width 16.4 % (9.3-17.3); White Blood Count 23.9 T/CUMM (4-12)
[2021-12-16 05:10] LABS: Osmolality,Calculated 289.7 MOS/KG (273-304); Potassium 4.1 MMOL/L (3.5-5.1)
[2021-12-16 05:22] LABS: Lymphocytes 3 % (20-55); Nucleated Red Blood Cells 6 /100 WBC (0-5); Platelet Estimate Increased; Total Cells Counted 100
[2021-12-16] MEDS: HEPARIN 5,000 UNIT/1 ML VIAL SUBCUT SCH ×2 (05:30→13:08)
[2021-12-16] MEDS: INSULIN LISPRO 100 UNIT/ML SUBCUT SCH ×3 (06:29→17:46)
[2021-12-16] MEDS: FLUCONAZOLE INJ 200 MG/100 ML PREMIX IV SCH (08:10)
[2021-12-16] MEDS: SODIUM BICARBONATE 650 MG TABLET PO SCH ×2 (08:11→21:56)
[2021-12-16] MEDS: FERROUS SULFATE 325 MG TABLET PO SCH (08:11)
[2021-12-16] MEDS: INSULIN GLARGINE 100 UNIT/ML SUBCUT SCH (08:11)
[2021-12-16] MEDS: DOCUSATE SODIUM 100 MG/10 ML UDCUP PO SCH ×2 (08:11→21:56)
[2021-12-16] MEDS: calcitrioL 0.25 MCG CAPSULE PO SCH (08:11)
[2021-12-16] MEDS: ASCORBIC ACID 500 MG TABLET PO SCH (08:12)
[2021-12-16] MEDS: carvediloL 12.5 MG TABLET PO SCH ×2 (08:12→21:56)
[2021-12-16] MEDS: PANTOPRAZOLE 40 MG VIAL IV SCH ×2 (08:12→21:58)
[2021-12-16] MEDS: ZINC OXIDE 16% PASTE 57 GM TUBE TOP SCH ×2 (08:12→22:23)
[2021-12-16] MEDS: methylPREDNISolone SOD SUC 40 MG/1 ML VIAL IV SCH ×2 (08:12→15:32)
[2021-12-16] MEDS: NYSTATIN POWDER 15 GM BOTTLE TOP SCH ×2 (08:13→22:23)
[2021-12-16] MEDS: cefTRIAXone 1,000 MG in SODIUM CHLORIDE 0.9% 100 ML IV SCH (11:29)
[2021-12-16] MEDS: MORPHINE 2 MG/1 ML SYRINGE IV PRN ×2 (12:10→15:33)
[2021-12-16] MEDS ORDERED: VANCOMYCIN INJ 500 MG in SODIUM CHLORIDE 0.9% 100 ML IV ONE (17:00)
[2021-12-16] MEDS: TAMSULOSIN 0.4 MG CAPSULE PO SCH (21:56)
[2021-12-16] MEDS: ATORVASTATIN 40 MG TABLET PO SCH (21:56)
[2021-12-16] MEDS: ACETAMINOPHEN 325 MG TABLET PO PRN (22:20)
[2021-12-17] MEDS: ALBUTEROL/IPRATROPIUM 3 ML NEB RESP TX SCH ×4 (00:18→19:00)
[2021-12-17] MEDS: methylPREDNISolone SOD SUC 40 MG/1 ML VIAL IV SCH ×3 (00:29→16:15)
[2021-12-17] MEDS: INSULIN LISPRO 100 UNIT/ML SUBCUT SCH ×4 (01:21→17:41)
[2021-12-17] MEDS: HEPARIN 5,000 UNIT/1 ML VIAL SUBCUT SCH ×2 (02:13→14:23)
[2021-12-17 04:39] LABS: Basophils # 0.1 10*3/uL (0.0-0.2); Basophils % 0.2 % (0.0-0.8); Hematocrit 26.8 VOL% (42.0-52.0); Hemoglobin 8.3 GM/DL (14.0-18.0); Immature Granulocytes % 4.1 %; Lymphocytes # 1.2 10*3/uL (1.4-4.0); Lymphocytes % 4.3 % (21.2-54.2); Mean Corpuscular Volume 89.3 FL (87-102); Mean Platelet Volume 10.9 FL (9.6-12.0); Monocytes # 0.9 10*3/uL (0.11-0.8); Monocytes % 3.4 % (1.7-12.7); NRBC # 0.68 10*3/uL; Platelet Count 583 T/CUMM (130-400)
[2021-12-17 05:20] LABS: Osmolality,Calculated 294.7 MOS/KG (273-304); Potassium 4.4 MMOL/L (3.5-5.1)
[2021-12-17 07:06] LABS: Lymphocytes 11 % (20-55); Nucleated Red Blood Cells 3 /100 WBC (0-5); Total Cells Counted 100
[2021-12-17 07:07] LABS: Platelet Estimate Increased
[2021-12-17] MEDS: FLUCONAZOLE INJ 200 MG/100 ML PREMIX IV SCH (08:50)
[2021-12-17] MEDS: PANTOPRAZOLE 40 MG VIAL IV SCH ×2 (08:50→20:46)
[2021-12-17] MEDS: INSULIN GLARGINE 100 UNIT/ML SUBCUT SCH (08:50)
[2021-12-17] MEDS: FERROUS SULFATE 325 MG TABLET PO SCH (08:50)
[2021-12-17] MEDS: NYSTATIN POWDER 15 GM BOTTLE TOP SCH ×2 (08:51→20:43)
[2021-12-17] MEDS: ASCORBIC ACID 500 MG TABLET PO SCH (08:51)
[2021-12-17] MEDS: ZINC OXIDE 16% PASTE 57 GM TUBE TOP SCH ×2 (08:51→20:43)
[2021-12-17] MEDS: carvediloL 12.5 MG TABLET PO SCH ×2 (08:51→20:43)
[2021-12-17] MEDS: calcitrioL 0.25 MCG CAPSULE PO SCH (08:51)
[2021-12-17] MEDS: SODIUM BICARBONATE 650 MG TABLET PO SCH ×2 (08:51→20:43)
[2021-12-17] MEDS: DOCUSATE SODIUM 100 MG/10 ML UDCUP PO SCH ×2 (08:51→20:43)
[2021-12-17] MEDS: cefTRIAXone 1,000 MG in SODIUM CHLORIDE 0.9% 100 ML IV SCH (12:04)
[2021-12-17] MEDS: ATORVASTATIN 40 MG TABLET PO SCH (20:43)
[2021-12-17] MEDS: TAMSULOSIN 0.4 MG CAPSULE PO SCH (20:43)
[2021-12-18] MEDS: ALBUTEROL/IPRATROPIUM 3 ML NEB RESP TX SCH ×4 (00:04→19:06)
[2021-12-18] MEDS: INSULIN LISPRO 100 UNIT/ML SUBCUT SCH ×5 (00:21→23:53)
[2021-12-18] MEDS: methylPREDNISolone SOD SUC 40 MG/1 ML VIAL IV SCH ×4 (00:21→23:53)
[2021-12-18] MEDS: HEPARIN 5,000 UNIT/1 ML VIAL SUBCUT SCH ×2 (03:12→14:34)
[2021-12-18 05:17] LABS: Basophils # 0.1 10*3/uL (0.0-0.2); Basophils % 0.2 % (0.0-0.8); Hematocrit 28.3 VOL% (42.0-52.0); Immature Granulocytes % 4.7 %; Immature Granulocytes Absolute 1.29 #; Lymphocytes # 0.9 10*3/uL (1.4-4.0); Lymphocytes % 3.4 % (21.2-54.2); Mean Corpuscular HGB Conc 31.8 GM/DL (32-36); Mean Corpuscular Volume 88.2 FL (87-102); Mean Platelet Volume 10.7 FL (9.6-12.0); Monocytes # 0.6 10*3/uL (0.11-0.8); Monocytes % 2.1 % (1.7-12.7); NRBC # 0.47 10*3/uL; Neutrophils % 89.6 % (38.7-73.9); Platelet Count 641 T/CUMM (130-400); Red Blood Count 3.21 MC/CUMM (3.8-5.5); Red Cell Distribution Width 16.2 % (9.3-17.3); White Blood Count 27.2 T/CUMM (4-12)
[2021-12-18 05:36] LABS: Calcium 8.1 MG/DL (8.5-10.1); Osmolality,Calculated 303.3 MOS/KG (273-304); Potassium 4.9 MMOL/L (3.5-5.1)
[2021-12-18 05:46] LABS: Hypochromia Slight; Lymphocytes 5 % (20-55); Microcytosis Slight; Nucleated Red Blood Cells 2 /100 WBC (0-5); Platelet Estimate Adequate; Total Cells Counted 100
[2021-12-18] MEDS: DOCUSATE SODIUM 100 MG/10 ML UDCUP PO SCH ×2 (08:04→20:40)
[2021-12-18] MEDS: calcitrioL 0.25 MCG CAPSULE PO SCH (08:04)
[2021-12-18] MEDS: PANTOPRAZOLE 40 MG VIAL IV SCH ×2 (08:04→20:40)
[2021-12-18] MEDS: carvediloL 12.5 MG TABLET PO SCH ×2 (08:05→20:40)
[2021-12-18] MEDS: MORPHINE 2 MG/1 ML SYRINGE IV PRN (08:05)
[2021-12-18] MEDS: SODIUM BICARBONATE 650 MG TABLET PO SCH ×2 (08:05→20:40)
[2021-12-18] MEDS: ASCORBIC ACID 500 MG TABLET PO SCH (08:05)
[2021-12-18] MEDS: FERROUS SULFATE 325 MG TABLET PO SCH (08:05)
[2021-12-18] MEDS: INSULIN GLARGINE 100 UNIT/ML SUBCUT SCH (08:05)
[2021-12-18] MEDS: FLUCONAZOLE INJ 200 MG/100 ML PREMIX IV SCH (08:06)
[2021-12-18] MEDS: ZINC OXIDE 16% PASTE 57 GM TUBE TOP SCH ×2 (09:00→20:39)
[2021-12-18] MEDS: NYSTATIN POWDER 15 GM BOTTLE TOP SCH ×2 (09:00→20:40)
[2021-12-18] MEDS: cefTRIAXone 1,000 MG in SODIUM CHLORIDE 0.9% 100 ML IV SCH (12:47)
[2021-12-18] MEDS: ATORVASTATIN 40 MG TABLET PO SCH (20:40)
[2021-12-18] MEDS: TAMSULOSIN 0.4 MG CAPSULE PO SCH (20:40)
[2021-12-19] MEDS: ALBUTEROL/IPRATROPIUM 3 ML NEB RESP TX SCH ×4 (00:04→19:34)
[2021-12-19] MEDS: HEPARIN 5,000 UNIT/1 ML VIAL SUBCUT SCH ×2 (02:53→14:14)
[2021-12-19] MEDS: INSULIN LISPRO 100 UNIT/ML SUBCUT SCH ×4 (05:06→20:55)
[2021-12-19 05:31] LABS: Basophils # 0.1 10*3/uL (0.0-0.2); Basophils % 0.3 % (0.0-0.8); Eosinophils # 0.1 10*3/uL (0.0-0.87); Eosinophils % 0.2 % (0.00-10.9); Hematocrit 29.2 VOL% (42.0-52.0); Hemoglobin 9.2 GM/DL (14.0-18.0); Immature Granulocytes % 6.3 %; Lymphocytes # 2.5 10*3/uL (1.4-4.0); Lymphocytes % 9.4 % (21.2-54.2); Mean Corpuscular HGB Conc 31.5 GM/DL (32-36); Mean Corpuscular Volume 88.2 FL (87-102); Mean Platelet Volume 10.2 FL (9.6-12.0); Monocytes # 1.8 10*3/uL (0.11-0.8); Monocytes % 6.5 % (1.7-12.7); NRBC # 0.39 10*3/uL; Neutrophils % 77.3 % (38.7-73.9); Platelet Count 655 T/CUMM (130-400); Red Blood Count 3.31 MC/CUMM (3.8-5.5); Red Cell Distribution Width 16.2 % (9.3-17.3)
[2021-12-19 05:50] LABS: Calcium 8.1 MG/DL (8.5-10.1); Osmolality,Calculated 292.3 MOS/KG (273-304); Potassium 4.4 MMOL/L (3.5-5.1)
[2021-12-19 05:51] LABS: Lymphocytes 5 % (20-55); Nucleated Red Blood Cells 1 /100 WBC (0-5); Total Cells Counted 100
[2021-12-19 05:52] LABS: Hypochromia Slight; Microcytosis Slight; Platelet Estimate Increased
[2021-12-19] MEDS: methylPREDNISolone SOD SUC 40 MG/1 ML VIAL IV SCH ×2 (08:16→16:14)
[2021-12-19] MEDS: PANTOPRAZOLE 40 MG VIAL IV SCH ×2 (08:17→20:55)
[2021-12-19] MEDS: FLUCONAZOLE INJ 200 MG/100 ML PREMIX IV SCH (08:17)
[2021-12-19] MEDS: SODIUM BICARBONATE 650 MG TABLET PO SCH ×2 (08:19→20:56)
[2021-12-19] MEDS: carvediloL 12.5 MG TABLET PO SCH ×2 (08:19→20:55)
[2021-12-19] MEDS: FERROUS SULFATE 325 MG TABLET PO SCH (08:19)
[2021-12-19] MEDS: ASCORBIC ACID 500 MG TABLET PO SCH (08:19)
[2021-12-19] MEDS: calcitrioL 0.25 MCG CAPSULE PO SCH (08:19)
[2021-12-19] MEDS: INSULIN GLARGINE 100 UNIT/ML SUBCUT SCH (08:21)
[2021-12-19] MEDS: ZINC OXIDE 16% PASTE 57 GM TUBE TOP SCH ×2 (08:25→20:55)
[2021-12-19] MEDS: NYSTATIN POWDER 15 GM BOTTLE TOP SCH ×2 (08:25→20:55)
[2021-12-19] MEDS: DOCUSATE SODIUM 100 MG/10 ML UDCUP PO SCH ×2 (08:29→20:55)
[2021-12-19] MEDS: cefTRIAXone 1,000 MG in SODIUM CHLORIDE 0.9% 100 ML IV SCH (11:46)
[2021-12-19] MEDS: ATORVASTATIN 40 MG TABLET PO SCH (20:55)
[2021-12-19] MEDS: TAMSULOSIN 0.4 MG CAPSULE PO SCH (20:55)
[2021-12-19] MEDS ORDERED: INSULIN LISPRO 100 UNIT/ML SUBCUT SCH (21:00)
[2021-12-20] MEDS: methylPREDNISolone SOD SUC 40 MG/1 ML VIAL IV SCH ×3 (00:16→18:35)
[2021-12-20] MEDS: ALBUTEROL/IPRATROPIUM 3 ML NEB RESP TX SCH ×4 (00:24→20:01)
[2021-12-20] MEDS: HEPARIN 5,000 UNIT/1 ML VIAL SUBCUT SCH ×2 (02:05→13:43)
[2021-12-20 04:36] LABS: Basophils # 0.1 10*3/uL (0.0-0.2); Basophils % 0.3 % (0.0-0.8); Hematocrit 28.7 VOL% (42.0-52.0); Hemoglobin 8.9 GM/DL (14.0-18.0); Immature Granulocytes % 4.7 %; Lymphocytes # 1.4 10*3/uL (1.4-4.0); Mean Corpuscular Volume 88.6 FL (87-102); Mean Platelet Volume 10.5 FL (9.6-12.0); Monocytes # 1.3 10*3/uL (0.11-0.8); Monocytes % 5.4 % (1.7-12.7); NRBC # 0.15 10*3/uL; Neutrophils % 83.6 % (38.7-73.9); Platelet Count 684 T/CUMM (130-400); Red Blood Count 3.24 MC/CUMM (3.8-5.5); Red Cell Distribution Width 16.2 % (9.3-17.3); White Blood Count 23.5 T/CUMM (4-12)
[2021-12-20 05:00] LABS: Calcium 8.1 MG/DL (8.5-10.1); Osmolality,Calculated 304.1 MOS/KG (273-304); Potassium 4.9 MMOL/L (3.5-5.1)
[2021-12-20 05:06] LABS: Lymphocytes 4 % (20-55); Total Cells Counted 100
[2021-12-20 05:07] LABS: Hypochromia Slight; Microcytosis Slight; Platelet Estimate Adequate
[2021-12-20] MEDS: INSULIN LISPRO 100 UNIT/ML SUBCUT SCH ×4 (07:41→20:48)
[2021-12-20] MEDS: PANTOPRAZOLE 40 MG VIAL IV SCH ×2 (09:47→20:49)
[2021-12-20] MEDS: calcitrioL 0.25 MCG CAPSULE PO SCH (09:48)
[2021-12-20] MEDS: FERROUS SULFATE 325 MG TABLET PO SCH (09:48)
[2021-12-20] MEDS: DOCUSATE SODIUM 100 MG/10 ML UDCUP PO SCH ×2 (09:48→20:48)
[2021-12-20] MEDS: carvediloL 12.5 MG TABLET PO SCH ×2 (09:48→20:48)
[2021-12-20] MEDS: ASCORBIC ACID 500 MG TABLET PO SCH (09:48)
[2021-12-20] MEDS: INSULIN GLARGINE 100 UNIT/ML SUBCUT SCH (09:48)
[2021-12-20] MEDS: SODIUM BICARBONATE 650 MG TABLET PO SCH ×2 (09:48→20:49)
[2021-12-20] MEDS: ZINC OXIDE 16% PASTE 57 GM TUBE TOP SCH ×2 (09:56→20:47)
[2021-12-20] MEDS: NYSTATIN POWDER 15 GM BOTTLE TOP SCH ×2 (09:56→20:48)
[2021-12-20] MEDS: FLUCONAZOLE INJ 200 MG/100 ML PREMIX IV SCH (11:22)
[2021-12-20] MEDS: hydrALAZINE 20 MG/1 ML VIAL IV PRN (18:34)
[2021-12-20] MEDS: TAMSULOSIN 0.4 MG CAPSULE PO SCH (20:48)
[2021-12-20] MEDS: ATORVASTATIN 40 MG TABLET PO SCH (20:48)
[2021-12-21] MEDS: methylPREDNISolone SOD SUC 40 MG/1 ML VIAL IV SCH ×2 (00:12→09:50)
[2021-12-21] MEDS: ALBUTEROL/IPRATROPIUM 3 ML NEB RESP TX SCH ×4 (00:53→19:25)
[2021-12-21] MEDS: HEPARIN 5,000 UNIT/1 ML VIAL SUBCUT SCH ×2 (02:09→18:11)
[2021-12-21 05:38] LABS: Basophils # 0.1 10*3/uL (0.0-0.2); Basophils % 0.3 % (0.0-0.8); Hematocrit 30.1 VOL% (42.0-52.0); Hemoglobin 9.2 GM/DL (14.0-18.0); Immature Granulocytes % 6.7 %; Immature Granulocytes Absolute 1.45 #; Lymphocytes # 0.9 10*3/uL (1.4-4.0); Lymphocytes % 4.4 % (21.2-54.2); Mean Corpuscular HGB Conc 30.6 GM/DL (32-36); Mean Corpuscular Volume 88.8 FL (87-102); Mean Platelet Volume 10.4 FL (9.6-12.0); Monocytes # 0.5 10*3/uL (0.11-0.8); Monocytes % 2.1 % (1.7-12.7); Neutrophils % 86.5 % (38.7-73.9); Platelet Count 702 T/CUMM (130-400); Red Blood Count 3.39 MC/CUMM (3.8-5.5); Red Cell Distribution Width 16.3 % (9.3-17.3); White Blood Count 21.6 T/CUMM (4-12)
[2021-12-21 05:57] LABS: Calcium 7.9 MG/DL (8.5-10.1); Osmolality,Calculated 291.5 MOS/KG (273-304); Potassium 4.4 MMOL/L (3.5-5.1)
[2021-12-21 06:00] LABS: Lymphocytes 4 % (20-55); Platelet Estimate Adequate; Total Cells Counted 100
[2021-12-21 06:01] LABS: Hypochromia Slight; Microcytosis Slight
[2021-12-21] MEDS: INSULIN LISPRO 100 UNIT/ML SUBCUT SCH ×4 (08:50→20:40)
[2021-12-21] MEDS: ZINC OXIDE 16% PASTE 57 GM TUBE TOP SCH ×2 (09:30→20:39)
[2021-12-21] MEDS: INSULIN GLARGINE 100 UNIT/ML SUBCUT SCH (10:00)
[2021-12-21] MEDS: ISOSORBIDE MONONITRATE 30 MG TABLET PO SCH (10:00)
[2021-12-21] MEDS: calcitrioL 0.25 MCG CAPSULE PO SCH (10:00)
[2021-12-21] MEDS: ASCORBIC ACID 500 MG TABLET PO SCH (10:00)
[2021-12-21] MEDS: FERROUS SULFATE 325 MG TABLET PO SCH (10:00)
[2021-12-21] MEDS: carvediloL 12.5 MG TABLET PO SCH ×2 (10:00→20:39)
[2021-12-21] MEDS: DOCUSATE SODIUM 100 MG/10 ML UDCUP PO SCH ×2 (10:00→20:39)
[2021-12-21] MEDS: PANTOPRAZOLE 40 MG VIAL IV SCH ×2 (10:00→20:40)
[2021-12-21] MEDS: NYSTATIN POWDER 15 GM BOTTLE TOP SCH ×2 (10:00→20:40)
[2021-12-21] MEDS: SODIUM BICARBONATE 650 MG TABLET PO SCH ×2 (10:00→20:40)
[2021-12-21] MEDS ORDERED: BISACODYL 10 MG SUPP RECTAL PRN (19:57)
[2021-12-21] MEDS: ATORVASTATIN 40 MG TABLET PO SCH (20:40)
[2021-12-21] MEDS: TAMSULOSIN 0.4 MG CAPSULE PO SCH (20:40)
[2021-12-22] MEDS: HEPARIN 5,000 UNIT/1 ML VIAL SUBCUT SCH ×2 (02:16→13:03)
[2021-12-22 04:19] LABS: Basophils % 0.2 % (0.0-0.8); Eosinophils # 0.6 10*3/uL (0.0-0.87); Eosinophils % 3.5 % (0.00-10.9); Hematocrit 27.5 VOL% (42.0-52.0); Hemoglobin 8.6 GM/DL (14.0-18.0); Immature Granulocytes % 4.4 %; Immature Granulocytes Absolute 0.77 #; Lymphocytes # 1.4 10*3/uL (1.4-4.0); Lymphocytes % 7.9 % (21.2-54.2); Mean Corpuscular HGB Conc 31.3 GM/DL (32-36); Mean Corpuscular Volume 88.7 FL (87-102); Mean Platelet Volume 10.1 FL (9.6-12.0); Monocytes # 1.1 10*3/uL (0.11-0.8); Platelet Count 696 T/CUMM (130-400); Red Cell Distribution Width 16.6 % (9.3-17.3); White Blood Count 17.6 T/CUMM (4-12)
[2021-12-22 04:38] LABS: Calcium 7.6 MG/DL (8.5-10.1); Osmolality,Calculated 295.5 MOS/KG (273-304); Potassium 4.3 MMOL/L (3.5-5.1)
[2021-12-22 05:36] LABS: Anisocytosis 1+; Burr Cells Few; Eosinophils 5 % (0-10); Lymphocytes 8 % (20-55); Macrocytosis 1+; Myelocytes 1 %; Nucleated Red Blood Cells 1 /100 WBC (0-5); Platelet Estimate Increased; Total Cells Counted 100
[2021-12-22 05:37] LABS: Poikilocytosis Slight
[2021-12-22] MEDS: ALBUTEROL/IPRATROPIUM 3 ML NEB RESP TX SCH ×3 (07:33→13:50)
[2021-12-22] MEDS ORDERED: predniSONE 20 MG TABLET PO SCH ×2 (09:00)
[2021-12-22] MEDS: INSULIN LISPRO 100 UNIT/ML SUBCUT SCH ×2 (09:35→13:02)
[2021-12-22] MEDS: PANTOPRAZOLE 40 MG VIAL IV SCH (13:00)
[2021-12-22] MEDS: SODIUM BICARBONATE 650 MG TABLET PO SCH (13:01)
[2021-12-22] MEDS: ISOSORBIDE MONONITRATE 30 MG TABLET PO SCH (13:01)
[2021-12-22] MEDS: FERROUS SULFATE 325 MG TABLET PO SCH (13:01)
[2021-12-22] MEDS: calcitrioL 0.25 MCG CAPSULE PO SCH (13:01)
[2021-12-22] MEDS: ASCORBIC ACID 500 MG TABLET PO SCH (13:01)
[2021-12-22] MEDS: carvediloL 12.5 MG TABLET PO SCH (13:01)
[2021-12-22] MEDS: ZINC OXIDE 16% PASTE 57 GM TUBE TOP SCH (13:02)
[2021-12-22] MEDS: DOCUSATE SODIUM 100 MG/10 ML UDCUP PO SCH (13:02)
[2021-12-22] MEDS: NYSTATIN POWDER 15 GM BOTTLE TOP SCH (13:02)
== END 2021-12-22 15:44 | disposition home health service (06) | DRG 368 ==
LOC: N.ED 06:40 → N.EDINP 09:53 → SUATTDRO 09:53 → N.EDINP 11:20 → N.5E 11:31 → N.ICU 12-02 08:22
PROVIDERS: ADMIT Internal Medicine; ATTEND Internal Medicine

== ENCOUNTER 2021-12-31 22:47 | Inpatient (IN) ==
[2022-01-01] MEDS ORDERED: PANTOPRAZOLE 40 MG VIAL IV STA (00:30)
[2022-01-01] MEDS ORDERED: ONDANSETRON 4 MG/2 ML VIAL IV ONE (00:30)
[2022-01-01 01:00] LABS: Basophils % 0.3 % (0.0-0.8); Eosinophils % 0.2 % (0.00-10.9); Hematocrit 26.7 VOL% (42.0-52.0); Immature Granulocytes % 0.7 %; Immature Granulocytes Absolute 0.09 #; Lymphocytes # 1.6 10*3/uL (1.4-4.0); Lymphocytes % 12.6 % (21.2-54.2); Mean Platelet Volume 9.6 FL (9.6-12.0); Monocytes # 0.6 10*3/uL (0.11-0.8); Monocytes % 4.7 % (1.7-12.7); Neutrophils % 81.5 % (38.7-73.9); Platelet Count 433 T/CUMM (130-400); Red Cell Distribution Width 15.7 % (9.3-17.3); White Blood Count 12.4 T/CUMM (4-12)
[2022-01-01 01:15] LABS: INR 1.1; PT Patient Result 11.6 SECS (10.1-12.1); Partial Thromboplastin Time 44.9 SECS (23.7-32.9)
[2022-01-01 01:16] LABS: Alanine Aminotransferase 14 U/L (16-61); Albumin 1.8 G/DL (3.4-5.0); Alkaline Phosphatase 79 U/L (45-117); Aspartate Amino Transferase 11 U/L (0-37); Bilirubin,Total < 0.39 MG/DL (0.20-1.00); Blood Urea Nitrogen 43 MG/DL (7-18); Calcium 7.7 MG/DL (8.5-10.1); Carbon Dioxide 31 MMOL/L (21-32); Chloride 105 MMOL/L (98-107); Glucose 119 MG/DL (74-106); Osmolality,Calculated 292.3 MOS/KG (273-304); Potassium 3.9 MMOL/L (3.5-5.1); Sodium 141 MMOL/L (136-145); Total Protein 5.6 G/DL (6.4-8.2)
[2022-01-01] MEDS ORDERED: GLUCAGON 1 MG VIAL IM PRN (01:50)
[2022-01-01] MEDS ORDERED: ACETAMINOPHEN 325 MG TABLET PO PRN (01:53)
[2022-01-01] MEDS ORDERED: ONDANSETRON 4 MG/2 ML VIAL IV PRN (01:53)
[2022-01-01] MEDS ORDERED: NICOTINE 21 MG/24 HR PATCH TRANSDERM PRN (01:53)
[2022-01-01] MEDS ORDERED: DEXTROSE 10% 250 ML BAG IV PRN (02:09)
[2022-01-01] MEDS ORDERED: VANCOMYCIN INJ 500 MG in SODIUM CHLORIDE 0.9% 100 ML IV PRN (03:55)
[2022-01-01] MEDS ORDERED: VANCOMYCIN INJ 1,750 MG in SODIUM CHLORIDE 0.9% 500 ML IV ONE ×2 (05:00→09:00)
[2022-01-01] MEDS: PIPERACILLIN/TAZOBACTAM 3,375 MG in SODIUM CHLORIDE 0.9% 100 ML IV SCH ×2 (05:35→17:06)
[2022-01-01 05:48] LABS: Hematocrit 24.9 VOL% (42.0-52.0); Hemoglobin 7.5 GM/DL (14.0-18.0)
[2022-01-01 09:48] LABS: Amorphous Crystals,Urine Few /HPF (Few); RBC,Urine 27 /HPF (0-4); Squamous Epithelial Cell,Urine Occasional /HPF (0-10)
[2022-01-01 09:50] LABS: Bilirubin,Urine Small mg/dL (Negative); Blood, Urine Small mg/dL (Negative); Glucose,Urine (UA) Negative (Negative); Ketones,Urine Trace mg/dL (Negative); Nitrite,Urine Negative (Negative); Protein,Urine 100 mg/dL (Negative); Urine Appearance Clear (Clear); Urine Color Dark yellow (Yellow); Urine Specific Gravity > 1.030 (1.001-1.035); Urine Urobilinogen 0.2 eU/dL (<2.0)
[2022-01-01] MEDS ORDERED: CALCIUM CARBONATE CHEW 500 MG TABLET PO PRN (10:17)
[2022-01-01] MEDS: calcitrioL 0.25 MCG CAPSULE PO SCH (10:54)
[2022-01-01] MEDS: FERROUS SULFATE 325 MG TABLET PO SCH (10:54)
[2022-01-01] MEDS: ISOSORBIDE MONONITRATE 30 MG TABLET PO SCH (10:54)
[2022-01-01] MEDS: CHOLECALCIFEROL 1,000 UNIT TABLET PO SCH (10:54)
[2022-01-01] MEDS: PANTOPRAZOLE 40 MG VIAL IV SCH ×2 (10:54→21:42)
[2022-01-01] MEDS: carvediloL 25 MG TABLET PO SCH ×2 (10:54→21:41)
[2022-01-01] MEDS: ASCORBIC ACID 500 MG TABLET PO SCH (10:54)
[2022-01-01] MEDS: DOCUSATE SODIUM 100 MG CAPSULE PO SCH ×2 (10:54→21:41)
[2022-01-01] MEDS: NICOTINE 14 MG/24 HR PATCH TRANSDERM SCH (11:05)
[2022-01-01 11:32] LABS: Hematocrit 27.4 VOL% (42.0-52.0); Hemoglobin 8.2 GM/DL (14.0-18.0)
[2022-01-01] MEDS: NYSTATIN POWDER 15 GM BOTTLE TOP SCH ×2 (13:57→21:42)
[2022-01-01 17:43] LABS: Hematocrit 25.4 VOL% (42.0-52.0); Hemoglobin 7.7 GM/DL (14.0-18.0)
[2022-01-01] MEDS: ATORVASTATIN 40 MG TABLET PO SCH (21:41)
[2022-01-01] MEDS: TAMSULOSIN 0.4 MG CAPSULE PO SCH (21:41)
[2022-01-02 00:44] LABS: Hemoglobin 7.5 GM/DL (14.0-18.0)
[2022-01-02] MEDS: PIPERACILLIN/TAZOBACTAM 3,375 MG in SODIUM CHLORIDE 0.9% 100 ML IV SCH ×2 (04:21→16:43)
[2022-01-02] MEDS: calcitrioL 0.25 MCG CAPSULE PO SCH (08:25)
[2022-01-02] MEDS: PANTOPRAZOLE 40 MG VIAL IV SCH ×2 (08:25→21:25)
[2022-01-02] MEDS: ASCORBIC ACID 500 MG TABLET PO SCH (08:25)
[2022-01-02] MEDS: ISOSORBIDE MONONITRATE 30 MG TABLET PO SCH (08:26)
[2022-01-02] MEDS: carvediloL 25 MG TABLET PO SCH ×2 (08:26→21:25)
[2022-01-02] MEDS: FERROUS SULFATE 325 MG TABLET PO SCH (08:26)
[2022-01-02] MEDS: DOCUSATE SODIUM 100 MG CAPSULE PO SCH ×2 (08:26→21:25)
[2022-01-02] MEDS: CHOLECALCIFEROL 1,000 UNIT TABLET PO SCH (08:26)
[2022-01-02] MEDS: NYSTATIN POWDER 15 GM BOTTLE TOP SCH ×2 (08:26→21:25)
[2022-01-02] MEDS: NICOTINE 14 MG/24 HR PATCH TRANSDERM SCH (08:27)
[2022-01-02] MEDS ORDERED: DEXTROSE 50% 25 GM/50 ML VIAL IV PRN (10:42)
[2022-01-02] MEDS ORDERED: GLUCAGON 1 MG VIAL IM PRN (10:42)
[2022-01-02] MEDS ORDERED: HEPARIN 10,000 UNIT/10 ML VIAL IV PRN (11:38)
[2022-01-02] MEDS ORDERED: VANCOMYCIN INJ 500 MG in SODIUM CHLORIDE 0.9% 100 ML IV ONE ×2 (17:00→23:00)
[2022-01-02] MEDS: TAMSULOSIN 0.4 MG CAPSULE PO SCH (21:25)
[2022-01-02] MEDS: ATORVASTATIN 40 MG TABLET PO SCH (21:25)
[2022-01-03 05:59] LABS: Basophils # 0.1 10*3/uL (0.0-0.2); Basophils % 0.7 % (0.0-0.8); Eosinophils # 0.3 10*3/uL (0.0-0.87); Eosinophils % 2.1 % (0.00-10.9); Hematocrit 25.1 VOL% (42.0-52.0); Hemoglobin 7.5 GM/DL (14.0-18.0); Immature Granulocytes % 0.7 %; Immature Granulocytes Absolute 0.09 #; Lymphocytes # 1.5 10*3/uL (1.4-4.0); Lymphocytes % 10.5 % (21.2-54.2); Mean Corpuscular HGB Conc 29.9 GM/DL (32-36); Mean Corpuscular Volume 88.7 FL (87-102); Mean Platelet Volume 9.8 FL (9.6-12.0); Monocytes # 0.8 10*3/uL (0.11-0.8); Monocytes % 5.6 % (1.7-12.7); Neutrophils % 80.4 % (38.7-73.9); Platelet Count 366 T/CUMM (130-400); Red Blood Count 2.83 MC/CUMM (3.8-5.5); Red Cell Distribution Width 15.8 % (9.3-17.3); White Blood Count 13.8 T/CUMM (4-12)
[2022-01-03] MEDS: PIPERACILLIN/TAZOBACTAM 3,375 MG in SODIUM CHLORIDE 0.9% 100 ML IV SCH ×2 (06:06→17:05)
[2022-01-03] MEDS: ISOSORBIDE MONONITRATE 30 MG TABLET PO SCH (09:28)
[2022-01-03] MEDS: carvediloL 25 MG TABLET PO SCH ×2 (09:28→21:20)
[2022-01-03] MEDS: FERROUS SULFATE 325 MG TABLET PO SCH (09:28)
[2022-01-03] MEDS: NYSTATIN POWDER 15 GM BOTTLE TOP SCH ×2 (09:29→21:21)
[2022-01-03] MEDS: DOCUSATE SODIUM 100 MG CAPSULE PO SCH ×2 (09:29→21:20)
[2022-01-03] MEDS: ASCORBIC ACID 500 MG TABLET PO SCH (09:29)
[2022-01-03] MEDS: calcitrioL 0.25 MCG CAPSULE PO SCH (09:29)
[2022-01-03] MEDS: CHOLECALCIFEROL 1,000 UNIT TABLET PO SCH (09:29)
[2022-01-03] MEDS: NICOTINE 14 MG/24 HR PATCH TRANSDERM SCH (09:30)
[2022-01-03] MEDS: PANTOPRAZOLE 40 MG VIAL IV SCH ×2 (09:30→21:20)
[2022-01-03] MEDS: TAMSULOSIN 0.4 MG CAPSULE PO SCH (21:20)
[2022-01-03] MEDS: ATORVASTATIN 40 MG TABLET PO SCH (21:20)
[2022-01-04] MEDS: PIPERACILLIN/TAZOBACTAM 3,375 MG in SODIUM CHLORIDE 0.9% 100 ML IV SCH ×2 (05:32→19:27)
[2022-01-04] MEDS: calcitrioL 0.25 MCG CAPSULE PO SCH (08:41)
[2022-01-04] MEDS: CHOLECALCIFEROL 1,000 UNIT TABLET PO SCH (08:41)
[2022-01-04] MEDS: FERROUS SULFATE 325 MG TABLET PO SCH (08:41)
[2022-01-04] MEDS: NYSTATIN POWDER 15 GM BOTTLE TOP SCH ×2 (08:41→21:24)
[2022-01-04] MEDS: ISOSORBIDE MONONITRATE 30 MG TABLET PO SCH (08:41)
[2022-01-04] MEDS: DOCUSATE SODIUM 100 MG CAPSULE PO SCH ×2 (08:41→21:23)
[2022-01-04] MEDS: ASCORBIC ACID 500 MG TABLET PO SCH (08:41)
[2022-01-04] MEDS: carvediloL 25 MG TABLET PO SCH ×2 (08:41→21:23)
[2022-01-04] MEDS: NICOTINE 14 MG/24 HR PATCH TRANSDERM SCH (08:42)
[2022-01-04] MEDS: PANTOPRAZOLE 40 MG VIAL IV SCH ×2 (08:42→21:23)
[2022-01-04] MEDS ORDERED: HEPARIN 10,000 UNIT/10 ML VIAL IV PRN (10:30)
[2022-01-04] MEDS ORDERED: VANCOMYCIN INJ 500 MG in SODIUM CHLORIDE 0.9% 100 ML IV ONE (17:00)
[2022-01-04] MEDS: ATORVASTATIN 40 MG TABLET PO SCH (21:23)
[2022-01-04] MEDS: TAMSULOSIN 0.4 MG CAPSULE PO SCH (21:23)
[2022-01-05] MEDS: PIPERACILLIN/TAZOBACTAM 3,375 MG in SODIUM CHLORIDE 0.9% 100 ML IV SCH ×2 (04:40→18:26)
[2022-01-05] MEDS: ASCORBIC ACID 500 MG TABLET PO SCH (09:02)
[2022-01-05] MEDS: DOCUSATE SODIUM 100 MG CAPSULE PO SCH ×2 (09:02→20:42)
[2022-01-05] MEDS: carvediloL 25 MG TABLET PO SCH ×2 (09:03→20:42)
[2022-01-05] MEDS: calcitrioL 0.25 MCG CAPSULE PO SCH (09:03)
[2022-01-05] MEDS: FERROUS SULFATE 325 MG TABLET PO SCH (09:03)
[2022-01-05] MEDS: ISOSORBIDE MONONITRATE 30 MG TABLET PO SCH (09:03)
[2022-01-05] MEDS: CHOLECALCIFEROL 1,000 UNIT TABLET PO SCH (09:03)
[2022-01-05] MEDS: PANTOPRAZOLE 40 MG VIAL IV SCH ×2 (09:08→20:42)
[2022-01-05] MEDS: NICOTINE 14 MG/24 HR PATCH TRANSDERM SCH (09:09)
[2022-01-05] MEDS: NYSTATIN POWDER 15 GM BOTTLE TOP SCH ×2 (09:09→20:41)
[2022-01-05] MEDS: TAMSULOSIN 0.4 MG CAPSULE PO SCH (20:41)
[2022-01-05] MEDS: ATORVASTATIN 40 MG TABLET PO SCH (20:41)
[2022-01-06] MEDS: PIPERACILLIN/TAZOBACTAM 3,375 MG in SODIUM CHLORIDE 0.9% 100 ML IV SCH (04:55)
[2022-01-06] MEDS: CHOLECALCIFEROL 1,000 UNIT TABLET PO SCH (11:07)
[2022-01-06] MEDS: PANTOPRAZOLE 40 MG VIAL IV SCH (11:08)
[2022-01-06] MEDS: ASCORBIC ACID 500 MG TABLET PO SCH (11:08)
[2022-01-06] MEDS: NICOTINE 14 MG/24 HR PATCH TRANSDERM SCH (11:08)
[2022-01-06] MEDS: ISOSORBIDE MONONITRATE 30 MG TABLET PO SCH (11:08)
[2022-01-06] MEDS: calcitrioL 0.25 MCG CAPSULE PO SCH (11:08)
[2022-01-06] MEDS: FERROUS SULFATE 325 MG TABLET PO SCH (11:08)
[2022-01-06] MEDS: DOCUSATE SODIUM 100 MG CAPSULE PO SCH (11:08)
[2022-01-06] MEDS: carvediloL 25 MG TABLET PO SCH (11:08)
[2022-01-06] MEDS: NYSTATIN POWDER 15 GM BOTTLE TOP SCH (11:13)
[2022-01-06 11:25] VITALS: BP 171/89
[2022-01-06] MEDS ORDERED: VANCOMYCIN INJ 500 MG in SODIUM CHLORIDE 0.9% 100 ML IV ONE (12:00)
== END 2022-01-06 12:34 | disposition home health service (06) | DRG 377 ==
LOC: N.ED 22:47 → N.EDINP 01-01 01:50 → SUATTDRO 01-01 01:50 → N.EDINP 01-01 09:39 → N.TELEN 01-01 10:15
PROVIDERS: ADMIT Hospitalist; ATTEND Internal Medicine Geriatric Medicine

== ENCOUNTER 2022-01-17 09:27 | Observation (INO) ==
[2022-01-17] MEDS ORDERED: ONDANSETRON 4 MG/2 ML VIAL IV STA (10:21)
[2022-01-17 10:38] LABS: Basophils # 0.1 10*3/uL (0.0-0.2); Eosinophils # 0.2 10*3/uL (0.0-0.87); Hematocrit 29.6 VOL% (42.0-52.0); Hemoglobin 8.9 GM/DL (14.0-18.0); Immature Granulocytes % 0.6 %; Immature Granulocytes Absolute 0.06 #; Lymphocytes # 1.7 10*3/uL (1.4-4.0); Lymphocytes % 16.5 % (21.2-54.2); Mean Corpuscular HGB Conc 30.1 GM/DL (32-36); Mean Corpuscular Volume 84.6 FL (87-102); Mean Platelet Volume 9.6 FL (9.6-12.0); Monocytes # 0.6 10*3/uL (0.11-0.8); Monocytes % 6.2 % (1.7-12.7); Neutrophils % 73.7 % (38.7-73.9); Platelet Count 528 T/CUMM (130-400); White Blood Count 10.3 T/CUMM (4-12)
[2022-01-17 10:55] LABS: Alanine Aminotransferase < 6 U/L (16-61); Albumin 1.9 G/DL (3.4-5.0); Alkaline Phosphatase 59 U/L (45-117); Aspartate Amino Transferase 10 U/L (0-37); Bilirubin,Total < 0.39 MG/DL (0.20-1.00); Blood Urea Nitrogen 21 MG/DL (7-18); Calcium 9.7 MG/DL (8.5-10.1); Carbon Dioxide 34 MMOL/L (21-32); Chloride 103 MMOL/L (98-107); Glucose 78 MG/DL (74-106); Osmolality,Calculated 282.3 MOS/KG (273-304); Potassium 3.7 MMOL/L (3.5-5.1); Sodium 141 MMOL/L (136-145)
[2022-01-17] MEDS ORDERED: PANTOPRAZOLE 40 MG VIAL IV STA (11:33)
[2022-01-17] MEDS ORDERED: PROMETHAZINE INJ 12.5 MG in SODIUM CHLORIDE 0.9% 50 ML IV STA (12:35)
[2022-01-17] MEDS ORDERED: PROMETHAZINE 25 MG/1 ML VIAL ONE (12:45)
[2022-01-17] MEDS ORDERED: DEXTROSE 10% 250 ML BAG IV PRN (14:03)
[2022-01-17] MEDS ORDERED: ONDANSETRON 4 MG/2 ML VIAL IV PRN (14:03)
[2022-01-17] MEDS ORDERED: GLUCAGON 1 MG VIAL IM PRN (14:03)
[2022-01-17] MEDS ORDERED: hydrALAZINE 20 MG/1 ML VIAL IV PRN (14:34)
[2022-01-17] MEDS: POLYETHYLENE GLYCOL POWDER 17 GM PACK PO SCH (16:14)
[2022-01-17] MEDS: ENOXAPARIN 30 MG/0.3 ML SYRINGE SUBCUT SCH (16:14)
[2022-01-17] MEDS: cefTRIAXone 1,000 MG in SODIUM CHLORIDE 0.9% 100 ML IV SCH (16:14)
[2022-01-17] MEDS: INSULIN LISPRO 100 UNIT/ML SUBCUT SCH ×2 (16:36→20:14)
[2022-01-17] MEDS: DOXYCYCLINE HYCLATE INJ 100 MG in SODIUM CHLORIDE 0.9% 100 ML IV SCH (20:06)
[2022-01-17] MEDS ORDERED: ALUMINUM/MAGNES/SIMETH MAX STR 30 ML UDCUP PO PRN (21:30)
[2022-01-18 05:56] LABS: Basophils # 0.1 10*3/uL (0.0-0.2); Basophils % 1.2 % (0.0-0.8); Eosinophils # 0.2 10*3/uL (0.0-0.87); Hematocrit 29.6 VOL% (42.0-52.0); Hemoglobin 8.7 GM/DL (14.0-18.0); Immature Granulocytes % 0.5 %; Immature Granulocytes Absolute 0.04 #; Lymphocytes # 1.7 10*3/uL (1.4-4.0); Lymphocytes % 19.3 % (21.2-54.2); Mean Corpuscular HGB Conc 29.4 GM/DL (32-36); Mean Corpuscular Volume 85.5 FL (87-102); Mean Platelet Volume 9.8 FL (9.6-12.0); Monocytes # 0.6 10*3/uL (0.11-0.8); Monocytes % 7.1 % (1.7-12.7); Neutrophils % 69.9 % (38.7-73.9); Platelet Count 531 T/CUMM (130-400); Red Blood Count 3.46 MC/CUMM (3.8-5.5); Red Cell Distribution Width 16.3 % (9.3-17.3); White Blood Count 8.7 T/CUMM (4-12)
[2022-01-18 06:20] LABS: Calcium 9.3 MG/DL (8.5-10.1); Osmolality,Calculated 282.3 MOS/KG (273-304); Potassium 3.8 MMOL/L (3.5-5.1)
[2022-01-18] MEDS: INSULIN LISPRO 100 UNIT/ML SUBCUT SCH ×3 (08:58→17:42)
[2022-01-18] MEDS ORDERED: NICOTINE 14 MG/24 HR PATCH TRANSDERM SCH (09:00)
[2022-01-18] MEDS ORDERED: PANTOPRAZOLE 40 MG VIAL IV SCH (09:00)
[2022-01-18] MEDS ORDERED: CALCIUM CARBONATE CHEW 500 MG TABLET PO PRN (09:32)
[2022-01-18] MEDS: POLYETHYLENE GLYCOL POWDER 17 GM PACK PO SCH (09:56)
[2022-01-18] MEDS: DOXYCYCLINE HYCLATE INJ 100 MG in SODIUM CHLORIDE 0.9% 100 ML IV SCH (09:57)
[2022-01-18] MEDS: carvediloL 25 MG TABLET PO SCH ×2 (10:02→17:35)
[2022-01-18] MEDS ORDERED: calcitrioL 0.25 MCG CAPSULE PO SCH (11:00)
[2022-01-18] MEDS ORDERED: ASCORBIC ACID 500 MG TABLET PO SCH (11:00)
[2022-01-18] MEDS ORDERED: ISOSORBIDE MONONITRATE 30 MG TABLET PO SCH (11:00)
[2022-01-18] MEDS ORDERED: ASPIRIN EC 81 MG TABLET PO SCH (11:00)
[2022-01-18] MEDS ORDERED: CHOLECALCIFEROL 1,000 UNIT TABLET PO SCH (11:00)
[2022-01-18] MEDS ORDERED: HEPARIN 10,000 UNIT/10 ML VIAL IV SCH (15:00)
[2022-01-18] MEDS: cefTRIAXone 1,000 MG in SODIUM CHLORIDE 0.9% 100 ML IV SCH (17:24)
[2022-01-18] MEDS: ENOXAPARIN 30 MG/0.3 ML SYRINGE SUBCUT SCH (17:27)
[2022-01-18 17:33] VITALS: BP 96/61
[2022-01-18] MEDS ORDERED: ATORVASTATIN 40 MG TABLET PO SCH (21:00)
[2022-01-18] MEDS ORDERED: TAMSULOSIN 0.4 MG CAPSULE PO SCH (21:00)
[2022-01-20 14:17] LABS: Mycoplasma pneumoniae Ab Inter SEE COMMENTS; Mycoplasma pneumoniae Ab, IgG Positive (Negative); Mycoplasma pneumoniae Ab, IgM Negative (Negative)
== END 2022-01-18 19:12 | disposition home or self-care (01) ==
LOC: N.ED 09:27 → N.EDINP 09:27 → SUATTDRO 14:03 → N.5E 15:08
PROVIDERS: ADMIT Internal Medicine; ATTEND Emergency Medicine

== ENCOUNTER 2022-03-06 19:38 | Inpatient (IN) ==
[2022-03-06 21:26] LABS: Hemoglobin 9.9 GM/DL (14.0-18.0); Lymphocytes % 17.1 % (21.2-54.2); NRBC # 0.06 10*3/uL
[2022-03-06 21:35] LABS: INR 1.1; PT Patient Result 12.4 SECS (10.1-12.1)
[2022-03-06 21:45] LABS: Basophils # 0.1 10*3/uL (0.0-0.2); Eosinophils # 0.3 10*3/uL (0.0-0.87); Eosinophils % 2.5 % (0.00-10.9); Hematocrit 34.2 VOL% (42.0-52.0); Immature Granulocytes % 1.1 %; Immature Granulocytes Absolute 0.13 #; Lymphocytes # 2.1 10*3/uL (1.4-4.0); Mean Corpuscular HGB Conc 28.9 GM/DL (32-36); Mean Corpuscular Volume 86.1 FL (87-102); Mean Platelet Volume 10.6 FL (9.6-12.0); Monocytes # 0.8 10*3/uL (0.11-0.8); Monocytes % 6.7 % (1.7-12.7); Neutrophils % 71.6 % (38.7-73.9); Platelet Count 338 T/CUMM (130-400); Red Blood Count 3.97 MC/CUMM (3.8-5.5); Red Cell Distribution Width 19.3 % (9.3-17.3); White Blood Count 12.1 T/CUMM (4-12)
[2022-03-06 21:49] LABS: Alanine Aminotransferase 23 U/L (16-61); Albumin 2.2 G/DL (3.4-5.0); Alkaline Phosphatase 103 U/L (45-117); Aspartate Amino Transferase 20 U/L (0-37); Bilirubin,Total < 0.39 MG/DL (0.20-1.00); Blood Urea Nitrogen 45 MG/DL (7-18); Carbon Dioxide 31 MMOL/L (21-32); Chloride 106 MMOL/L (98-107); Glucose 144 MG/DL (74-106); Sodium 143 MMOL/L (136-145); Total Protein 5.9 G/DL (6.4-8.2)
[2022-03-06 21:55] LABS: Atypical Lymphocytes Few; Eosinophils 1 % (0-10); Lymphocytes 16 % (20-55); Nucleated Red Blood Cells 1 /100 WBC (0-5); Polychromasia Slight; Total Cells Counted 100
[2022-03-06 21:56] LABS: Platelet Estimate Adequate; Schistocytes Slight; Target Cells Slight
[2022-03-06] MEDS ORDERED: cefTRIAXone 1,000 MG in SODIUM CHLORIDE 0.9% 100 ML IV STA (22:00)
[2022-03-06] MEDS ORDERED: AZITHROMYCIN INJ 500 MG in SODIUM CHLORIDE 0.9% 250 ML IV STA (22:00)
[2022-03-06] MEDS ORDERED: NITROGLYCERIN 2% OINT 1 INCH/GM PACK TOP STA (22:25)
[2022-03-06] MEDS ORDERED: hydrALAZINE 20 MG/1 ML VIAL IV STA (22:25)
[2022-03-06] MEDS ORDERED: ALUMINUM/MAGNES/SIMETH MAX STR 30 ML UDCUP PO PRN (23:21)
[2022-03-06] MEDS ORDERED: NICOTINE 21 MG/24 HR PATCH TRANSDERM PRN (23:21)
[2022-03-06] MEDS ORDERED: hydrALAZINE 20 MG/1 ML VIAL IV PRN (23:21)
[2022-03-06] MEDS ORDERED: ONDANSETRON 4 MG/2 ML VIAL IV PRN (23:21)
[2022-03-07] MEDS ORDERED: BENZONATATE 100 MG CAPSULE PO PRN (00:17)
[2022-03-07] MEDS: ALBUTEROL/IPRATROPIUM 3 ML NEB RESP TX SCH ×4 (01:10→20:40)
[2022-03-07] MEDS ORDERED: CALCIUM CARBONATE CHEW 500 MG TABLET PO PRN (02:54)
[2022-03-07 03:21] LABS: Basophils # 0.1 10*3/uL (0.0-0.2); Basophils % 0.9 % (0.0-0.8)
[2022-03-07 03:39] LABS: Calcium 7.8 MG/DL (8.5-10.1); Osmolality,Calculated 294.1 MOS/KG (273-304); Potassium 3.9 MMOL/L (3.5-5.1)
[2022-03-07 03:42] LABS: Eosinophils # 0.2 10*3/uL (0.0-0.87); Eosinophils % 1.8 % (0.00-10.9); Hematocrit 32.6 VOL% (42.0-52.0); Hemoglobin 9.6 GM/DL (14.0-18.0); Immature Granulocytes % 0.8 %; Lymphocytes # 2.8 10*3/uL (1.4-4.0); Lymphocytes % 22.3 % (21.2-54.2); Mean Corpuscular HGB Conc 29.4 GM/DL (32-36); Mean Corpuscular Volume 85.3 FL (87-102); Mean Platelet Volume 10.1 FL (9.6-12.0); Monocytes # 0.8 10*3/uL (0.11-0.8); Monocytes % 6.2 % (1.7-12.7); NRBC # 0.03 10*3/uL; Platelet Count 320 T/CUMM (130-400); Red Blood Count 3.82 MC/CUMM (3.8-5.5); Red Cell Distribution Width 19.3 % (9.3-17.3); White Blood Count 12.5 T/CUMM (4-12)
[2022-03-07 08:16] LABS: Ferritin 1369.1 ng/mL (26-388)
[2022-03-07] MEDS: PANTOPRAZOLE 40 MG TABLET PO SCH (09:30)
[2022-03-07] MEDS: carvediloL 25 MG TABLET PO SCH ×2 (09:30→20:42)
[2022-03-07] MEDS: FERROUS SULFATE 325 MG TABLET PO SCH (09:30)
[2022-03-07] MEDS: guaiFENesin/DM ER 600-30 MG TABLET PO SCH ×2 (09:30→20:41)
[2022-03-07] MEDS: CHOLECALCIFEROL 1,000 UNIT TABLET PO SCH (09:30)
[2022-03-07] MEDS: ASCORBIC ACID 500 MG TABLET PO SCH (09:30)
[2022-03-07] MEDS: DOCUSATE SODIUM 100 MG CAPSULE PO SCH ×2 (09:30→20:41)
[2022-03-07] MEDS: calcitrioL 0.25 MCG CAPSULE PO SCH (09:30)
[2022-03-07] MEDS: ISOSORBIDE MONONITRATE 30 MG TABLET PO SCH (09:30)
[2022-03-07] MEDS: ASPIRIN EC 81 MG TABLET PO SCH (09:31)
[2022-03-07] MEDS: HEPARIN 5,000 UNIT/1 ML VIAL SUBCUT SCH ×2 (11:12→20:42)
[2022-03-07] MEDS: cefTRIAXone 1,000 MG in SODIUM CHLORIDE 0.9% 100 ML IV SCH (20:40)
[2022-03-07] MEDS: ATORVASTATIN 40 MG TABLET PO SCH (20:41)
[2022-03-07] MEDS: ACETAMINOPHEN 325 MG TABLET PO PRN (20:41)
[2022-03-07] MEDS: TAMSULOSIN 0.4 MG CAPSULE PO SCH (20:41)
[2022-03-07] MEDS ORDERED: AZITHROMYCIN INJ 500 MG in SODIUM CHLORIDE 0.9% 250 ML IV SCH (21:00)
[2022-03-08] MEDS: ALBUTEROL/IPRATROPIUM 3 ML NEB RESP TX SCH ×4 (01:36→20:43)
[2022-03-08] MEDS: CHOLECALCIFEROL 1,000 UNIT TABLET PO SCH (09:21)
[2022-03-08] MEDS: ASPIRIN EC 81 MG TABLET PO SCH (09:21)
[2022-03-08] MEDS: ASCORBIC ACID 500 MG TABLET PO SCH (09:21)
[2022-03-08] MEDS: guaiFENesin/DM ER 600-30 MG TABLET PO SCH ×2 (09:21→21:03)
[2022-03-08] MEDS: calcitrioL 0.25 MCG CAPSULE PO SCH (09:22)
[2022-03-08] MEDS: PANTOPRAZOLE 40 MG TABLET PO SCH (09:22)
[2022-03-08] MEDS: FERROUS SULFATE 325 MG TABLET PO SCH (09:22)
[2022-03-08] MEDS: DOCUSATE SODIUM 100 MG CAPSULE PO SCH ×2 (09:22→21:02)
[2022-03-08] MEDS ORDERED: HEPARIN 10,000 UNIT/10 ML VIAL IV PRN (13:25)
[2022-03-08] MEDS: carvediloL 25 MG TABLET PO SCH ×2 (14:51→21:04)
[2022-03-08] MEDS: HEPARIN 5,000 UNIT/1 ML VIAL SUBCUT SCH ×2 (14:52→21:04)
[2022-03-08] MEDS: ISOSORBIDE MONONITRATE 30 MG TABLET PO SCH (14:52)
[2022-03-08] MEDS: AZITHROMYCIN 250 MG TABLET PO SCH (15:31)
[2022-03-08] MEDS: ATORVASTATIN 40 MG TABLET PO SCH (21:02)
[2022-03-08] MEDS: ACETAMINOPHEN 325 MG TABLET PO PRN (21:03)
[2022-03-08] MEDS: TAMSULOSIN 0.4 MG CAPSULE PO SCH (21:03)
[2022-03-08] MEDS: cefTRIAXone 1,000 MG in SODIUM CHLORIDE 0.9% 100 ML IV SCH (21:09)
[2022-03-09] MEDS: ALBUTEROL/IPRATROPIUM 3 ML NEB RESP TX SCH ×4 (00:35→20:02)
[2022-03-09] MEDS: DOCUSATE SODIUM 100 MG CAPSULE PO SCH ×2 (10:03→20:41)
[2022-03-09] MEDS: FERROUS SULFATE 325 MG TABLET PO SCH (10:03)
[2022-03-09] MEDS: carvediloL 25 MG TABLET PO SCH ×2 (10:03→20:41)
[2022-03-09] MEDS: ASPIRIN EC 81 MG TABLET PO SCH (10:03)
[2022-03-09] MEDS: HEPARIN 5,000 UNIT/1 ML VIAL SUBCUT SCH ×2 (10:04→20:41)
[2022-03-09] MEDS: calcitrioL 0.25 MCG CAPSULE PO SCH (10:04)
[2022-03-09] MEDS: CHOLECALCIFEROL 1,000 UNIT TABLET PO SCH (10:04)
[2022-03-09] MEDS: guaiFENesin/DM ER 600-30 MG TABLET PO SCH ×2 (10:04→20:41)
[2022-03-09] MEDS: ASCORBIC ACID 500 MG TABLET PO SCH (10:04)
[2022-03-09] MEDS: AZITHROMYCIN 250 MG TABLET PO SCH (10:04)
[2022-03-09] MEDS: PANTOPRAZOLE 40 MG TABLET PO SCH (10:04)
[2022-03-09] MEDS: ISOSORBIDE MONONITRATE 60 MG TABLET PO SCH (10:14)
[2022-03-09] MEDS: cefTRIAXone 1,000 MG in SODIUM CHLORIDE 0.9% 100 ML IV SCH (20:40)
[2022-03-09] MEDS: ATORVASTATIN 40 MG TABLET PO SCH (20:41)
[2022-03-09] MEDS: TAMSULOSIN 0.4 MG CAPSULE PO SCH (20:41)
[2022-03-10] MEDS: ALBUTEROL/IPRATROPIUM 3 ML NEB RESP TX SCH ×3 (07:16→13:17)
[2022-03-10] MEDS: FERROUS SULFATE 325 MG TABLET PO SCH (11:58)
[2022-03-10] MEDS: PANTOPRAZOLE 40 MG TABLET PO SCH (11:58)
[2022-03-10] MEDS: ISOSORBIDE MONONITRATE 60 MG TABLET PO SCH (11:58)
[2022-03-10] MEDS: guaiFENesin/DM ER 600-30 MG TABLET PO SCH (11:58)
[2022-03-10] MEDS: calcitrioL 0.25 MCG CAPSULE PO SCH (11:58)
[2022-03-10] MEDS: ASPIRIN EC 81 MG TABLET PO SCH (11:58)
[2022-03-10] MEDS: carvediloL 25 MG TABLET PO SCH (11:58)
[2022-03-10] MEDS: ASCORBIC ACID 500 MG TABLET PO SCH (11:58)
[2022-03-10] MEDS: DOCUSATE SODIUM 100 MG CAPSULE PO SCH (11:58)
[2022-03-10] MEDS: CHOLECALCIFEROL 1,000 UNIT TABLET PO SCH (11:59)
[2022-03-10] MEDS: HEPARIN 5,000 UNIT/1 ML VIAL SUBCUT SCH (12:21)
[2022-03-10] MEDS ORDERED: AZITHROMYCIN 250 MG TABLET PO SCH (12:30)
[2022-03-10] MEDS: AZITHROMYCIN 250 MG TABLET PO SCH (12:44)
[2022-03-10 12:45] VITALS: BP 164/84
== END 2022-03-10 17:38 | disposition home health service (06) | DRG 193 ==
LOC: N.ED 19:38 → SUATTDRO 23:21 → N.EDINP 23:21 → N.5E 03-07 02:50
PROVIDERS: ADMIT Family Medicine; ATTEND Internal Medicine